=== PATIENT | female | born 1935 | race Caucasian/White ===

== ENCOUNTER 2020-06-03 17:38 | Inpatient (IN) ==
[2020-06-03] MEDS ORDERED: 0.9 % SODIUM CHLORIDE 1,000 ML IV ONE (18:10)
[2020-06-03] MEDS ORDERED: ONDANSETRON 4 MG/2 ML VIAL IV ONE (18:10)
[2020-06-03] MEDS ORDERED: VANCOMYCIN 1,000 MG in 0.9 % SODIUM CHLORIDE 250 ML IV ONE (18:10)
[2020-06-03] MEDS ORDERED: PIPERACILLIN SODIUM/TAZOBACTAM 3.375 GM in DEXTROSE 5% IN WATER 50 ML IV ONE (18:10)
--- NOTE | 2020-06-03 18:20 | Emergency Department Note ---
Weakness HPI General Chief complaint: Weakness Stated complaint: dizzines, weakness, UTI, fever Time Seen by Provider: 06/03/20 17:57 Source: patient and family Mode of arrival: ambulatory History of Present Illness HPI Narrative: Narrative: 84-year-old female comes in for worsening fever shortness of breath and hypoxia. She lives at [facility]. She Is currently being treated with ciprofloxacin for UTI And has a fever despite this. She is having some nausea but no vomiting or diarrhea. Her oxygen saturation here was 85%. She is not on home oxygen. She is a type I diabetic who takes insulin shots. Aminal pain as well. Denies dysuria. She does endorse a spider bite 2 days ago on her right lower leg that has since turned into redness over her entire right lower leg along with swelling. Related Data Home Medications Medication Instructions Recorded Confirmed hydrocodone 5 mg-acetaminophen 325 1 tab PO Q4-6H PRN 05/15/20 06/03/20 mg tablet blood sugar diagnostic, drum #1 05/30/20 06/03/20 blood-glucose meter, drum-type #1 05/30/20 06/03/20 furosemide 40 mg tablet 40 mg PO QAM 05/30/20 06/03/20 insulin glargine 100 unit/mL 11 unit SUBCUT QPM ml 05/30/20 06/03/20 subcutaneous solution methocarbamol 500 mg tablet 500 mg PO BID PRN tab 05/30/20 06/03/20 metoprolol succinate 25 mg 25 mg PO QDAY 05/30/20 06/03/20 tablet,extended release 24 hr potassium chloride 10 mEq 10 meq PO BID 05/30/20 06/03/20 tablet,extended release Previous Rx's Medication Instructions Recorded fluticasone propionate 50 2 spray INTRANASAL QDAY #16 g 05/15/20 mcg/actuation nasal spray,suspension pen needle, diabetic 31 gauge x #50 each 05/30/20 3/16" atorvastatin 10 mg tablet 10 mg PO QHS #90 tab 06/01/20 losartan 25 mg tablet 25 mg PO QDAY #90 tab 06/01/20 pramipexole 1 mg tablet 1 mg PO HS #90 tab 06/01/20 tamsulosin 0.4 mg capsule 0.4 mg PO HS #90 cap 06/01/20 Allergies Allergy/AdvReac Type Severity Reaction Status Date / Time gabapentin Allergy Unknown LEG Verified 06/03/20 17:45 SWELLING Review of Systems ROS ROS Narrative: Narrative: All systems ED: reviewed and negative except as stated. [facility] Narrative Patient History Narrative: Narrative: Medical/Surgical/Family History All Active Problems (Updated 06/03/20 @ 21:46 by Poncho Caceres MD) Pneumonia (Acute) Sepsis (Acute) Acute respiratory failure with hypoxia (Acute) Cellulitis of leg without foot, right (Acute) Disorder of kidney and ureter (Acute) Renal osteodystrophy (Acute) Vitamin D deficiency (Acute) Anemia of renal disease (Acute) Thoracic radiculitis (Acute) Vertigo (Acute) Acquired absence of other left toe(s) (Acute) Acquired absence of other right toe(s) (Acute) Other hammer toe(s) (acquired), left foot (Acute) Other hammer toe(s) (acquired), right foot (Acute) Hypercholesterolemia (Acute) Chronic kidney disease, stage 3 (moderate) (Acute) Intervertebral disc disorders with radiculopathy, thoracolumbar region (Acute) Menopausal and female climacteric states (Acute) Unspecified osteoarthritis, unspecified site (Acute) Gastro-esophageal reflux disease without esophagitis (Acute) Radiculopathy, lumbosacral region (Acute) Low back pain (Acute) Mixed hyperlipidemia (Acute) History of bunionectomy (Acute) History of total right knee replacement (Acute ~2014) History of total left knee replacement (Acute ~2007) History of surgical procedure (Acute ~2003) History of hysterectomy (Acute ~2003) Vitiligo (Acute) Restless leg (Acute) Proteinuria (Acute) Schatzki's ring (Acute) Osteoporosis (Acute) Depression (Acute) Lower abdominal pain, unspecified (Acute) Other visual disturbances (Acute) Cardiac arrhythmia, unspecified (Acute) Dorsopathy, unspecified (Acute) Dizziness and giddiness (Acute) 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) Other idiopathic scoliosis, site unspecified (Acute) Type 1 diabetes mellitus with hypoglycemia without coma, with long-term current use of insulin (Acute) Type 1 diabetes mellitus with hyperglycemia, without long-term current use of insulin (Acute) Pure hypercholesterolemia (Acute) 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 mellitus (Acute) Insomnia, unspecified (Acute) Edema, unspecified (Acute) Unspecified kidney failure (Acute) Type 1 diabetes mellitus without complications (Acute) Eustachian tube dysfunction (Acute) Poor balance (Acute) 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) History of surgery (Chronic) Radiculopathy, thoracic region (Chronic) Fall (Acute) History of CVA (cerebrovascular accident) (Chronic) History of nephrectomy, right (Chronic) Chronic abdominal pain (Chronic) Hypertension, essential (Chronic) Diabetes mellitus, type 2 (Chronic) Xerotic eczema (Acute) Abdominal pain (Acute) Hypoglycemia (Acute) UTI (urinary tract infection) (Acute) Medical History Acquired absence of other left toe(s) (Acute) Acquired absence of other right toe(s) (Acute) Anemia of renal disease (Acute) Cardiac arrhythmia, unspecified (Acute) Chronic abdominal pain (Chronic) Chronic kidney disease, stage 3 (moderate) (Acute) Depression (Acute) Diabetes mellitus, type 2 (Chronic) 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 mellitus (Acute) Disorder of kidney and ureter (Acute) Dizziness and giddiness (Acute) Dorsopathy, unspecified (Acute) Edema, unspecified (Acute) Gastro-esophageal reflux disease without esophagitis (Acute) History of CVA (cerebrovascular accident) (Chronic) Seen on MRI Hypercholesterolemia (Acute) Hypertension, essential (Chronic) Insomnia, unspecified (Acute) Intervertebral disc disorders with radiculopathy, thoracolumbar region (Acute) Low back pain (Acute) Lower abdominal pain, unspecified (Acute) Menopausal and female climacteric states (Acute) Mixed hyperlipidemia (Acute) Osteoporosis (Acute) Other hammer toe(s) (acquired), left foot (Acute) Other hammer toe(s) (acquired), right foot (Acute) Other idiopathic scoliosis, site unspecified (Acute) Other visual disturbances (Acute) Proteinuria (Acute) Pure hypercholesterolemia (Acute) Radiculopathy, lumbosacral region (Acute) Radiculopathy, thoracic region (Chronic) Renal cell cancer (Resolved) Right; status post nephrectomy Renal osteodystrophy (Acute) Restless leg (Acute) Schatzki's ring (Acute) Thoracic radiculitis (Acute) 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) Type 1 diabetes mellitus with hyperglycemia, without long-term current use of insulin (Acute) Type 1 diabetes mellitus with hypoglycemia without coma, with long-term current use of insulin (Acute) Type 1 diabetes mellitus without complications (Acute) Unspecified kidney failure (Acute) Unspecified osteoarthritis, unspecified site (Acute) Vertigo (Acute) Vitamin D deficiency (Acute) Vitiligo (Acute) Surgical History History of bunionectomy (Acute) Left foot, and right foot 2017 History of hysterectomy (Acute ~2003) poor outcome History of nephrectomy, right (Chronic) History of surgery (Chronic) TESI #1 T9-10 w/o sed 07/07/19 History of surgical procedure (Acute ~2003) urethra surgery-ureter reimplantation, damaged in hysterectomy History of total left knee replacement (Acute ~2007) History of total right knee replacement (Acute ~2014) Total knee replacement status (Acute) Family History (Updated 05/18/20 @ 14:47 by Alycia Bowie) Father , 81 yrs Emphysema, unspecified Stroke Brother Heart disease Type 1 diabetes Social History Smoking Status: Never smoker Alcohol Intake Frequency: a few times a month Substance Use: does not use Exam Narrative Narrative: Narrative: Febrile but mentating normally and able to answer questions appropriately. Alert and oriented.Normocephalic atraumatic. Conjunctive are clear sclerae white nonicteric. No nasal discharge or congestion. Wearing nasal cannula oxygen. Oropharynx pink moist. Neck is supple without lymphadenopathy thyromegaly or carotid bruit. Heart is Mildly tachycardic without murmur. Lungs are clear to auscultation bilaterally I do not hear any rales rhonchi or respiratory distress. However she is clearly hypoxic. I do not see any cyanosis. Abdomen is soft nontender nondistended. The right lower leg has redness circumferentially around the calf area as well as down the anterior portion down to the ankle. The foot and ankle otherwise appear normal. I do not see evidence of an insect bite or feel evidence of an abscess. The knee does not appear to be infected either.She is missing her second toe, this is surgically absent. Oxygen levels maintained on 6 L Nonrebreather mask. She was somnolent but was able to arouse her reevaluate her. Breathing is not labored Course Vital Signs Vital signs: Vital Signs Temperature 102.3 F H 06/03/20 17:39 Pulse Rate 105 H 06/03/20 17:39 Respiratory Rate 18 06/03/20 17:39 Blood Pressure 189/94 06/03/20 17:39 Pulse Oximetry (%) 85 L 06/03/20 17:39 Temperature 98.4 F 06/03/20 19:35 Pulse Rate 99 H 06/03/20 21:47 Respiratory Rate 21 06/03/20 21:47 Blood Pressure 107/55 06/03/20 20:30 Pulse Oximetry (%) 94 06/03/20 21:47 MDM MDM Narrative Medical decision making narrative: Narrative:Does look like she has Several Problems that may or may not be related. Fever hypoxia cellulitis of the right lower leg, Along with difficulty breathing and perhaps abdominal pain/nausea. Concern for respiratory infection along with the lower leg skin infection- This despite being on ciprofloxacin for UTI Will work-up with chest x-ray laboratory. Get blood cultures start IV fluids and IV antibiotics- Zosyn vancomycin. Tylenol for fever ABG shows pH 7.42 PCO2 45 PO2 of 50 On 2 L nasal cannula oxygen, we will put her on nonrebreather mask. Chest x-ray Does not show a pneumonia However CT angiogram does show bilateral small lower lobe infiltrates. Noted leukocytosis Of 17 on laboratory but no lactic acidosis. Patient will need to come in the hospital for treatment of acute respiratory issue and continued IV antibiotic. Discussed situation with Dr. Strickland, Hospitalist. He agreed to accept the patient for further care and evaluation in the hospital Lab Data Lab results reviewed: Yes I reviewed the patient's lab results. Result diagrams: 06/03/20 19:30 06/03/20 18:35 Labs: Lab Results 06/03/20 06/03/20 06/03/20 Range/Units 18:35 18:35 18:35 WBC TNP RBC TNP Hgb TNP Hct TNP MCV TNP MCH TNP MCHC TNP RDW TNP Plt Count TNP MPV TNP Total Counted Seg Neutrophils % (38-78) % Band Neutrophils % (0-10) % Lymphocytes % (15-49) % Monocytes % (Manual) (1-12) % Platelet Estimate (NORMAL) RBC Morphology (NORMAL) VBG Lactic Acid 1.2 (0.5-2.0) mmol/L Sodium 134 (133-145) mmol/L Potassium 4.2 (3.3-5.1) mmol/L Chloride 95 L (96-108) mmol/L Carbon Dioxide 26 (22-30) mmol/L Anion Gap 13.0 (8-16) BUN 15 (8-23) mg/dl Creatinine 1.1 (0.6-1.1) mg/dl GFR Calculation 45 Glucose 149 H (70-105) mg/dL Calcium 9.9 (8.6-10.4) mg/dl Magnesium 1.9 (1.6-2.5) mg/dL Total Bilirubin 1.4 H (0.0-1.0) mg/dL AST 28 (0-37) U/l ALT 20 (0-40) U/l Alkaline Phosphatase 92 (39-117) U/L Total Protein 8.1 (5.9-8.4) gm/dL Albumin 4.3 (3.2-5.2) gm/dL Globulin 3.8 H (2.2-3.7) gm/dL Albumin/Globulin Ratio 1.1 (1.0-2.3) /06/15 Range/Units 19:30 WBC 17.1 H RBC 4.52 Hgb 14.3 Hct 43.7 MCV 96.7 MCH 31.6 MCHC 32.7 RDW 14.0 Plt Count 110 L MPV 11.1 H Total Counted 100 Seg Neutrophils % 74 (38-78) % Band Neutrophils % 8 (0-10) % Lymphocytes % 10 L (15-49) % Monocytes % (Manual) 8 (1-12) % Platelet Estimate Decreased (NORMAL) RBC Morphology Normal (NORMAL) VBG Lactic Acid (0.5-2.0) mmol/L Sodium (133-145) mmol/L Potassium (3.3-5.1) mmol/L Chloride (96-108) mmol/L Carbon Dioxide (22-30) mmol/L Anion Gap (8-16) BUN (8-23) mg/dl Creatinine (0.6-1.1) mg/dl GFR Calculation Glucose (70-105) mg/dL Calcium (8.6-10.4) mg/dl Magnesium (1.6-2.5) mg/dL Total Bilirubin (0.0-1.0) mg/dL AST (0-37) U/l ALT (0-40) U/l Alkaline Phosphatase (39-117) U/L Total Protein (5.9-8.4) gm/dL Albumin (3.2-5.2) gm/dL Globulin (2.2-3.7) gm/dL Albumin/Globulin Ratio (1.0-2.3) Radiology Data Radiology results reviewed: Yes I reviewed the patient's radiology results. Radiology results narrative: Chest x-ray shows no acute infiltrate but increased pulmonary vascular markings noted. CT angiogram shows bilateral lower lobe pneumonia but no Embolism was noted. Linear embolism could not be excluded secondary to artifact CC TIME Critical Care Time Critical Care Time: Yes Total Critical Care Time: 35 Attestation: Approximately 35 minutes of critical care time on this patient. Which includes serial exams, Discussing results with her, documentation and coordination Of care. I was immediately available to the patient the entire time she was in the ER Discharge Plan Patient/Caregiver Discharge Instructions Pt seen by [employer] [facility]KER/PA only: No Clinical Impression: Acute respiratory failure with hypoxia, Cellulitis of leg without foot, right Pneumonia Qualifiers: Pneumonia type: due to unspecified organism Laterality: bilateral Lung location: lower lobe of lung Qualified Code(s): J18.9 - Pneumonia, unspecified organism Sepsis Qualifiers: Sepsis type: sepsis due to unspecified organism Sepsis acute organ dysfunction status: unspecified Qualified Code(s): A41.9 - Sepsis, unspecified organism Patient Disposition: Xfer As Inpt ([facility]) Condition: Serious Follow up with: Ale Long PA-C [Primary Care Provider] - Prescriptions: No Action insulin glargine 100 unit/mL solution 11 unit subcut QPM RF: 0 methocarbamol 500 mg tablet 500 mg PO BID PRN (Reason: muscle spasm) RF: 0 metoprolol succinate 25 mg tablet extended release 24 hr 25 mg PO QDAY RF: 0 furosemide 40 mg tablet 40 mg PO QAM RF: 0 potassium chloride 10 mEq tablet extended release 10 meq PO BID RF: 0 (DME) pen needle, diabetic [BD Ultra-Fine Mini Pen Needle] 31 gauge x 3/16" needle See Rx Instructions .ROUTE .MEDSUPPLY Qty: 50 RF: 0 (DME) blood-glucose meter, drum-type Kit See Rx Instructions .ROUTE .MEDSUPPLY Qty: 1 RF: 0 (DME) blood sugar diagnostic, drum Strip See Rx Instructions .ROUTE .MEDSUPPLY Qty: 1 RF: 0 atorvastatin 10 mg tablet 10 mg PO QHS Qty: 90 RF: 0 losartan 25 mg tablet 25 mg PO QDAY Qty: 90 RF: 0 pramipexole 1 mg tablet 1 mg PO HS Qty: 90 RF: 0 tamsulosin 0.4 mg capsule 0.4 mg PO HS Qty: 90 RF: 0 hydrocodone-acetaminophen 5-325 mg tablet 1 tab PO Q4-6H PRN (Reason: Pain) RF: 0 fluticasone propionate [Flonase Allergy Relief] 50 mcg/actuation spray,suspension 2 spray INTRANASAL QDAY Qty: 16 RF: 3
[2020-06-03] MEDS ORDERED: ACETAMINOPHEN 325 MG TABLET PO ONE (19:17)
[2020-06-03 19:56] LABS: Hematocrit 43.7 % (34.1-44.9); Hemoglobin 14.3 g/dL (11.2-15.7); Mean Cell Volume 96.7 fL (80.0-100.0); Mean Corpuscular HGB Conc 32.7 g/dL (31.0-36.0); Mean Platelet Volume 11.1 fL (7.4-10.4); RBC 4.52 M/mcL (3.59-5.38); WBC 17.1 K/mcL (4.50-11.00)
[2020-06-03 19:56] LABS: ALT/SGPT 20 U/l (0-40); AST/SGOT 28 U/l (0-37); Albumin 4.3 gm/dL (3.2-5.2); Albumin/Globulin Ratio 1.1 (1.0-2.3); Alkaline Phosphatase 92 U/L (39-117); Bilirubin,Total 1.4 mg/dL (0.0-1.0); Blood Urea Nitrogen 15 mg/dl (8-23); Calcium 9.9 mg/dl (8.6-10.4); Carbon Dioxide 26 mmol/L (22-30); Globulin 3.8 gm/dL (2.2-3.7); Glomerular Filtration Rate 45; Glucose 149 mg/dL (70-105)
[2020-06-03 19:58] LABS: Platelet Count 110 K/mcL (140-440)
[2020-06-03 19:58] LABS: Chloride 95 mmol/L (96-108)
[2020-06-03] MEDS ORDERED: MELATONIN 3 MG TABLET PO PRN (21:00)
[2020-06-03 21:15] LABS: Band Neutrophils % 8 % (0-10); Lymphocytes % 10 % (15-49); Monocytes % (Manual) 8 % (1-12); Platelet Estimate DECREASED (NORMAL); RBC Morphology NORMAL (NORMAL); Segmented Neutrophils % 74 % (38-78)
--- NOTE | 2020-06-03 22:08 | Internal Med History&Physical ---
HPI History of Present Illness Patient information: Note initiated : 06/03/20 at 10:06 pm Service Date, if different from initiated Date: [] Patient: Shakira Hou a 84 y/o F admitted on for dizzines, weakness, UTI, fever. Chief Complaint: Fever/weakness and dizziness History of present illness: Ms. Hou is a 84 year old F resident of assisted living who presents to the ER with 2 days onset of worsening weakness, dizziness fever and shortness of breath. She was undergoing treatment on ciprofloxacin for UTI. However her symptoms have continued to progress. She also noticed right lower extremity redness and swelling following a spider bite 3 days ago which is now extremely tender to touch and while weightbearing. Initial work-up in the ER was consistent with severe sepsis with a white count of 17,000. She was in respiratory failure requiring 6 L oxygen/bilateral lower lobe pneumonia on CT and pyuria. Patient was promptly started on antibiotics after cultures were drawn. Hospitalist service was consulted. At the time of evaluation patient is alert and oriented. She was able to answer most questions. She is significantly short of breath requiring 6 L oxygen. She endorses to history as above. Denies chest pain, headache, photophobia Review of systems 10 point review of system was performed and is negative except for ones discussed above [facility] Medical History Acquired absence of other left toe(s) (Acute) Acquired absence of other right toe(s) (Acute) Anemia of renal disease (Acute) Cardiac arrhythmia, unspecified (Acute) Chronic abdominal pain (Chronic) Chronic kidney disease, stage 3 (moderate) (Acute) Depression (Acute) Diabetes mellitus, type 2 (Chronic) 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 mellitus (Acute) Disorder of kidney and ureter (Acute) Dizziness and giddiness (Acute) Dorsopathy, unspecified (Acute) Edema, unspecified (Acute) Gastro-esophageal reflux disease without esophagitis (Acute) History of CVA (cerebrovascular accident) (Chronic) Seen on MRI Hypercholesterolemia (Acute) Hypertension, essential (Chronic) Insomnia, unspecified (Acute) Intervertebral disc disorders with radiculopathy, thoracolumbar region (Acute) Low back pain (Acute) Lower abdominal pain, unspecified (Acute) Menopausal and female climacteric states (Acute) Mixed hyperlipidemia (Acute) Osteoporosis (Acute) Other hammer toe(s) (acquired), left foot (Acute) Other hammer toe(s) (acquired), right foot (Acute) Other idiopathic scoliosis, site unspecified (Acute) Other visual disturbances (Acute) Proteinuria (Acute) Pure hypercholesterolemia (Acute) Radiculopathy, lumbosacral region (Acute) Radiculopathy, thoracic region (Chronic) Renal cell cancer (Resolved) Right; status post nephrectomy Renal osteodystrophy (Acute) Restless leg (Acute) Schatzki's ring (Acute) Thoracic radiculitis (Acute) 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) Type 1 diabetes mellitus with hyperglycemia, without long-term current use of insulin (Acute) Type 1 diabetes mellitus with hypoglycemia without coma, with long-term current use of insulin (Acute) Type 1 diabetes mellitus without complications (Acute) Unspecified kidney failure (Acute) Unspecified osteoarthritis, unspecified site (Acute) Vertigo (Acute) Vitamin D deficiency (Acute) Vitiligo (Acute) Surgical History History of bunionectomy (Acute) Left foot, and right foot 2017 History of hysterectomy (Acute ~2003) poor outcome History of nephrectomy, right (Chronic) History of surgery (Chronic) TESI #1 T9-10 w/o sed 07/07/19 History of surgical procedure (Acute ~2003) urethra surgery-ureter reimplantation, damaged in hysterectomy History of total left knee replacement (Acute ~2007) History of total right knee replacement (Acute ~2014) Total knee replacement status (Acute) Family History (Updated 05/18/20 @ 14:47 by Alycia Bowie) Father , 81 yrs Emphysema, unspecified Stroke Brother Heart disease Type 1 diabetes Social History (Updated 05/18/20 @ 14:47 by Alycia Bowie) marital status: smoking status: Never smoker alcohol intake frequency: a few times a month substance use type: does not use MEDS/ALLERGIES Home Medications and Allergies Home Medications Medication Instructions Recorded Confirmed Type fluticasone propionate 50 2 spray INTRANASAL QDAY #16 g 05/15/20 06/03/20 Rx mcg/actuation nasal spray,suspension hydrocodone 5 mg-acetaminophen 325 1 tab PO Q4-6H PRN 05/15/20 06/03/20 History mg tablet blood sugar diagnostic, drum #1 05/30/20 06/03/20 History blood-glucose meter, drum-type #1 05/30/20 06/03/20 History furosemide 40 mg tablet 40 mg PO QAM 05/30/20 06/03/20 History insulin glargine 100 unit/mL 11 unit SUBCUT QPM ml 05/30/20 06/03/20 History subcutaneous solution methocarbamol 500 mg tablet 500 mg PO BID PRN tab 05/30/20 06/03/20 History metoprolol succinate 25 mg 25 mg PO QDAY 05/30/20 06/03/20 History tablet,extended release 24 hr pen needle, diabetic 31 gauge x #50 each 05/30/20 06/03/20 Rx 3/16" potassium chloride 10 mEq 10 meq PO BID 05/30/20 06/03/20 History tablet,extended release atorvastatin 10 mg tablet 10 mg PO QHS #90 tab 06/01/20 06/03/20 Rx losartan 25 mg tablet 25 mg PO QDAY #90 tab 06/01/20 06/03/20 Rx pramipexole 1 mg tablet 1 mg PO HS #90 tab 06/01/20 06/03/20 Rx tamsulosin 0.4 mg capsule 0.4 mg PO HS #90 cap 06/01/20 06/03/20 Rx Allergies Allergy/AdvReac Type Severity Reaction Status Date / Time gabapentin Allergy Unknown LEG Verified 06/03/20 17:45 SWELLING EXAM Constitutional Vitals: Temp Pulse Resp BP Pulse Ox 98.4 F 99 H 21 107/55 94 06/03/20 19:35 06/03/20 21:47 06/03/20 21:47 06/03/20 20:30 06/03/20 21:47 Patient is fatigued, lethargic but oriented Head normocephalic Oral cavity moist No ear nose discharge Asymmetric eyelids however conjugate gaze Neck supple no lymphadenopathy S1-S2 occasionally irregular Nonlabored breathing Nondistended nontender abdomen Lower extremity rt-redness/erythema mid leg, lymphedema bilateral lower extremity Skin no suspicious lesion Psych anxious but alert cooperative Neuro normal higher function DATA Data Completed and Pending Labs on day of discharge: Labs from last 24 hours 06/03/20 06/03/20 06/03/20 19:45 19:30 18:35 WBC 17.1 H RBC 4.52 Hgb 14.3 Hct 43.7 MCV 96.7 MCH 31.6 MCHC 32.7 RDW 14.0 Plt Count 110 L MPV 11.1 H Total Counted 100 Seg Neutrophils % 74 Band Neutrophils % 8 Lymphocytes % 10 L Monocytes % (Manual) 8 Platelet Estimate Decreased RBC Morphology Normal VBG Lactic Acid 1.2 Sodium Potassium Chloride Carbon Dioxide Anion Gap BUN Creatinine GFR Calculation Glucose Calcium Magnesium Total Bilirubin AST ALT Alkaline Phosphatase Total Protein Albumin Globulin Albumin/Globulin Ratio Procalcitonin Pending 06/03/20 06/03/20 18:35 18:35 WBC TNP RBC TNP Hgb TNP Hct TNP MCV TNP MCH TNP MCHC TNP RDW TNP Plt Count TNP MPV TNP Total Counted Seg Neutrophils % Band Neutrophils % Lymphocytes % Monocytes % (Manual) Platelet Estimate RBC Morphology VBG Lactic Acid Sodium 134 Potassium 4.2 Chloride 95 L Carbon Dioxide 26 Anion Gap 13.0 BUN 15 Creatinine 1.1 GFR Calculation 45 Glucose 149 H Calcium 9.9 Magnesium 1.9 Total Bilirubin 1.4 H AST 28 ALT 20 Alkaline Phosphatase 92 Total Protein 8.1 Albumin 4.3 Globulin 3.8 H Albumin/Globulin Ratio 1.1 Procalcitonin A/P Narrative A/P Narrative: * Severe sepsis with end organ dysfunction, elevated bilirubin/creatinine/hypoxia. White count 17 K continue sepsis management guidelines. Vasopressors if indicated. Pancultures and broad antibiotics * Hypoxic resp failure secondary to bilateral lower lobe pneumonia. Continue supplemental oxygen/pulmonary toilet and aspiration precautions * B/L LL PNA-start broad antibiotic coverage. * LE cellulitis-antibiotic coverage/limb elevation * Complicated UTI-antibiotic coverage * History of DM type II continue basal prandial insulin * History of hypertension hold antihypertensives * Restless leg syndrome continue pramipexole * Hyperlipidemia on statin * Lymphedema on torsemide * Chronic pain on hydrocodone * Full code * Prophylaxis Heparin PLAN * PCU inpatient admit * Broad ABx * Supplemental O2 * ABG/CXR * Pre-existing medical condition management as above * PT OT/nutrition support Time Spent With Patient Time: Total time spent is greater than 50% in coordination of care (as documented) at patient's floor/unit and/or counseling patient:
[2020-06-03] MEDS ORDERED: HYDROcodone/APAP 5/325MG TABLET PO PRN (23:05)
[2020-06-03] MEDS ORDERED: POLYETHYLENE GLYCOL 3350 17 GM PACKET PO PRN (23:05)
[2020-06-03] MEDS ORDERED: [UNRECOGNIZED DRUG - OTHER] SCH (23:05)
[2020-06-03] MEDS ORDERED: VANCOMYCIN PER PHARMACY IV SCH (23:05)
[2020-06-03] MEDS ORDERED: ACETAMINOPHEN 325 MG TABLET PO PRN (23:05)
[2020-06-03] MEDS ORDERED: [UNRECOGNIZED DRUG - OTHER] SCH (23:05)
[2020-06-03] MEDS ORDERED: ACETAMINOPHEN 650 MG/65 ML BOTTLE IV PRN (23:05)
[2020-06-03] MEDS ORDERED: ONDANSETRON 4 MG/2 ML VIAL IV PRN (23:05)
[2020-06-03] MEDS ORDERED: BISACODYL 10 MG SUPP.RECT PR PRN (23:05)
[2020-06-03] MEDS ORDERED: ONDANSETRON 4 MG ODT TABLET SL PRN (23:05)
[2020-06-03] MEDS ORDERED: DIABETIC SCH (23:05)
[2020-06-03] MEDS ORDERED: DEXTROSE 50% 50 ML VIAL IV PRN (23:05)
[2020-06-03] MEDS ORDERED: METHOCARBAMOL 500 MG TABLET PO PRN (23:05)
[2020-06-03] MEDS ORDERED: guaiFENesin/CODEINE 10 ML UDC PO PRN (23:05)
[2020-06-03] MEDS ORDERED: DEXTROSE 31 GM ORAL.SUSP PO PRN (23:05)
[2020-06-03] MEDS ORDERED: [UNRECOGNIZED DRUG - OTHER] SCH (23:05)
[2020-06-03] MEDS ORDERED: MAGNESIUM SULFATE 2 GM/50 ML BAG IV PRN (23:05)
[2020-06-03] MEDS ORDERED: POTASSIUM CHLORIDE 20 MEQ PACKET PO PRN (23:05)
[2020-06-03] MEDS: PIPERACILLIN SODIUM/TAZOBACTAM 3.375 GM in DEXTROSE 5% IN WATER 50 ML IV SCH (23:45)
[2020-06-03] MEDS: 0.9 % SODIUM CHLORIDE 10 ML SYRINGE IV SCH (23:59)
[2020-06-03] MEDS: 0.9 % SODIUM CHLORIDE 1,000 ML IV SCH (23:59)
[2020-06-04 01:10] LABS: Appearance,Urine CLEAR; Bacteria,Urine 0 /hpf (0); Bilirubin,Urine NEG (NEG); Color,Urine YELLOW; Culture Indicated,Urine NO; Glucose,Urine (UA) 50 mg/dL (NEG); Ketones,Urine NEG (NEG); Leukocyte Esterase,Urine NEG /uL (NEG); Nitrate,Urine NEG (NEG); Protein,Urine 100 mg/dL (NEG); Specific Gravity,Urine 1.027 (1.000-1.035); Urine Blood NEG mg/dL (<0.03); Urine RBC 2 /hpf (0-1); Urine Squamous Epithelial Cell < 1 /hpf (0-4); Urine WBC 2 /hpf (0-4); Urobilinogen,Urine NEG (NEG)
[2020-06-04] MEDS: PIPERACILLIN SODIUM/TAZOBACTAM 3.375 GM in DEXTROSE 5% IN WATER 50 ML IV SCH ×4 (04:56→23:54)
[2020-06-04] MEDS: 0.9 % SODIUM CHLORIDE 10 ML SYRINGE IV SCH ×3 (04:57→21:21)
--- NOTE | 2020-06-04 05:33 | XRay Report ---
CLINICAL INFORMATION: fever, SOB, hypoxia COMPARISON: 08/04/2007 two-view chest and portable chest 12/23/2006 FINDINGS: Mild cardiomegaly is new from prior exam. Tortuous thoracic aorta appreciated. Pulmonary vessels are mildly distended. Minimal interstitial edema seen throughout both lungs with tiny amount of fluid in the minor fissure and a left pleural effusion. There is minimal airspace disease both medial bases - likely atelectasis. IMPRESSION: Mild CHF Minor airspace disease both medial bases likely atelectasis Interpreted and Authenticated by: Dima Shell 06/04/20
[2020-06-04 06:26] LABS: Hemoglobin 13.4 g/dL (11.2-15.7); Mean Cell Volume 101.9 fL (80.0-100.0); Mean Corpuscular HGB Conc 30.5 g/dL (31.0-36.0); Mean Platelet Volume 10.7 fL (7.4-10.4); Platelet Count 104 K/mcL (140-440); RBC 4.32 M/mcL (3.59-5.38); Red Cell Distribution Width 14.2 % (11.5-14.5); WBC 16.4 K/mcL (4.50-11.00)
--- NOTE | 2020-06-04 06:38 | Cat Scan Report ---
CLINICAL INFORMATION: Hypoxia and fever COMPARISON: None. TECHNIQUE: ml of Isovue-370 were injected intravenously. Using SmartPrep to maximize pulmonary artery opacification, .625mm helical slices were obtained from the lung apices through the lung bases. Following reconstruction, 2.5 mm sagittal, coronal, and axial reformations were processed. The exam was reviewed at mediastinal, lung, and bone windows. The exam was performed using radiation dose optimization techniques including, but not limited to, automated exposure control, adjustment of the mA and/or kV according to patient size and use of iterative reconstruction technique. FINDINGS: Mediastinal windows show poor opacification of pulmonary arteries. There is no evidence of central emboli, however. The central pulmonary arteries are mildly enlarged with a mean pulmonary diameter of 3.5 cm. Thoracic aorta is well-opacified and normal in diameter. Heart is moderately enlarged with heavy calcific plaque in the coronary arteries. There is no adenopathy in the mediastinal hilar or axillary region. Mild edema is seen in the mediastinum. Multinodular adenomatous thyroid goiter appreciated. Esophagus is grossly normal. Pulmonary parenchymal windows show subsegmental atelectasis in both posterior lower lobes. No effusions. Bone windows show moderate degenerative disease throughout the thoracic spine, but no focal osseous lesions. Images through the superior abdomen show small amount of ascites in the upper abdomen. IMPRESSION: 1. Limited exam due to poor opacification of pulmonary arteries. No evidence of central emboli. Consider VQ scan for pulmonary embolus is strongly suspected. 2. Subsegmental atelectasis - both posterior lower lobes 3. Mild mediastinal edema significance and etiology uncertain. It may be related to prior CHF 4. Moderate cardiomegaly with very heavy calcific plaque in the coronary arteries 5. Small amount of ascites. Interpreted and Authenticated by: Dima Shell 06/04/20
[2020-06-04 06:49] LABS: Chloride 97 mmol/L (96-108)
[2020-06-04 06:52] LABS: ALT/SGPT 17 U/l (0-40); AST/SGOT 32 U/l (0-37); Albumin 2.8 gm/dL (3.2-5.2); Albumin/Globulin Ratio 0.8 (1.0-2.3); Alkaline Phosphatase 73 U/L (39-117); Bilirubin,Direct 0.3 mg/dL (0.0-0.3); Bilirubin,Total 1.3 mg/dL (0.0-1.0); Blood Urea Nitrogen 15 mg/dl (8-23); Calcium 8.5 mg/dl (8.6-10.4); Carbon Dioxide 19 mmol/L (22-30); Globulin 3.4 gm/dL (2.2-3.7); Glomerular Filtration Rate 51; Glucose 160 mg/dL (70-105); Lactate Dehydrogenase 360 U/L (94-250); Phosphorous 4.3 mg/dL (2.7-4.5); Triglycerides 69 mg/dl (<150); Uric Acid 2.8 mg/dL (2.5-8.0)
[2020-06-04 07:58] LABS: Band Neutrophils % 2 % (0-10); Lymphocytes % 7 % (15-49); Macrocytosis 1+ (NONE SEEN); Monocytes % (Manual) 3 % (1-12); Platelet Estimate DECREASED (NORMAL); RBC Morphology ABNORM (NORMAL); Segmented Neutrophils % 88 % (38-78)
[2020-06-04] MEDS: MULTIVIT,THER IRON,CA,FA & MIN 1 TABLET PO SCH (08:21)
[2020-06-04] MEDS: METOPROLOL SUCCINATE 25 MG TAB.XL.24H PO SCH (08:21)
[2020-06-04] MEDS: INSULIN LISPRO 1 UNIT/0.01 ML UNIT SQ SCH ×4 (08:21→21:21)
[2020-06-04] MEDS: FUROSEMIDE 40 MG TABLET PO SCH (08:21)
[2020-06-04] MEDS: POTASSIUM CHLORIDE 10 MEQ TABLET PO SCH ×2 (08:21→17:40)
[2020-06-04] MEDS: sitaGLIPtin 50 MG TABLET PO SCH (08:21)
[2020-06-04] MEDS: DOCUSATE SODIUM 100 MG CAPSULE PO SCH ×2 (08:21→21:20)
[2020-06-04] MEDS: HEPARIN 5,000 UNIT/ML VIAL SQ SCH ×2 (08:22→21:20)
[2020-06-04] MEDS: FLUTICASONE PROPIONATE SPRAY.NAS NS SCH (08:22)
[2020-06-04] MEDS: VANCOMYCIN 1,000 MG in 0.9 % SODIUM CHLORIDE 250 ML IV SCH (08:58)
--- NOTE | 2020-06-04 10:20 | Internal Med Progress Note ---
SUBJECTIVE Subjective Patient information: Note initiated : 06/04/20 at 10:14 am Service Date, if different from initiated Date: [] Patient: Shakira Hou a 84 y/o F admitted on 06/03/20 for dizzines, weakness, UTI, fever. Chief Complaint: Ms. Hou is a 84 year old F resident of assisted living who presents to the ER with 2 days onset of worsening weakness, dizziness fever and shortness of breath. She was undergoing treatment on ciprofloxacin for UTI. However her symptoms have continued to progress. She also noticed right lower extremity redness and swelling following a spider bite 3 days ago which is now extremely tender to touch and while weightbearing. Initial work-up in the ER was consistent with severe sepsis with a white count of 17,000. She was in respiratory failure requiring 6 L oxygen/bilateral lower lobe pneumonia on CT and pyuria. Patient was promptly started on antibiotics after cultures were drawn. Hospitalist service was consulted. At the time of evaluation patient is alert and oriented. She was able to answer most questions. She is significantly short of breath requiring 6 L oxygen. She endorses to history as above. Denies chest pain, headache, photophobia 06/04-much improved dizziness and weakness however remains on 6 L oxygen. White count improving. Lower extremity redness and swelling much improved, more lucid alert. No overnight telemetry events. Cultures negative so far. Constitutional Vitals: Vital Signs Temp Pulse Resp BP Pulse Ox 99.6 F H 97 H 23 H 108/55 94 06/04/20 04:01 06/04/20 08:34 06/04/20 09:44 06/04/20 08:34 06/04/20 08:34 Period Temp Pulse Resp BP Sys/Glez Pulse Ox Last 24 Hr 98.1 F-102.3 F 79-106 18-37 96-189/48-149 85-100 Intake and Output 06/03/20 06/04/20 06/04/20 21:59 05:59 13:59 Intake Total 1300 550 240 Output Total 700 200 Balance 1300 -150 40 Weight 68.039 kg 67.84 kg Alert oriented On 6 L oxygen Improving lymphedema/lower extremity redness No anxiety Intake & Output: Intake & Output 06/03/20 06/04/20 06/04/20 21:59 05:59 13:59 Intake Total 1300 550 240 Output Total 700 200 Balance 1300 -150 40 Weight 68.039 kg 67.84 kg Intake: IV 1300 100 Sodium Chloride 0.9% 1,000 ml @ 1000 Wide Open IV .Q0M ONE Rx#: [id number] Zosyn 3.375 gm In Dextrose 5% 50 100 in Water 50 ml @ 100 mls/hr IV Q6H [facility] Rx#:[id number] Vancomycin 1,000 mg In Sodium 250 Chloride 0.9% 250 ml @ 250 mls/ hr IV ONCE ONE Rx#:[id number] Oral 450 240 Output: Void Amount 700 200 Other: Meal Breakfast Percent of Meal Consumed 100% Urine Appearance Clear Clear Urine Color Dark [place] Bright Yellow Urine Odor Strong OBJ DATA Labs CBC & Chem 7: 06/04/20 05:35 06/04/20 05:35 Labs: Abnormal Lab Results 06/04/20 06/04/20 06/03/20 05:35 05:35 23:35 WBC 16.4 H MCV 101.9 H MCHC 30.5 L Plt Count 104 L MPV 10.7 H Seg Neutrophils % 88 H Lymphocytes % 7 L RBC Morphology Abnorm A Macrocytosis 1+ A Sodium 130 L Chloride Carbon Dioxide 19 L Glucose 160 H Calcium 8.5 L Total Bilirubin 1.3 H Lactate Dehydrogenase 360 H Albumin 2.8 L Globulin Albumin/Globulin Ratio 0.8 L Urine Protein 100 A Urine Glucose (UA) 50 A Urine RBC 2 H 06/03/20 06/03/20 19:30 18:35 WBC 17.1 H MCV MCHC Plt Count 110 L MPV 11.1 H Seg Neutrophils % Lymphocytes % 10 L RBC Morphology Macrocytosis Sodium Chloride 95 L Carbon Dioxide Glucose 149 H Calcium Total Bilirubin 1.4 H Lactate Dehydrogenase Albumin Globulin 3.8 H Albumin/Globulin Ratio Urine Protein Urine Glucose (UA) Urine RBC Meds: Medications Acetaminophen (Tylenol) 650 mg PO Q4-6HP PRN; Protocol PRN Reason: Per Pain Protocol/Fever > 101 Hydrocodone Bitart/Acetaminophen ([place] 5/325mg) 1 tab PO Q4-6HP PRN; Protocol PRN Reason: Pain Atorvastatin Calcium (Lipitor) 10 mg PO HS [facility] Bisacodyl (Dulcolax) 10 mg [place] Q2-3DAYS PRN PRN Reason: Constipation Dextrose (Dextrose 50%) 0 ml IV UD PRN PRN Reason: Hypoglycemia Diagnostic Test (Pha) (Accu-Chek) 1 each FS ACHS [facility] Last Admin: 06/04/20 08:20 Dose: 1 each Documented by: Docusate Sodium (Colace) 100 mg PO BID [facility] Last Admin: 06/04/20 08:21 Dose: 100 mg Documented by: Fluticasone Propionate (Flonase) 1 spray NS DAILY [facility] Last Admin: 06/04/20 08:22 Dose: Not Given Documented by: Furosemide (Lasix) 40 mg PO QAM [facility] Last Admin: 06/04/20 08:21 Dose: 40 mg Documented by: Glucose (Insta-Glucose) 15 gm PO PRN PRN PRN Reason: Hypoglycemia Guaifenesin/Codeine Phosphate (Robitussin Ac) 10 ml PO Q4HP PRN PRN Reason: Cough Heparin Sodium (Porcine) (Heparin) 5,000 unit SQ Q12 [facility] Last Admin: 06/04/20 08:22 Dose: 5,000 unit Documented by: Sodium Chloride (Sodium Chloride 0.9%) 1,000 mls @ 50 mls/hr IV .Q20H [facility] Stop: 06/06/20 11:04 Last Admin: 06/03/20 23:59 Dose: 50 mls/hr Documented by: Acetaminophen (Ofirmev) 650 mg in 65 mls @ 130 mls/hr IV Q6HP PRN; Protocol PRN Reason: Per Pain Protocol/Fever > 101 Magnesium Sulfate (Magnesium Sulfate) 2 gm in 50 mls @ 50 mls/hr IV UD PRN PRN Reason: MG = or < 1.7 Piperacillin Sod/Tazobactam (Sod 3.375 gm/ Dextrose) 50 mls @ 100 mls/hr IV Q6H [facility]; Protocol Last Infusion: 06/04/20 05:26 Dose: Infused Documented by: Vancomycin HCl 1,000 mg/ (Sodium Chloride) 250 mls @ 250 mls/hr IV DAILY [facility] Last Admin: 06/04/20 08:58 Dose: 250 mls/hr Documented by: Insulin Glargine (Lantus) 11 unit SQ QPM [facility] Insulin Human Lispro (Humalog) 0 unit SQ ACHS [facility]; Protocol Last Admin: 06/04/20 08:21 Dose: 1 unit Documented by: Iron Carb/Multivit/Copan/Folic Acid (Multivitamin W/Minerals) 1 tab PO DAILY [facility] Last Admin: 06/04/20 08:21 Dose: 1 tab Documented by: Melatonin (Melatonin 3mg Tablet) 3 mg PO HSP PRN PRN Reason: Insomnia Methocarbamol (Robaxin) 500 mg PO BIDP PRN PRN Reason: muscle spasm Metoprolol Succinate (Toprol Xl) 25 mg PO QDAY [facility] Last Admin: 06/04/20 08:21 Dose: 25 mg Documented by: Ondansetron HCl (Zofran Odt) 4 mg SL Q4-6HP PRN; Protocol PRN Reason: Nausea And Vomiting Ondansetron HCl (Zofran) 4 mg IV Q4-6HP PRN; Protocol PRN Reason: Nausea And Vomiting Polyethylene Glycol (Miralax) 17 gm PO DAILYP PRN PRN Reason: Constipation Potassium Chloride (Kdur) 10 meq PO BIDCC [facility] Last Admin: 06/04/20 08:21 Dose: 10 meq Documented by: Potassium Chloride (Klor-Con) 40 meq PO DAILYP PRN PRN Reason: K+ < 3.5 Pramipexole Dihydrochloride (Mirapex) 0.75 mg PO HS [facility] Senna/Docusate Sodium (Senna Plus Tablet) 1 tab PO HS [facility] Sitagliptin Phosphate (Januvia) 50 mg PO DAILY [facility] Last Admin: 06/04/20 08:21 Dose: 50 mg Documented by: Sodium Chloride (Saline Flush) 10 ml IV Q8 [facility] Last Admin: 06/04/20 04:57 Dose: Not Given Documented by: Tamsulosin HCl (Flomax) 0.4 mg PO HS [facility] Vancomycin HCl (Vancomycin Per Pharmacy) 1 order IV UD [facility]; Protocol A/P Narrative A/P Narrative: * Severe sepsis with end organ dysfunction, elevated bilirubin/creatinine/hypoxia. White count improving. Await pancultures, continue broad antibiotics * Hyponatremia at 130. Continue monitoring. * Hypoxic resp failure secondary to bilateral lower lobe pneumonia. Continue supplemental oxygen/pulmonary toilet and aspiration precautions * B/L LL PNA- continue broad antibiotic coverage/pulmonary toilet * LE cellulitis-continue antibiotic coverage/limb elevation * Complicated UTI-improving on antibiotics * History of DM type II continue basal prandial insulin * History of hypertension hold antihypertensives until systolics over 140 * Restless leg syndrome continue pramipexole * Hyperlipidemia on statin * Lymphedema on torsemide * Chronic pain on hydrocodone * Full code * Prophylaxis Heparin PLAN * Continue antibiotic coverage and de-escalate based on sensitivities * Wean oxygen as tolerated * Serial ABG/CXR * Pre-existing medical condition management as above * PT OT/nutrition support Time Spent With Patient Time: Total time spent is greater than 50% in coordination of care (as documented) at patient's floor/unit and/or counseling patient: QUALITY Stroke Symptom Onset Unknown: No VTE Deep Vein Thrombosis/Pulmonary Embolism Present on Admission: No
[2020-06-04] MEDS ORDERED: PRAMIPEXOLE 0.25 MG TABLET PO SCH (21:00)
[2020-06-04] MEDS ORDERED: ATORVASTATIN 10 MG TABLET PO SCH (21:00)
[2020-06-04] MEDS ORDERED: INSULIN GLARGINE, HUMAN 1 UNIT/0.01 ML SQ SCH (21:00)
[2020-06-04] MEDS ORDERED: SENNOSIDES/DOCUSATE SODIUM 1 TAB TABLET PO SCH (21:00)
[2020-06-04] MEDS ORDERED: TAMSULOSIN 0.4 MG CAPSULE PO SCH (21:00)
[2020-06-04] MEDS: 0.9 % SODIUM CHLORIDE 1,000 ML IV SCH (21:05)
[2020-06-05] MEDS: 0.9 % SODIUM CHLORIDE 10 ML SYRINGE IV SCH ×3 (05:44→21:04)
[2020-06-05] MEDS: PIPERACILLIN SODIUM/TAZOBACTAM 3.375 GM in DEXTROSE 5% IN WATER 50 ML IV SCH ×4 (05:44→23:27)
[2020-06-05 06:15] LABS: Hematocrit 40.7 % (34.1-44.9); Hemoglobin 12.7 g/dL (11.2-15.7); Mean Corpuscular HGB Conc 31.2 g/dL (31.0-36.0); Mean Platelet Volume 11.2 fL (7.4-10.4); Platelet Count 104 K/mcL (140-440); RBC 4.07 M/mcL (3.59-5.38); Red Cell Distribution Width 14.1 % (11.5-14.5); WBC 10.5 K/mcL (4.50-11.00)
[2020-06-05 06:39] LABS: ALT/SGPT 14 U/l (0-40); AST/SGOT 20 U/l (0-37); Albumin 2.6 gm/dL (3.2-5.2); Albumin/Globulin Ratio 0.9 (1.0-2.3); Alkaline Phosphatase 62 U/L (39-117); Bilirubin,Direct 0.2 mg/dL (0.0-0.3); Bilirubin,Total 0.6 mg/dL (0.0-1.0); Blood Urea Nitrogen 22 mg/dl (8-23); Calcium 8.2 mg/dl (8.6-10.4); Chloride 98 mmol/L (96-108); Glucose 167 mg/dL (70-105); Lactate Dehydrogenase 215 U/L (94-250); Phosphorous 3.2 mg/dL (2.7-4.5); Triglycerides 109 mg/dl (<150); Uric Acid 2.6 mg/dL (2.5-8.0)
[2020-06-05 06:41] LABS: Carbon Dioxide 26 mmol/L (22-30); Glomerular Filtration Rate 37
[2020-06-05] MEDS ORDERED: FUROSEMIDE 40 MG/4 ML VIAL IV ONE (07:39)
[2020-06-05 07:47] LABS: Band Neutrophils % 3 % (0-10); Lymphocytes % 5 % (15-49); Macrocytosis 1+ (NONE SEEN); Monocytes % (Manual) 3 % (1-12); Platelet Estimate DECREASED (NORMAL); RBC Morphology ABNORM (NORMAL); Segmented Neutrophils % 89 % (38-78)
[2020-06-05] MEDS: INSULIN LISPRO 1 UNIT/0.01 ML UNIT SQ SCH ×4 (08:04→21:30)
[2020-06-05] MEDS: POTASSIUM CHLORIDE 10 MEQ TABLET PO SCH ×3 (08:05→21:01)
[2020-06-05] MEDS: sitaGLIPtin 50 MG TABLET PO SCH (08:06)
[2020-06-05] MEDS: FUROSEMIDE 40 MG TABLET PO SCH (08:06)
[2020-06-05] MEDS: DOCUSATE SODIUM 100 MG CAPSULE PO SCH ×2 (08:06→20:52)
[2020-06-05] MEDS: MULTIVIT,THER IRON,CA,FA & MIN 1 TABLET PO SCH (08:06)
[2020-06-05] MEDS: HEPARIN 5,000 UNIT/ML VIAL SQ SCH ×2 (08:06→20:53)
[2020-06-05] MEDS: METOPROLOL SUCCINATE 25 MG TAB.XL.24H PO SCH (08:07)
[2020-06-05] MEDS: FLUTICASONE PROPIONATE SPRAY.NAS NS SCH (08:07)
--- NOTE | 2020-06-05 09:12 | XRay Report ---
HISTORY: Fever, weakness, UTI FINDINGS: There is a moderate size consolidating infiltrate posteriorly and medially in the left lower lobe and milder consolidation medially in the right lung base. These have enlarged since the prior chest x-ray done on 06/03/20. There may be a tiny left-sided pleural effusion. The heart is mildly enlarged. The aorta is tortuous. IMPRESSION: Worsening bibasilar infiltrates, left worse right. This could be a combination of atelectasis and pneumonia Stable cardiomegaly, without congestive heart failure Interpreted and Authenticated by: José Miguel Jama 06/05/20
[2020-06-05] MEDS ORDERED: guaiFENesin/CODEINE 10 ML UDC PO PRN (09:19)
[2020-06-05] MEDS ORDERED: ACETAMINOPHEN 325 MG TABLET PO PRN (09:19)
[2020-06-05] MEDS ORDERED: ONDANSETRON 4 MG/2 ML VIAL IV PRN (09:19)
[2020-06-05] MEDS ORDERED: VANCOMYCIN PER PHARMACY IV SCH (09:19)
[2020-06-05] MEDS ORDERED: METHOCARBAMOL 500 MG TABLET PO PRN (09:19)
[2020-06-05] MEDS ORDERED: POTASSIUM CHLORIDE 20 MEQ PACKET PO PRN (09:19)
[2020-06-05] MEDS ORDERED: ACETAMINOPHEN 650 MG/65 ML BOTTLE IV PRN (09:19)
[2020-06-05] MEDS ORDERED: BISACODYL 10 MG SUPP.RECT PR PRN (09:19)
[2020-06-05] MEDS ORDERED: ONDANSETRON 4 MG ODT TABLET SL PRN (09:19)
[2020-06-05] MEDS ORDERED: DEXTROSE 31 GM ORAL.SUSP PO PRN (09:19)
[2020-06-05] MEDS ORDERED: POLYETHYLENE GLYCOL 3350 17 GM PACKET PO PRN (09:19)
[2020-06-05] MEDS ORDERED: DEXTROSE 50% 50 ML VIAL IV PRN (09:19)
[2020-06-05] MEDS ORDERED: MAGNESIUM SULFATE 2 GM/50 ML BAG IV PRN (09:19)
--- NOTE | 2020-06-05 09:30 | Internal Med Progress Note ---
SUBJECTIVE Subjective Patient information: Note initiated : 06/05/20 at 9:26 am Service Date, if different from initiated Date: [] Patient: Shakira Hou a 84 y/o F admitted on 06/03/20 for dizzines, weakness, UTI, fever. Chief Complaint: Ms. Hou is a 84 year old F resident of assisted living who presents to the ER with 2 days onset of worsening weakness, dizziness fever and shortness of breath. She was undergoing treatment on ciprofloxacin for UTI. However her symptoms have continued to progress. She also noticed right lower extremity redness and swelling following a spider bite 3 days ago which is now extremely tender to touch and while weightbearing. Initial work-up in the ER was consistent with severe sepsis with a white count of 17,000. She was in respiratory failure requiring 6 L oxygen/bilateral lower lobe pneumonia on CT and pyuria. Patient was promptly started on antibiotics after cultures were drawn. Hospitalist service was consulted. At the time of evaluation patient is alert and oriented. She was able to answer most questions. She is significantly short of breath requiring 6 L oxygen. She endorses to history as above. Denies chest pain, headache, photophobia 06/04-much improved dizziness and weakness however remains on 6 L oxygen. White count improving. Lower extremity redness and swelling much improved, more lucid alert. No overnight telemetry events. Cultures negative so far. 06/0512-[id number] bacteremia. Echocardiogram to rule out insect endocarditis. Source likely bilateral pneumonia. Hypotensive systolics in 70s today. Transfer to ICU start vasopressors. Critically ill. [place] 2 score 14. On 6 L oxygen. Persistent hypoxia. Patient lethargic and lightheaded indicating endorgan dysfunction. Constitutional Vitals: Vital Signs Temp Pulse Resp BP Pulse Ox 97.8 F 83 16 78/53 94 06/05/20 08:00 06/05/20 06:11 06/05/20 08:33 06/05/20 08:31 06/05/20 08:00 Period Temp Pulse Resp BP Sys/Glez Pulse Ox Last 24 Hr 97.8 F-100.7 F 25-91 14-25 66-146/47-101 79-99 Intake and Output 06/04/20 06/05/20 06/05/20 21:59 05:59 13:59 Intake Total 1530 265 50 Output Total 1150 200 Balance 380 265 -150 Weight 69.536 kg Lethargic, anxious Labored breathing on 6 L oxygen Systolic 70s No lymphedema Improved lower extremity redness Intake & Output: Intake & Output 06/04/20 06/05/20 06/05/20 21:59 05:59 13:59 Intake Total 1530 265 50 Output Total 1150 200 Balance 380 265 -150 Weight 69.536 kg Intake: IV 1050 115 50 Sodium Chloride 0.9% 1,000 ml @ 1000 50 mls/hr IV .Q20H [facility] Rx#: [id number] Zosyn 3.375 gm In Dextrose 5% 50 50 50 in Water 50 ml @ 100 mls/hr IV Q6H [facility] Rx#:[id number] Oral 480 150 Output: Void Amount 1150 200 Other: Meal Dinner Percent of Meal Consumed 75% Urine Appearance Clear Clear Clear Urine Color Bright Yellow Bright Yellow Dark Yellow Urine Odor Normal Normal Foul Stool Size Moderate Stool Color Brown Stool Consistency Formed # Bowel Movements 1 OBJ DATA Labs CBC & Chem 7: 06/05/20 05:05 06/05/20 05:05 Labs: Abnormal Lab Results 06/05/20 06/05/20 06/04/20 05:05 05:05 05:35 WBC MCV MCHC Plt Count 104 L MPV 11.2 H Seg Neutrophils % 89 H Lymphocytes % 5 L RBC Morphology Abnorm A Macrocytosis 1+ A Sodium 130 L Chloride Carbon Dioxide 19 L Creatinine 1.3 H Glucose 167 H 160 H Calcium 8.2 L 8.5 L Total Bilirubin 1.3 H Lactate Dehydrogenase 360 H Total Protein 5.6 L Albumin 2.6 L 2.8 L Globulin Albumin/Globulin Ratio 0.9 L 0.8 L Urine Protein Urine Glucose (UA) Urine RBC 06/04/20 06/03/20 06/03/20 05:35 23:35 19:30 WBC 16.4 H 17.1 H MCV 101.9 H MCHC 30.5 L Plt Count 104 L 110 L MPV 10.7 H 11.1 H Seg Neutrophils % 88 H Lymphocytes % 7 L 10 L RBC Morphology Abnorm A Macrocytosis 1+ A Sodium Chloride Carbon Dioxide Creatinine Glucose Calcium Total Bilirubin Lactate Dehydrogenase Total Protein Albumin Globulin Albumin/Globulin Ratio Urine Protein 100 A Urine Glucose (UA) 50 A Urine RBC 2 H 08/08/20 18:35 WBC MCV MCHC Plt Count MPV Seg Neutrophils % Lymphocytes % RBC Morphology Macrocytosis Sodium Chloride 95 L Carbon Dioxide Creatinine Glucose 149 H Calcium Total Bilirubin 1.4 H Lactate Dehydrogenase Total Protein Albumin Globulin 3.8 H Albumin/Globulin Ratio Urine Protein Urine Glucose (UA) Urine RBC Meds: Medications Acetaminophen (Tylenol) 650 mg PO Q4-6HP PRN; Protocol PRN Reason: Per Pain Protocol/Fever > 101 Hydrocodone Bitart/Acetaminophen ([place] 5/325mg) 1 tab PO Q4-6HP PRN; Protocol PRN Reason: Pain Atorvastatin Calcium (Lipitor) 10 mg PO HS [facility] Bisacodyl (Dulcolax) 10 mg [place] Q2-3DAYS PRN PRN Reason: Constipation Dextrose (Dextrose 50%) 0 ml IV UD PRN PRN Reason: Hypoglycemia Diagnostic Test (Pha) (Accu-Chek) 1 each FS ACHS [facility] Docusate Sodium (Colace) 100 mg PO BID [facility] Fluticasone Propionate (Flonase) 1 spray NS DAILY [facility] Furosemide (Lasix) 40 mg PO QAM [facility] Glucose (Insta-Glucose) 15 gm PO PRN PRN PRN Reason: Hypoglycemia Guaifenesin/Codeine Phosphate (Robitussin Ac) 10 ml PO Q4HP PRN PRN Reason: Cough Heparin Sodium (Porcine) (Heparin) 5,000 unit SQ Q12 [facility] Sodium Chloride (Sodium Chloride 0.9%) 1,000 mls @ 50 mls/hr IV .Q20H [facility] Stop: 06/06/20 11:04 Acetaminophen (Ofirmev) 650 mg in 65 mls @ 130 mls/hr IV Q6HP PRN; Protocol PRN Reason: Per Pain Protocol/Fever > 101 Magnesium Sulfate (Magnesium Sulfate) 2 gm in 50 mls @ 50 mls/hr IV UD PRN PRN Reason: MG = or < 1.7 Piperacillin Sod/Tazobactam (Sod 3.375 gm/ Dextrose) 50 mls @ 100 mls/hr IV Q6H [facility]; Protocol Vancomycin HCl 1,000 mg/ (Sodium Chloride) 250 mls @ 250 mls/hr IV DAILY [facility] Norepinephrine Bitartrate 8 mg (/ Sodium Chloride) 250 mls @ 18.75 mls/hr IV Q14H PRN; Protocol PRN Reason: MAP<65 Sodium Chloride (Sodium Chloride 0.9%) 250 mls @ 20 mls/hr IV .[id number] [facility] Insulin Glargine (Lantus) 11 unit SQ QPM [facility] Insulin Human Lispro (Humalog) 0 unit SQ ACHS [facility]; Protocol Iron Carb/Multivit/Casket Coverer/Folic Acid (Multivitamin W/Minerals) 1 tab PO DAILY [facility] Melatonin (Melatonin 3mg Tablet) 3 mg PO HSP PRN PRN Reason: Insomnia Methocarbamol (Robaxin) 500 mg PO BIDP PRN PRN Reason: muscle spasm Ondansetron HCl (Zofran Odt) 4 mg SL Q4-6HP PRN; Protocol PRN Reason: Nausea And Vomiting Ondansetron HCl (Zofran) 4 mg IV Q4-6HP PRN; Protocol PRN Reason: Nausea And Vomiting Polyethylene Glycol (Miralax) 17 gm PO DAILYP PRN PRN Reason: Constipation Potassium Chloride (Kdur) 10 meq PO BIDCC [facility] Potassium Chloride (Klor-Con) 40 meq PO DAILYP PRN PRN Reason: K+ < 3.5 Pramipexole Dihydrochloride (Mirapex) 0.75 mg PO HS [facility] Senna/Docusate Sodium (Senna Plus Tablet) 1 tab PO HS [facility] Sitagliptin Phosphate (Januvia) 50 mg PO DAILY [facility] Sodium Chloride (Saline Flush) 10 ml IV Q8 [facility] Tamsulosin HCl (Flomax) 0.4 mg PO HS [facility] Vancomycin HCl (Vancomycin Per Pharmacy) 1 order IV UD [facility]; Protocol A/P Narrative A/P Narrative: * Septic shock secondary to pneumonia/lower extremity cellulitis. GPC bacteremia. Start vasopressors/antibiotics. Surveillance cultures. Venous lactate * GPC bacteremia-continue surveillance cultures. ID consult. Echocardiogram rule out endocarditis. Likely source lower extremity cellulitis versus pneumonia * Hypoxic resp failure secondary to bilateral lower lobe pneumonia. On 6 L oxygen. * B/L LL PNA- continue broad antibiotic coverage/pulmonary toilet * Right LE cellulitis-clinically improving on antibiotic coverage/limb elevation * Complicated UTI-improving on antibiotics * History of DM type II continue basal prandial insulin * History of hypertension -continue holding antihypertensives until systolics/sepsis improves * Restless leg syndrome continue pramipexole * Hyperlipidemia on statin * Lymphedema -hold torsemide * Chronic pain on hydrocodone * Full code * Prophylaxis Heparin PLAN * Transfer to ICU * Vasopressors/broad antibiotics/crystalloids/l actate/echocardiogram/surveillance cultures * Supplemental oxygen * Interval chest imaging * Pre-existing medical condition management as above * PT OT/nutrition support Critical care time spent in excess of 45 minutes Time Spent With Patient Time: Total time spent is greater than 50% in coordination of care (as documented) at patient's floor/unit and/or counseling patient: QUALITY Stroke Symptom Onset Unknown: No VTE Deep Vein Thrombosis/Pulmonary Embolism Present on Admission: No
[2020-06-05] MEDS: NOREPINEPHRINE BITARTRATE 8 MG in 0.9 % SODIUM CHLORIDE 242 ML IV SCH (10:18)
[2020-06-05] MEDS: VANCOMYCIN 1,500 MG in 0.9 % SODIUM CHLORIDE 500 ML IV SCH (10:19)
[2020-06-05] MEDS: 0.9 % SODIUM CHLORIDE 250 ML IV SCH ×2 (10:19→20:56)
[2020-06-05] MEDS: VANCOMYCIN 1,000 MG in 0.9 % SODIUM CHLORIDE 250 ML IV SCH (10:38)
--- NOTE | 2020-06-05 14:15 | Internal Med Progress Note ---
SUBJECTIVE Subjective Patient information: Note initiated : 06/05/20 at 2:06 pm Service Date, if different from initiated Date: [] Patient: Shakira Hou a 84 y/o F admitted on 06/03/20 for dizzines, weakness, UTI, fever. Chief Complaint: [] Interval history: Ms. Hou is a 84 year old F resident of assisted living who presents to the ER with 2 days onset of worsening weakness, dizziness fever and shortness of breath. She was undergoing treatment on ciprofloxacin for UTI. However her symptoms have continued to progress. She also noticed right lower extremity redness and swelling following a spider bite 3 days ago which is now extremely tender to touch and while weightbearing. Initial work-up in the ER was consistent with severe sepsis with a white count of 17,000. She was in respiratory failure requiring 6 L oxygen/bilateral lower lobe pneumonia on CT and pyuria. Patient was promptly started on antibiotics after cultures were drawn. Hospitalist service was consulted. At the time of evaluation patient is alert and oriented. She was able to answer most questions. She is significantly short of breath requiring 6 L oxygen. She endorses to history as above. Denies chest pain, headache, photophobia 06/04-much improved dizziness and weakness however remains on 6 L oxygen. White count improving. Lower extremity redness and swelling much improved, more lucid alert. No overnight telemetry events. Cultures negative so far. [id number] bacteremia. Echocardiogram to rule out insect endocarditis. Source likely bilateral pneumonia. Hypotensive systolics in 70s today. Transfer to ICU start vasopressors. Critically ill. [place] 2 score 14. On 6 L oxygen. Persistent hypoxia. Patient lethargic and lightheaded indicating endorgan dysfunction. 06/06 Constitutional Vitals: Vital Signs Temp Pulse Resp BP Pulse Ox 97.8 F 73 11 L 97/57 100 06/05/20 08:00 06/05/20 11:01 06/05/20 12:01 06/05/20 12:01 06/05/20 11:01 Period Temp Pulse Resp BP Sys/Glez Pulse Ox Last 24 Hr 97.8 F-100.7 F 25-91 11-25 66-146/47-101 79-100 Intake and Output 06/05/20 06/05/20 06/05/20 05:59 13:59 21:59 Intake Total 265 78 Output Total 350 Balance 265 -272 Weight 69.536 kg Patient Weight 06/06/20 05:59 Weight 69.536 kg Intake & Output: Intake & Output 06/05/20 06/05/20 06/05/20 05:59 13:59 21:59 Intake Total 265 78 Output Total 350 Balance 265 -272 Weight 69.536 kg Intake: IV 115 78 Levophed 8 mg In Sodium 28 Chloride 0.9% 242 ml @ 10 MCG/ MIN 18.75 mls/hr IV Q14H [facility] Rx #:[id number] Zosyn 3.375 gm In Dextrose 5% 50 50 in Water 50 ml @ 100 mls/hr IV Q6H [facility] Rx#:[id number] Oral 150 Output: Void Amount 350 Other: Urine Appearance Clear Clear Urine Color Bright Yellow Bright Yellow Urine Odor Normal Normal Exam: General: , No acute Distress Eyes/N/T: EOMI, Head/Neck: neck supple, CV: RRR, No murmurs, Pulm: labored Abd: soft, nontender, +BS x4 Ext: no clubbing/cyanosis/edema, LE erythema improved Neuro: Alert, no focal deficits, moves all extremities, Skin: warm/dry OBJ DATA Labs CBC & Chem 7: 06/05/20 05:05 06/05/20 05:05 Labs: Abnormal Lab Results 06/05/20 06/05/20 06/04/20 05:05 05:05 05:35 WBC MCV MCHC Plt Count 104 L MPV 11.2 H Seg Neutrophils % 89 H Lymphocytes % 5 L RBC Morphology Abnorm A Macrocytosis 1+ A Sodium 130 L Chloride Carbon Dioxide 19 L Creatinine 1.3 H Glucose 167 H 160 H Calcium 8.2 L 8.5 L Total Bilirubin 1.3 H Lactate Dehydrogenase 360 H Total Protein 5.6 L Albumin 2.6 L 2.8 L Globulin Albumin/Globulin Ratio 0.9 L 0.8 L Urine Protein Urine Glucose (UA) Urine RBC 06/04/20 06/03/20 06/03/20 05:35 23:35 19:30 WBC 16.4 H 17.1 H MCV 101.9 H MCHC 30.5 L Plt Count 104 L 110 L MPV 10.7 H 11.1 H Seg Neutrophils % 88 H Lymphocytes % 7 L 10 L RBC Morphology Abnorm A Macrocytosis 1+ A Sodium Chloride Carbon Dioxide Creatinine Glucose Calcium Total Bilirubin Lactate Dehydrogenase Total Protein Albumin Globulin Albumin/Globulin Ratio Urine Protein 100 A Urine Glucose (UA) 50 A Urine RBC 2 H 06/03/20 18:35 WBC MCV MCHC Plt Count MPV Seg Neutrophils % Lymphocytes % RBC Morphology Macrocytosis Sodium Chloride 95 L Carbon Dioxide Creatinine Glucose 149 H Calcium Total Bilirubin 1.4 H Lactate Dehydrogenase Total Protein Albumin Globulin 3.8 H Albumin/Globulin Ratio Urine Protein Urine Glucose (UA) Urine RBC Meds: Medications Acetaminophen (Tylenol) 650 mg PO Q4-6HP PRN; Protocol PRN Reason: Per Pain Protocol/Fever > 101 Hydrocodone Bitart/Acetaminophen ([place] 5/325mg) 1 tab PO Q4-6HP PRN; Protocol PRN Reason: Pain Atorvastatin Calcium (Lipitor) 10 mg PO HS [facility] Bisacodyl (Dulcolax) 10 mg [place] Q2-3DAYS PRN PRN Reason: Constipation Dextrose (Dextrose 50%) 0 ml IV UD PRN PRN Reason: Hypoglycemia Diagnostic Test (Pha) (Accu-Chek) 1 each FS ACHS [facility] Docusate Sodium (Colace) 100 mg PO BID [facility] Fluticasone Propionate (Flonase) 1 spray NS DAILY [facility] Furosemide (Lasix) 40 mg PO QAM [facility] Glucose (Insta-Glucose) 15 gm PO PRN PRN PRN Reason: Hypoglycemia Guaifenesin/Codeine Phosphate (Robitussin Ac) 10 ml PO Q4HP PRN PRN Reason: Cough Heparin Sodium (Porcine) (Heparin) 5,000 unit SQ Q12 [facility] Sodium Chloride (Sodium Chloride 0.9%) 1,000 mls @ 50 mls/hr IV .Q20H [facility] Stop: 06/06/20 11:04 Acetaminophen (Ofirmev) 650 mg in 65 mls @ 130 mls/hr IV Q6HP PRN; Protocol PRN Reason: Per Pain Protocol/Fever > 101 Magnesium Sulfate (Magnesium Sulfate) 2 gm in 50 mls @ 50 mls/hr IV UD PRN PRN Reason: MG = or < 1.7 Piperacillin Sod/Tazobactam (Sod 3.375 gm/ Dextrose) 50 mls @ 100 mls/hr IV Q6H [facility]; Protocol Norepinephrine Bitartrate 8 mg (/ Sodium Chloride) 250 mls @ 18.75 mls/hr IV Q 14H [facility]; Protocol Last Titration: 06/05/20 11:49 Dose: 5 mcg/min, 9.375 mls/hr Documented by: Sodium Chloride (Sodium Chloride 0.9%) 250 mls @ 20 mls/hr IV .[id number] [facility] Last Admin: 06/05/20 10:19 Dose: 20 mls/hr Documented by: Vancomycin HCl 1,500 mg/ (Sodium Chloride) 500 mls @ 333.3 mls/hr IV DAILY [facility] Last Admin: 06/05/20 10:19 Dose: 200 mls/hr Documented by: Insulin Glargine (Lantus) 11 unit SQ QPM [facility] Insulin Human Lispro (Humalog) 0 unit SQ ACHS [facility]; Protocol Iron Carb/Multivit/Complaint Evaluation Officer/Folic Acid (Multivitamin W/Minerals) 1 tab PO DAILY [facility] Melatonin (Melatonin 3mg Tablet) 3 mg PO HSP PRN PRN Reason: Insomnia Methocarbamol (Robaxin) 500 mg PO BIDP PRN PRN Reason: muscle spasm Ondansetron HCl (Zofran Odt) 4 mg SL Q4-6HP PRN; Protocol PRN Reason: Nausea And Vomiting Ondansetron HCl (Zofran) 4 mg IV Q4-6HP PRN; Protocol PRN Reason: Nausea And Vomiting Polyethylene Glycol (Miralax) 17 gm PO DAILYP PRN PRN Reason: Constipation Potassium Chloride (Kdur) 10 meq PO BIDCC [facility] Potassium Chloride (Klor-Con) 40 meq PO DAILYP PRN PRN Reason: K+ < 3.5 Pramipexole Dihydrochloride (Mirapex) 0.75 mg PO HS [facility] Senna/Docusate Sodium (Senna Plus Tablet) 1 tab PO HS [facility] Sitagliptin Phosphate (Januvia) 50 mg PO DAILY [facility] Sodium Chloride (Saline Flush) 10 ml IV Q8 [facility] Tamsulosin HCl (Flomax) 0.4 mg PO HS [facility] Vancomycin HCl (Vancomycin Per Pharmacy) 1 order IV UD [facility]; Protocol A/P Narrative A/P Narrative: A: *Septic shock: 2/2 PNA/RLE cellulitis/Bacteremia -on vasopressors *GPC bacteremia: Likely source lower extremity cellulitis versus pneumonia *Acute Hypoxic resp failure: 2/2 b/l PNA -On 6 L oxygen. *B/L PNA: *Right LE cellulitis-clinically improving on antibiotic coverage/limb elevation *Complicated UTI: *CKD III: *DM type II: *HTN: *Lymphedema: hold torsemide *Chronic pain: on hydrocodone PLAN: -wean vasopresors, IVF's -pending surveillance cxs -pending echo -ID following -Broad Abx -pending COVID/RVP -Supplemental oxygen, IS/Acapella -f/u CXR -continue holding antihypertensives until systolics/sepsis improves - -basal and SSI -PT OT/nutrition support -ppx: Heparin full Code Time Spent With Patient Time: Total time spent is greater than 50% in coordination of care (as documented) at patient's floor/unit and/or counseling patient: QUALITY Stroke Symptom Onset Unknown: No VTE Deep Vein Thrombosis/Pulmonary Embolism Present on Admission: No
[2020-06-05] MEDS ORDERED: ALBUMIN HUMAN 12.5 GM/50 ML BAG IV ONE (14:18)
[2020-06-05] MEDS: ATORVASTATIN 10 MG TABLET PO SCH (20:52)
[2020-06-05] MEDS: INSULIN GLARGINE, HUMAN 1 UNIT/0.01 ML SQ SCH (20:53)
[2020-06-05] MEDS: SENNOSIDES/DOCUSATE SODIUM 1 TAB TABLET PO SCH (20:53)
[2020-06-05] MEDS: TAMSULOSIN 0.4 MG CAPSULE PO SCH (20:53)
[2020-06-05] MEDS: MELATONIN 3 MG TABLET PO PRN (20:53)
[2020-06-05] MEDS: 0.9 % SODIUM CHLORIDE 1,000 ML IV SCH (20:54)
[2020-06-05] MEDS: PRAMIPEXOLE 0.25 MG TABLET PO SCH (21:01)
[2020-06-06] MEDS: NOREPINEPHRINE BITARTRATE 8 MG in 0.9 % SODIUM CHLORIDE 242 ML IV SCH ×2 (03:49→18:08)
[2020-06-06] MEDS: HYDROcodone/APAP 5/325MG TABLET PO PRN ×2 (04:56→20:12)
[2020-06-06] MEDS: 0.9 % SODIUM CHLORIDE 1,000 ML IV SCH (05:16)
[2020-06-06] MEDS: PIPERACILLIN SODIUM/TAZOBACTAM 3.375 GM in DEXTROSE 5% IN WATER 50 ML IV SCH ×3 (05:46→17:43)
[2020-06-06] MEDS: 0.9 % SODIUM CHLORIDE 10 ML SYRINGE IV SCH ×3 (05:46→20:14)
[2020-06-06 06:49] LABS: Hematocrit 38.7 % (34.1-44.9); Hemoglobin 12.1 g/dL (11.2-15.7); Mean Cell Volume 98.5 fL (80.0-100.0); Mean Corpuscular HGB Conc 31.3 g/dL (31.0-36.0); Mean Platelet Volume 10.9 fL (7.4-10.4); Platelet Count 110 K/mcL (140-440); RBC 3.93 M/mcL (3.59-5.38); Red Cell Distribution Width 13.6 % (11.5-14.5); WBC 6.5 K/mcL (4.50-11.00)
[2020-06-06 07:13] LABS: ALT/SGPT 12 U/l (0-40); AST/SGOT 14 U/l (0-37); Albumin 2.8 gm/dL (3.2-5.2); Alkaline Phosphatase 60 U/L (39-117); Bilirubin,Total 0.5 mg/dL (0.0-1.0); Blood Urea Nitrogen 19 mg/dl (8-23); Calcium 8.8 mg/dl (8.6-10.4); Carbon Dioxide 27 mmol/L (22-30); Chloride 97 mmol/L (96-108); Globulin 2.8 gm/dL (2.2-3.7); Glomerular Filtration Rate 41; Glucose 135 mg/dL (70-105); Lactate Dehydrogenase 209 U/L (94-250); Triglycerides 144 mg/dl (<150); Uric Acid 2.8 mg/dL (2.5-8.0)
[2020-06-06 07:17] LABS: Bilirubin,Direct < 0.2 mg/dL (0.0-0.3); Phosphorous 2.3 mg/dL (2.7-4.5)
--- NOTE | 2020-06-06 07:25 | Internal Med Progress Note ---
SUBJECTIVE Subjective Patient information: Note initiated : 06/06/20 at 7:23 am Service Date, if different from initiated Date: [] Patient: Shakira Hou a 84 y/o F admitted on 06/03/20 for dizzines, weakness, UTI, fever. Chief Complaint: [] Interval history: Ms. Hou is a 84 year old F resident of assisted living who presents to the ER with 2 days onset of worsening weakness, dizziness fever and shortness of breath. She was undergoing treatment on ciprofloxacin for UTI. However her symptoms have continued to progress. She also noticed right lower extremity redness and swelling following a spider bite 3 days ago which is now extremely tender to touch and while weightbearing. Initial work-up in the ER was consistent with severe sepsis with a white count of 17,000. She was in respiratory failure requiring 6 L oxygen/bilateral lower lobe pneumonia on CT and pyuria. Patient was promptly started on antibiotics after cultures were drawn. Hospitalist service was consulted. At the time of evaluation patient is alert and oriented. She was able to answer most questions. She is significantly short of breath requiring 6 L oxygen. She endorses to history as above. Denies chest pain, headache, photophobia 06/04-much improved dizziness and weakness however remains on 6 L oxygen. White count improving. Lower extremity redness and swelling much improved, more lucid alert. No overnight telemetry events. Cultures negative so far. [id number] bacteremia. Echocardiogram to rule out infective endocarditis. Source likely bilateral pneumonia. Hypotensive systolics in 70s today. Transfer to ICU start vasopressors. Critically ill. [place] 2 score 14. On 6 L oxygen. Persistent hypoxia. Patient lethargic and lightheaded indicating endorgan dysfunction. 06/06 Feeling a little better today. Denies shortness of breath at rest. Occasional cough. Off vasopressors. Waiting blood culture results. Decreased oxygen need now on 2 L. Patient reports swallowing difficulties, will get speech therapy involved Review of Systems: denies headache/fever/chills/nausea/vomiting/chest or abdominal pain/diarrhea. Otherwise see above. Constitutional Vitals: Vital Signs Temp Pulse Resp BP Pulse Ox 98.2 F 82 15 107/63 95 06/06/20 04:01 06/06/20 06:01 06/06/20 06:01 06/06/20 06:01 06/06/20 06:01 Period Temp Pulse Resp BP Sys/Glez Pulse Ox Last 24 Hr 97.7 F-99 F 64-91 11-28 66-159/40-85 87-100 Intake and Output 06/05/20 06/06/20 06/06/20 21:59 05:59 13:59 Intake Total 1618 50 50 Output Total 1650 625 Balance -32 -575 50 Weight 69.031 kg Intake & Output: Intake & Output 06/05/20 06/06/20 06/06/20 21:59 05:59 13:59 Intake Total 1618 50 50 Output Total 1650 625 Balance -32 -575 50 Weight 69.031 kg Intake: IV 1378 50 50 Sodium Chloride 0.9% 1,000 ml @ 1000 50 mls/hr IV .Q20H [facility] Rx#: [id number] Sodium Chloride 0.9% 250 ml @ 169 20 mls/hr IV .[id number] [facility] Rx#: [id number] Levophed 8 mg In Sodium 59 Chloride 0.9% 242 ml @ 10 MCG/ MIN 18.75 mls/hr IV Q14H [facility] Rx #:[id number] Zosyn 3.375 gm In Dextrose 5% 100 50 50 in Water 50 ml @ 100 mls/hr IV Q6H [facility] Rx#:[id number] Oral 240 Output: Urine Catheter Amount 1250 625 Void Amount 400 Other: Meal Dinner Nourishment/Supplement Percent of Meal Consumed 75% 25% Feeding Ability Assist with Tray Set Up Assist with Tray Set Up Nourishment/Supplement name beck Urine Appearance Clear Cloudy Uretheral (Grajeda) Clear Clear Urine Color Pale Bright Yellow Uretheral (Grajeda) Bright Yellow Bright Yellow Urine Odor Normal Exam: General: alert and awake, No acute Distress Eyes/N/T: EOMI, Head/Neck: neck supple, CV: RRR, No murmurs, Pulm: diminished R>L, mild rhonchi, no wheezing Abd: soft, nontender, +BS x4 Ext: no clubbing/cyanosis/edema, LE erythema improved Neuro: Alert, no focal deficits, moves all extremities, Skin: warm/dry OBJ DATA Labs CBC & Chem 7: 06/06/20 04:57 06/06/20 04:57 Labs: Abnormal Lab Results 06/06/20 06/06/20 06/05/20 04:57 04:57 05:05 WBC MCV MCHC Plt Count 110 L MPV 10.9 H Seg Neutrophils % Lymphocytes % RBC Morphology Macrocytosis Sodium Chloride Carbon Dioxide Creatinine 1.2 H 1.3 H Glucose 135 H 167 H Calcium 8.2 L Phosphorus 2.3 L Total Bilirubin Lactate Dehydrogenase Total Protein 5.6 L 5.6 L Albumin 2.8 L 2.6 L Globulin Albumin/Globulin Ratio 0.9 L Urine Protein Urine Glucose (UA) Urine RBC 06/05/20 06/04/20 06/04/20 05:05 05:35 05:35 WBC 16.4 H MCV 101.9 H MCHC 30.5 L Plt Count 104 L 104 L MPV 11.2 H 10.7 H Seg Neutrophils % 89 H 88 H Lymphocytes % 5 L 7 L RBC Morphology Abnorm A Abnorm A Macrocytosis 1+ A 1+ A Sodium 130 L Chloride Carbon Dioxide 19 L Creatinine Glucose 160 H Calcium 8.5 L Phosphorus Total Bilirubin 1.3 H Lactate Dehydrogenase 360 H Total Protein Albumin 2.8 L Globulin Albumin/Globulin Ratio 0.8 L Urine Protein Urine Glucose (UA) Urine RBC 06/03/20 06/03/20 06/03/20 23:35 19:30 18:35 WBC 17.1 H MCV MCHC Plt Count 110 L MPV 11.1 H Seg Neutrophils % Lymphocytes % 10 L RBC Morphology Macrocytosis Sodium Chloride 95 L Carbon Dioxide Creatinine Glucose 149 H Calcium Phosphorus Total Bilirubin 1.4 H Lactate Dehydrogenase Total Protein Albumin Globulin 3.8 H Albumin/Globulin Ratio Urine Protein 100 A Urine Glucose (UA) 50 A Urine RBC 2 H Meds: Medications Acetaminophen (Tylenol) 650 mg PO Q4-6HP PRN; Protocol PRN Reason: Per Pain Protocol/Fever > 101 Hydrocodone Bitart/Acetaminophen ([place] 5/325mg) 1 tab PO Q4-6HP PRN; Protocol PRN Reason: Pain Last Admin: 06/06/20 04:56 Dose: 1 tab Documented by: Atorvastatin Calcium (Lipitor) 10 mg PO HS [facility] Last Admin: 06/05/20 20:52 Dose: 10 mg Documented by: Bisacodyl (Dulcolax) 10 mg [place] Q2-3DAYS PRN PRN Reason: Constipation Dextrose (Dextrose 50%) 0 ml IV UD PRN PRN Reason: Hypoglycemia Diagnostic Test (Pha) (Accu-Chek) 1 each FS ACHS [facility] Last Admin: 06/05/20 21:21 Dose: 1 each Documented by: Docusate Sodium (Colace) 100 mg PO BID [facility] Last Admin: 06/05/20 20:52 Dose: 100 mg Documented by: Fluticasone Propionate (Flonase) 1 spray NS DAILY [facility] Furosemide (Lasix) 40 mg PO QAM [facility] Glucose (Insta-Glucose) 15 gm PO PRN PRN PRN Reason: Hypoglycemia Guaifenesin/Codeine Phosphate (Robitussin Ac) 10 ml PO Q4HP PRN PRN Reason: Cough Heparin Sodium (Porcine) (Heparin) 5,000 unit SQ Q12 [facility] Last Admin: 06/05/20 20:53 Dose: 5,000 unit Documented by: Sodium Chloride (Sodium Chloride 0.9%) 1,000 mls @ 50 mls/hr IV .Q20H [facility] Stop: 06/06/20 11:04 Last Admin: 06/06/20 05:16 Dose: Not Given Documented by: Acetaminophen (Ofirmev) 650 mg in 65 mls @ 130 mls/hr IV Q6HP PRN; Protocol PRN Reason: Per Pain Protocol/Fever > 101 Magnesium Sulfate (Magnesium Sulfate) 2 gm in 50 mls @ 50 mls/hr IV UD PRN PRN Reason: MG = or < 1.7 Piperacillin Sod/Tazobactam (Sod 3.375 gm/ Dextrose) 50 mls @ 100 mls/hr IV Q6H [facility]; Protocol Last Infusion: 06/06/20 06:26 Dose: Infused Documented by: Norepinephrine Bitartrate 8 mg (/ Sodium Chloride) 250 mls @ 18.75 mls/hr IV Q14H [facility]; Protocol Last Admin: 06/06/20 03:49 Dose: Not Given Documented by: Sodium Chloride (Sodium Chloride 0.9%) 250 mls @ 20 mls/hr IV .[id number] [facility] Last Admin: 06/05/20 20:56 Dose: Not Given Documented by: Vancomycin HCl 1,500 mg/ (Sodium Chloride) 500 mls @ 333.3 mls/hr IV DAILY [facility] Last Infusion: 06/05/20 12:50 Dose: Infused Documented by: Insulin Glargine (Lantus) 11 unit SQ QPM [facility] Last Admin: 06/05/20 20:53 Dose: 11 unit Documented by: Insulin Human Lispro (Humalog) 0 unit SQ [facility]; Protocol Last Admin: 06/05/20 21:30 Dose: 2 units Documented by: Iron Carb/Multivit/Woody/Folic Acid (Multivitamin W/Minerals) 1 tab PO DAILY [facility] Melatonin (Melatonin 3mg Tablet) 3 mg PO HSP PRN PRN Reason: Insomnia Last Admin: 06/05/20 20:53 Dose: 3 mg Documented by: Methocarbamol (Robaxin) 500 mg PO BIDP PRN PRN Reason: muscle spasm Ondansetron HCl (Zofran Odt) 4 mg SL Q4-6HP PRN; Protocol PRN Reason: Nausea And Vomiting Ondansetron HCl (Zofran) 4 mg IV Q4-6HP PRN; Protocol PRN Reason: Nausea And Vomiting Polyethylene Glycol (Miralax) 17 gm PO DAILYP PRN PRN Reason: Constipation [facility] Admin: 06/05/20 21:01 Dose: 10 meq Documented by: Potassium Chloride (Klor-Con) 40 meq PO DAILYP PRN PRN Reason: K+ < 3.5 Pramipexole Dihydrochloride (Mirapex) 0.75 mg PO [facility] Last Admin: 06/05/20 21:01 Dose: 0.75 mg Documented by: Senna/Docusate Sodium (Senna Plus Tablet) 1 tab PO [facility] Last Admin: 06/05/20 20:53 Dose: 1 tab Documented by: Sitagliptin Phosphate (Januvia) 50 mg PO DAILY [facility] Sodium Chloride (Saline Flush) 10 ml IV Q8 [facility] Last Admin: 06/06/20 05:46 Dose: 10 ml Documented by: Tamsulosin HCl (Flomax) 0.4 mg PO [facility] Last Admin: 06/05/20 20:53 Dose: 0.4 mg Documented by: Vancomycin HCl (Vancomycin Per Pharmacy) 1 order IV [facility]; Protocol A/P Narrative A/P Narrative: A: *Septic shock: 2/2 PNA/RLE cellulitis/?Bacteremia -off vasopressors *GPC bacteremia: Likely source lower extremity cellulitis versus pneumonia *Acute Hypoxic resp failure: 2/2 b/l PNA -now on 2L with sats mid 90's *B/L PNA, ?aspiration: pt reports swallowing difficulty -RVP negative *Right LE cellulitis: clinically improving on antibiotic coverage/limb elevation *Complicated UTI: *CKD III: *DM type II: *HTN: *Lymphedema: hold torsemide *Chronic pain: on hydrocodone PLAN: -pending surveillance cxs -pending echo -ID following -Broad Abx -pending COVID -Supplemental oxygen, IS/Acapella -f/u CXR -ST eval -restart ARB as BP allows -basal and SSI -PT OT/nutrition support -ppx: Heparin full Code Time Spent With Patient Time: Total time spent is greater than 50% in coordination of care (as documented) at patient's floor/unit and/or counseling patient: QUALITY Stroke Symptom Onset Unknown: No VTE Deep Vein Thrombosis/Pulmonary Embolism Present on Admission: No
[2020-06-06] MEDS: POTASSIUM CHLORIDE 10 MEQ TABLET PO SCH ×2 (07:41→17:44)
[2020-06-06 07:44] LABS: Band Neutrophils % 6 % (0-10); Basophils % (Manual) 1 % (0-2); Eosinophils % (Manual) 2 % (0-7); Lymphocytes % 16 % (15-49); Monocytes % (Manual) 2 % (1-12); Platelet Estimate DECREASED (NORMAL); RBC Morphology NORMAL (NORMAL); Segmented Neutrophils % 73 % (38-78)
[2020-06-06] MEDS: INSULIN LISPRO 1 UNIT/0.01 ML UNIT SQ SCH ×4 (08:12→20:38)
[2020-06-06] MEDS: MULTIVIT,THER IRON,CA,FA & MIN 1 TABLET PO SCH (08:19)
[2020-06-06] MEDS: FUROSEMIDE 40 MG TABLET PO SCH (08:19)
[2020-06-06] MEDS: HEPARIN 5,000 UNIT/ML VIAL SQ SCH ×2 (08:19→20:13)
[2020-06-06] MEDS: sitaGLIPtin 50 MG TABLET PO SCH (08:19)
[2020-06-06] MEDS: FLUTICASONE PROPIONATE SPRAY.NAS NS SCH (08:20)
[2020-06-06] MEDS: VANCOMYCIN 1,500 MG in 0.9 % SODIUM CHLORIDE 500 ML IV SCH (08:20)
[2020-06-06] MEDS: DOCUSATE SODIUM 100 MG CAPSULE PO SCH ×2 (08:20→20:13)
--- NOTE | 2020-06-06 08:49 | XRay Report ---
HISTORY: Follow-up pulmonary infiltrates FINDINGS: There are bilateral consolidating infiltrates, left worse right. Several air bronchograms are present in the left lower lobe. Small left-sided pleural effusion is present. The upper lung padilla are clear. The heart is mildly enlarged. There is no congestive heart failure. There has been no significant change since 06/05/20. IMPRESSION: Bibasilar pneumonia/atelectasis with no change Stable cardiomegaly without congestive heart failure Interpreted and Authenticated by: José Miguel Jama 06/06/20
[2020-06-06] MEDS ORDERED: VANCOMYCIN 1,000 MG in 0.9 % SODIUM CHLORIDE 250 ML IV SCH (09:00)
[2020-06-06] MEDS: 0.9 % SODIUM CHLORIDE 250 ML IV SCH ×2 (13:04→23:58)
[2020-06-06] MEDS ORDERED: NOREPINEPHRINE BITARTRATE 8 MG in 0.9 % SODIUM CHLORIDE 242 ML IV PRN (14:15)
[2020-06-06] MEDS: PRAMIPEXOLE 0.25 MG TABLET PO SCH (20:13)
[2020-06-06] MEDS: ATORVASTATIN 10 MG TABLET PO SCH (20:13)
[2020-06-06] MEDS: MELATONIN 3 MG TABLET PO PRN (20:13)
[2020-06-06] MEDS: SENNOSIDES/DOCUSATE SODIUM 1 TAB TABLET PO SCH (20:13)
[2020-06-06] MEDS: INSULIN GLARGINE, HUMAN 1 UNIT/0.01 ML SQ SCH (20:13)
[2020-06-06] MEDS: TAMSULOSIN 0.4 MG CAPSULE PO SCH (20:13)
[2020-06-07] MEDS: 0.9 % SODIUM CHLORIDE 10 ML SYRINGE IV SCH ×3 (05:43→20:48)
[2020-06-07] MEDS: PIPERACILLIN SODIUM/TAZOBACTAM 3.375 GM in DEXTROSE 5% IN WATER 50 ML IV SCH ×5 (05:43→23:55)
--- NOTE | 2020-06-07 07:27 | Internal Med Progress Note ---
SUBJECTIVE Subjective Patient information: Note initiated : 06/07/20 at 7:22 am Service Date, if different from initiated Date: [] Patient: Shakira Hou a 84 y/o F admitted on 06/03/20 for dizzines, weakness, UTI, fever. Chief Complaint: [] Interval history: Ms. Hou is a 84 year old F resident of assisted living who presents to the ER with 2 days onset of worsening weakness, dizziness fever and shortness of breath. She was undergoing treatment on ciprofloxacin for UTI. However her symptoms have continued to progress. She also noticed right lower extremity redness and swelling following a spider bite 3 days ago which is now extremely tender to touch and while weightbearing. Initial work-up in the ER was consistent with severe sepsis with a white count of 17,000. She was in respiratory failure requiring 6 L oxygen/bilateral lower lobe pneumonia on CT and pyuria. Patient was promptly started on antibiotics after cultures were drawn. Hospitalist service was consulted. At the time of evaluation patient is alert and oriented. She was able to answer most questions. She is significantly short of breath requiring 6 L oxygen. She endorses to history as above. Denies chest pain, headache, photophobia 06/04-much improved dizziness and weakness however remains on 6 L oxygen. White count improving. Lower extremity redness and swelling much improved, more lucid alert. No overnight telemetry events. Cultures negative so far. 06/0516-[id number] bacteremia. Echocardiogram to rule out infective endocarditis. Source likely bilateral pneumonia. Hypotensive systolics in 70s today. Transfer to ICU start vasopressors. Critically ill. [place] 2 score 14. On 6 L oxygen. Persistent hypoxia. Patient lethargic and lightheaded indicating endorgan dysfunction. 06/06 Feeling a little better today. Denies shortness of breath at rest. Occasional cough. Off vasopressors. Waiting blood culture results. Decreased oxygen need now on 2 L. Patient reports swallowing difficulties, will get speech therapy involved 06/07 COVID neg. occasional cough and mild dyspnea. Otherwise no complaints. Seen by speech and started on dysphagia diet. Oxygen requirement need fluctuates. Review of Systems: occasional COBB and nausea. denies fever/chills/vomiting/chest or abdominal pain/diarrhea. Otherwise see above. Constitutional Vitals: Vital Signs Temp Pulse Resp BP Pulse Ox 97.8 F 90 23 H 149/71 92 06/07/20 04:02 06/07/20 01:48 06/07/20 04:02 06/07/20 04:02 06/07/20 04:02 Period Temp Pulse Resp BP Sys/Glez Pulse Ox Last 24 Hr 97.2 F-98.7 F 64-94 15-30 92-186/50-100 90-100 Intake and Output 06/06/20 06/07/20 06/07/20 21:59 05:59 13:59 Intake Total 262 1710 Output Total 875 600 Balance -613 1110 Weight 70.562 kg Intake & Output: Intake & Output 06/06/20 06/07/20 06/07/20 21:59 05:59 13:59 Intake Total 262 1710 Output Total 875 600 Balance -613 1110 Weight 70.562 kg Intake: IV 42 1050 Sodium Chloride 0.9% 1,000 ml @ 1000 50 mls/hr IV .Q20H [facility] Rx#: [id number] Levophed 8 mg In Sodium 0 Chloride 0.9% 242 ml @ 10 MCG/ MIN 18.75 mls/hr IV Q14H [facility] Rx #:[id number] Zosyn 3.375 gm In Dextrose 5% 42 50 in Water 50 ml @ 100 mls/hr IV Q6H [facility] Rx#:[id number] Oral 220 660 Output: Urine Catheter Amount 875 600 Other: Urine Appearance Clear Cloudy Uretheral (Grajeda) Clear Clear Urine Color Bright Yellow Dark Yellow Uretheral (Grajeda) Bright Yellow Bright Yellow Urine Odor Normal Stool Size Moderate Large Stool Color Brown Brown Stool Consistency Formed Loose # Bowel Movements 1 1 Exam: General: alert and awake, No acute Distress Eyes/N/T: EOMI, Head/Neck: neck supple, CV: RRR, No murmurs, Pulm: diminished R>L, mild rhonchi, no wheezing, bronchial breath sounds Abd: soft, nontender, +BS x4 Ext: no clubbing/cyanosis, LE erythema improved, 1+ b/l LE edema Neuro: Alert, no focal deficits, moves all extremities, Skin: warm/dry OBJ DATA Labs CBC & Chem 7: 06/06/20 04:57 06/07/20 05:17 Labs: Abnormal Lab Results 06/06/20 06/06/20 06/05/20 04:57 04:57 05:05 Plt Count 110 L MPV 10.9 H Seg Neutrophils % Lymphocytes % RBC Morphology Macrocytosis Creatinine 1.2 H 1.3 H Glucose 135 H 167 H Calcium 8.2 L Phosphorus 2.3 L Total Protein 5.6 L 5.6 L Albumin 2.8 L 2.6 L Albumin/Globulin Ratio 0.9 L 06/05/20 06/04/20 05:05 05:35 Plt Count 104 L MPV 11.2 H Seg Neutrophils % 89 H 88 H Lymphocytes % 5 L 7 L RBC Morphology Abnorm A Abnorm A Macrocytosis 1+ A 1+ A Creatinine Glucose Calcium Phosphorus Total Protein Albumin Albumin/Globulin Ratio Meds: Medications Acetaminophen (Tylenol) 650 mg PO Q4-6HP PRN; Protocol PRN Reason: Per Pain Protocol/Fever > 101 Last Admin: 06/06/20 11:44 Dose: 650 mg Documented by: Hydrocodone Bitart/Acetaminophen ([place] 5/325mg) 1 tab PO Q4-6HP PRN; Protocol PRN Reason: Pain Last Admin: 06/06/20 20:12 Dose: 1 tab Documented by: Atorvastatin Calcium (Lipitor) 10 mg PO HS [facility] Last Admin: 06/06/20 20:13 Dose: 10 mg Documented by: Bisacodyl (Dulcolax) 10 mg [place] Q2-3DAYS PRN PRN Reason: Constipation Dextrose (Dextrose 50%) 0 ml IV UD PRN PRN Reason: Hypoglycemia Diagnostic Test (Pha) (Accu-Chek) 1 each FS ACHS [facility] Last Admin: 06/06/20 20:38 Dose: 1 each Documented by: Docusate Sodium (Colace) 100 mg PO BID [facility] Last Admin: 06/06/20 20:13 Dose: 100 mg Documented by: Fluticasone Propionate (Flonase) 1 spray NS DAILY [facility] Last Admin: 06/06/20 08:20 Dose: Not Given Documented by: Furosemide (Lasix) 40 mg PO QAM [facility] Last Admin: 06/06/20 08:19 Dose: 40 mg Documented by: Glucose (Insta-Glucose) 15 gm PO PRN PRN PRN Reason: Hypoglycemia Guaifenesin/Codeine Phosphate (Robitussin Ac) 10 ml PO Q4HP PRN PRN Reason: Cough Heparin Sodium (Porcine) (Heparin) 5,000 unit SQ Q12 [facility] Last Admin: 06/06/20 20:13 Dose: 5,000 unit Documented by: Acetaminophen (Ofirmev) 650 mg in 65 mls @ 130 mls/hr IV Q6HP PRN; Protocol PRN Reason: Per Pain Protocol/Fever > 101 Magnesium Sulfate (Magnesium Sulfate) 2 gm in 50 mls @ 50 mls/hr IV UD PRN PRN Reason: MG = or < 1.7 Piperacillin Sod/Tazobactam (Sod 3.375 gm/ Dextrose) 50 mls @ 100 mls/hr IV Q6H [facility]; Protocol Last Admin: 06/07/20 05:43 Dose: 100 mls/hr Documented by: Sodium Chloride (Sodium Chloride 0.9%) 250 mls @ 20 mls/hr IV .[id number] [facility] Last Admin: 06/06/20 23:58 Dose: Not Given Documented by: Vancomycin HCl 1,500 mg/ (Sodium Chloride) 500 mls @ 333.3 mls/hr IV DAILY [facility] Last Infusion: 06/06/20 10:00 Dose: Infused Documented by: Norepinephrine Bitartrate 8 mg (/ Sodium Chloride) 250 mls @ 18.75 mls/hr IV Q12HP PRN; Protocol PRN Reason: Hypotension Insulin Glargine (Lantus) 11 unit SQ QPM [facility] Last Admin: 06/06/20 20:13 Dose: 11 unit Documented by: Insulin Human Lispro (Humalog) 0 unit SQ ACHS [facility]; Protocol Last Admin: 06/06/20 20:38 Dose: 3 units Documented by: Iron Carb/Multivit/Sebastian/Folic Acid (Multivitamin W/Minerals) 1 tab PO DAILY [facility] Last Admin: 06/06/20 08:19 Dose: 1 tab Documented by: Melatonin (Melatonin 3mg Tablet) 3 mg PO HSP PRN PRN Reason: Insomnia Last Admin: 06/06/20 20:13 Dose: 3 mg Documented by: Methocarbamol (Robaxin) 500 mg PO BIDP PRN PRN Reason: muscle spasm Last Admin: 06/06/20 20:13 Dose: 500 mg Documented by: Ondansetron HCl (Zofran Odt) 4 mg SL Q4-6HP PRN; Protocol PRN Reason: Nausea And Vomiting Ondansetron HCl (Zofran) 4 mg IV Q4-6HP PRN; Protocol PRN Reason: Nausea And Vomiting Polyethylene Glycol (Miralax) 17 gm PO DAILYP PRN PRN Reason: Constipation Potassium Chloride (Kdur) 10 meq PO BIDCC [facility] Last Admin: 06/06/20 17:44 Dose: 10 meq Documented by: Potassium Chloride (Klor-Con) 40 meq PO DAILYP PRN PRN Reason: K+ < 3.5 Pramipexole Dihydrochloride (Mirapex) 0.75 mg PO [facility] Last Admin: 06/06/20 20:13 Dose: 0.75 mg Documented by: Senna/Docusate Sodium (Senna Plus Tablet) 1 tab PO [facility] Last Admin: 06/06/20 20:13 Dose: 1 tab Documented by: Sitagliptin Phosphate (Januvia) 50 mg PO DAILY [facility] Last Admin: 06/06/20 08:19 Dose: 50 mg Documented by: Sodium Chloride (Saline Flush) 10 ml IV Q8 [facility] Last Admin: 06/07/20 05:43 Dose: 10 ml Documented by: Tamsulosin HCl (Flomax) 0.4 mg PO [facility] Last Admin: 06/06/20 20:13 Dose: 0.4 mg Documented by: Vancomycin HCl (Vancomycin Per Pharmacy) 1 order IV UD [facility]; Protocol A/P Narrative A/P Narrative: A: *Septic shock: 2/2 PNA/RLE cellulitis/?Bacteremia -off vasopressors *GPC bacteremia vs contaminant: Likely source lower extremity cellulitis versus pneumonia -echo no vegetations *Acute Hypoxic resp failure: 2/2 b/l PNA -now on 2L from 6L *B/L PNA, ?aspiration: -RVP/COVID negative *Oropharyngeal Dysphagia, mild: *Right LE cellulitis: clinically improving on antibiotic coverage/limb elevation *CKD III: *DM type II: *HTN: *Chronic pain: on hydrocodone PLAN: -pending surveillance cxs and SC -ID consult if Bacteremia real -Broad Abx until cx return -Supplemental oxygen, IS/Acapella -f/u CXR -dysphagia diet per ST -restarted home ARB/BB -basal and SSI -PT OT/nutrition support -ppx: Heparin full Code Time Spent With Patient Time: Total time spent is greater than 50% in coordination of care (as documented) at patient's floor/unit and/or counseling patient: QUALITY Stroke Symptom Onset Unknown: No VTE Deep Vein Thrombosis/Pulmonary Embolism Present on Admission: No
[2020-06-07 07:47] LABS: ALT/SGPT 14 U/l (0-40); AST/SGOT 18 U/l (0-37); Alkaline Phosphatase 66 U/L (39-117); Bilirubin,Direct < 0.2 mg/dL (0.0-0.3); Bilirubin,Total 0.5 mg/dL (0.0-1.0); Blood Urea Nitrogen 15 mg/dl (8-23); Calcium 8.5 mg/dl (8.6-10.4); Carbon Dioxide 31 mmol/L (22-30); Chloride 95 mmol/L (96-108); Globulin 3.1 gm/dL (2.2-3.7); Glomerular Filtration Rate 58; Glucose 133 mg/dL (70-105); Lactate Dehydrogenase 224 U/L (94-250); Phosphorous 2.4 mg/dL (2.7-4.5); Triglycerides 128 mg/dl (<150); Uric Acid 2.2 mg/dL (2.5-8.0)
--- NOTE | 2020-06-07 08:27 | XRay Report ---
HISTORY: Follow-up pulmonary infiltrates, hypoxia, fever FINDINGS: There are bilateral pulmonary infiltrates with the greatest consolidation in the basilar segments of the left lower lobe. These have become larger compared with prior studies done on 06/05/2020 and 06/06/2020. There may be small bilateral subpulmonic pleural effusions. The heart remains enlarged. The pulmonary vessels, best seen in the upper lobes now appear engorged. IMPRESSION: Worsening consolidation in both lower lobes which may be a combination of pneumonia and atelectasis Cardiomegaly with pulmonary vascular congestion Interpreted and Authenticated by: José Miguel Jama 06/07/20
[2020-06-07] MEDS ORDERED: LOSARTAN 25 MG TABLET PO SCH (09:00)
[2020-06-07] MEDS ORDERED: METOPROLOL SUCCINATE 25 MG TAB.XL.24H PO SCH (09:00)
[2020-06-07] MEDS ORDERED: ALBUMIN HUMAN 12.5 GM/50 ML BAG IV ONE (09:03)
[2020-06-07] MEDS ORDERED: FUROSEMIDE 40 MG/4 ML VIAL IV ONE (09:03)
[2020-06-07] MEDS: INSULIN LISPRO 1 UNIT/0.01 ML UNIT SQ SCH ×4 (09:57→20:47)
[2020-06-07] MEDS: POTASSIUM CHLORIDE 10 MEQ TABLET PO SCH ×2 (09:58→17:42)
[2020-06-07] MEDS: MULTIVIT,THER IRON,CA,FA & MIN 1 TABLET PO SCH (09:58)
[2020-06-07] MEDS: VANCOMYCIN 1,500 MG in 0.9 % SODIUM CHLORIDE 500 ML IV SCH (09:58)
[2020-06-07] MEDS: FUROSEMIDE 40 MG TABLET PO SCH (09:58)
[2020-06-07] MEDS: HEPARIN 5,000 UNIT/ML VIAL SQ SCH ×2 (09:58→20:46)
[2020-06-07] MEDS: sitaGLIPtin 50 MG TABLET PO SCH (09:58)
[2020-06-07] MEDS: DOCUSATE SODIUM 100 MG CAPSULE PO SCH ×2 (09:59→20:45)
[2020-06-07] MEDS: 0.9 % SODIUM CHLORIDE 250 ML IV SCH (09:59)
[2020-06-07] MEDS: FLUTICASONE PROPIONATE SPRAY.NAS NS SCH (09:59)
[2020-06-07] MEDS ORDERED: FUROSEMIDE 20 MG/2 ML VIAL IV ONE (15:30)
[2020-06-07 16:37] LABS: proBNP 732.2 pg/ml (0-450)
[2020-06-07] MEDS ORDERED: ONDANSETRON 4 MG ODT TABLET SL PRN (16:42)
[2020-06-07] MEDS ORDERED: MAGNESIUM SULFATE 2 GM/50 ML BAG IV PRN (16:42)
[2020-06-07] MEDS ORDERED: ONDANSETRON 4 MG/2 ML VIAL IV PRN (16:42)
[2020-06-07] MEDS ORDERED: POLYETHYLENE GLYCOL 3350 17 GM PACKET PO PRN (16:42)
[2020-06-07] MEDS ORDERED: POTASSIUM CHLORIDE 20 MEQ PACKET PO PRN (16:42)
[2020-06-07] MEDS ORDERED: BISACODYL 10 MG SUPP.RECT PR PRN (16:42)
[2020-06-07] MEDS ORDERED: guaiFENesin/CODEINE 10 ML UDC PO PRN (16:42)
[2020-06-07] MEDS ORDERED: VANCOMYCIN PER PHARMACY IV SCH (16:42)
[2020-06-07] MEDS ORDERED: ACETAMINOPHEN 650 MG/65 ML BOTTLE IV PRN (16:42)
[2020-06-07] MEDS ORDERED: DEXTROSE 50% 50 ML VIAL IV PRN (16:42)
[2020-06-07] MEDS ORDERED: 0.9 % SODIUM CHLORIDE 250 ML IV SCH (16:42)
[2020-06-07] MEDS ORDERED: METHOCARBAMOL 500 MG TABLET PO PRN (16:42)
[2020-06-07] MEDS ORDERED: DEXTROSE 31 GM ORAL.SUSP PO PRN (16:42)
[2020-06-07] MEDS ORDERED: NOREPINEPHRINE BITARTRATE 8 MG in 0.9 % SODIUM CHLORIDE 242 ML IV PRN (16:42)
[2020-06-07] MEDS ORDERED: ACETAMINOPHEN 325 MG TABLET PO PRN (16:42)
[2020-06-07] MEDS: PRAMIPEXOLE 0.25 MG TABLET PO SCH (20:45)
[2020-06-07] MEDS: SENNOSIDES/DOCUSATE SODIUM 1 TAB TABLET PO SCH (20:45)
[2020-06-07] MEDS: HYDROcodone/APAP 5/325MG TABLET PO PRN (20:45)
[2020-06-07] MEDS: MELATONIN 3 MG TABLET PO PRN (20:46)
[2020-06-07] MEDS: TAMSULOSIN 0.4 MG CAPSULE PO SCH (20:46)
[2020-06-07] MEDS: ATORVASTATIN 10 MG TABLET PO SCH (20:46)
[2020-06-07] MEDS: INSULIN GLARGINE, HUMAN 1 UNIT/0.01 ML SQ SCH (20:47)
[2020-06-08] MEDS: PIPERACILLIN SODIUM/TAZOBACTAM 3.375 GM in DEXTROSE 5% IN WATER 50 ML IV SCH ×4 (05:25→19:07)
[2020-06-08] MEDS: 0.9 % SODIUM CHLORIDE 10 ML SYRINGE IV SCH ×3 (05:35→21:41)
--- NOTE | 2020-06-08 07:30 | Internal Med Progress Note ---
SUBJECTIVE Subjective Patient information: Note initiated : 06/08/20 at 7:26 am Service Date, if different from initiated Date: [] Patient: Shakira Hou a 84 y/o F admitted on 06/03/20 for dizzines, weakness, UTI, fever. Chief Complaint: [] Interval history: Ms. Hou is a 84 year old F resident of assisted living who presents to the ER with 2 days onset of worsening weakness, dizziness fever and shortness of breath. She was undergoing treatment on ciprofloxacin for UTI. However her symptoms have continued to progress. She also noticed right lower extremity redness and swelling following a spider bite 3 days ago which is now extremely tender to touch and while weightbearing. Initial work-up in the ER was consistent with severe sepsis with a white count of 17,000. She was in respiratory failure requiring 6 L oxygen/bilateral lower lobe pneumonia on CT and pyuria. Patient was promptly started on antibiotics after cultures were drawn. Hospitalist service was consulted. At the time of evaluation patient is alert and oriented. She was able to answer most questions. She is significantly short of breath requiring 6 L oxygen. She endorses to history as above. Denies chest pain, headache, photophobia 06/04-much improved dizziness and weakness however remains on 6 L oxygen. White count improving. Lower extremity redness and swelling much improved, more lucid alert. No overnight telemetry events. Cultures negative so far. 06/0520-[id number] bacteremia. Echocardiogram to rule out infective endocarditis. Source likely bilateral pneumonia. Hypotensive systolics in 70s today. Transfer to ICU start vasopressors. Critically ill. [place] 2 score 14. On 6 L oxygen. Persistent hypoxia. Patient lethargic and lightheaded indicating endorgan dysfunction. 06/06 Feeling a little better today. Denies shortness of breath at rest. Occasional cough. Off vasopressors. Waiting blood culture results. Decreased oxygen need now on 2 L. Patient reports swallowing difficulties, will get speech therapy involved 06/07 COVID neg. occasional cough and mild dyspnea. Otherwise no complaints. Seen by speech and started on dysphagia diet. Oxygen requirement need fluctuates. 06/08 Patient doing well. Sitting up in chair. She can be on room air at times while sitting up in chair bed but sometimes especially when she is sleeping will require more oxygen. Have a history of esophageal stricture and speech therapy is concerned that maybe she is having some silent aspiration from that. Review of Systems: denies fever/chills/vomiting/chest or abdominal pain/diarrhea. Otherwise see above. Constitutional Vitals: Vital Signs Temp Pulse Resp BP Pulse Ox 98.2 F 63 16 140/75 93 06/08/20 05:16 06/08/20 05:16 06/08/20 05:16 06/08/20 05:16 06/08/20 05:16 Period Temp Pulse Resp BP Sys/Glez Pulse Ox Last 24 Hr 97.1 F-98.9 F 63-104 16-26 109-147/51-77 90-98 Intake and Output 06/07/20 06/08/20 06/08/20 21:59 05:59 13:59 Intake Total 410 50 Output Total 325 875 Balance 85 -825 Weight 67.313 kg Intake & Output: Intake & Output 06/07/20 06/08/20 06/08/20 21:59 05:59 13:59 Intake Total 410 50 Output Total 325 875 Balance 85 -825 Weight 67.313 kg Intake: Nourishment/Supplement quantity 240 (ml) IV 50 50 Zosyn 3.375 gm In Dextrose 5% 50 50 in Water 50 ml @ 100 mls/hr IV Q6H [facility] Rx#:[id number] Oral 120 Output: Urine Catheter Amount 325 875 Other: Meal Dinner Percent of Meal Consumed 25% Feeding Ability Assist with Tray Set Up Nourishment/Supplement name shake Urine Appearance Clear Clear Uretheral (Grajeda) Clear Urine Color Bright Yellow Bright Yellow Uretheral (Grajeda) Pale Urine Odor Normal Exam: General: alert and awake, No acute Distress Eyes/N/T: EOMI, Head/Neck: neck supple, CV: RRR, No murmurs, Pulm: diminished but better aeration, fine rales left base, no wheezing, bronchial breath sounds Abd: soft, nontender, +BS x4 Ext: no clubbing/cyanosis, LE erythema improved, 1+ b/l LE edema Neuro: Alert, no focal deficits, moves all extremities, Skin: warm/dry OBJ DATA Labs CBC & Chem 7: 06/06/20 04:57 06/08/20 05:00 Labs: Abnormal Lab Results 06/07/20 06/07/20 06/06/20 15:08 05:17 04:57 Plt Count MPV Seg Neutrophils % Lymphocytes % RBC Morphology Macrocytosis Chloride 95 L Carbon Dioxide 31 H Creatinine 1.2 H Glucose 133 H 135 H Uric Acid 2.2 L Calcium 8.5 L Phosphorus 2.4 L 2.3 L NT-Pro-B Natriuret Pep 732.2 H Total Protein 5.6 L Albumin 3.0 L 2.8 L 06/06/20 06/05/20 04:57 05:05 Plt Count 110 L MPV 10.9 H Seg Neutrophils % 89 H Lymphocytes % 5 L RBC Morphology Abnorm A Macrocytosis 1+ A Chloride Carbon Dioxide Creatinine Glucose Uric Acid Calcium Phosphorus NT-Pro-B Natriuret Pep Total Protein Albumin Meds: Medications Acetaminophen (Tylenol) 650 mg PO Q4-6HP PRN; Protocol PRN Reason: Per Pain Protocol/Fever > 101 Hydrocodone Bitart/Acetaminophen ([place] 5/325mg) 1 tab PO Q4-6HP PRN; Protocol PRN Reason: Pain Last Admin: 06/07/20 20:45 Dose: 1 tab Documented by: Atorvastatin Calcium (Lipitor) 10 mg PO HS [facility] Last Admin: 06/07/20 20:46 Dose: 10 mg Documented by: Bisacodyl (Dulcolax) 10 mg SD Q2-3DAYS PRN PRN Reason: Constipation Dextrose (Dextrose 50%) 0 ml IV UD PRN PRN Reason: Hypoglycemia Diagnostic Test (Pha) (Accu-Chek) 1 each FS ACHS [facility] Last Admin: 06/07/20 20:46 Dose: 1 each Documented by: Docusate Sodium (Colace) 100 mg PO BID [facility] Last Admin: 06/07/20 20:45 Dose: 100 mg Documented by: Fluticasone Propionate (Flonase) 1 spray NS DAILY [facility] Furosemide (Lasix) 40 mg PO QAM [facility] Glucose (Insta-Glucose) 15 gm PO PRN PRN PRN Reason: Hypoglycemia Guaifenesin/Codeine Phosphate (Robitussin Ac) 10 ml PO Q4HP PRN PRN Reason: Cough Heparin Sodium (Porcine) (Heparin) 5,000 unit SQ Q12 [facility] Last Admin: 06/07/20 20:46 Dose: 5,000 unit Documented by: Acetaminophen (Ofirmev) 650 mg in 65 mls @ 130 mls/hr IV Q6HP PRN; Protocol PRN Reason: Per Pain Protocol/Fever > 101 Magnesium Sulfate (Magnesium Sulfate) 2 gm in 50 mls @ 50 mls/hr IV UD PRN PRN Reason: MG = or < 1.7 Piperacillin Sod/Tazobactam (Sod 3.375 gm/ Dextrose) 50 mls @ 100 mls/hr IV Q6H [facility]; Protocol Last Admin: 06/08/20 05:25 Dose: 100 mls/hr Documented by: Vancomycin HCl 1,500 mg/ (Sodium Chloride) 500 mls @ 333.3 mls/hr IV DAILY [facility] Norepinephrine Bitartrate 8 mg (/ Sodium Chloride) 250 mls @ 18.75 mls/hr IV Q12HP PRN; Protocol PRN Reason: Hypotension Insulin Glargine (Lantus) 11 unit SQ QPM [facility] Last Admin: 06/07/20 20:47 Dose: 11 unit Documented by: Insulin Human Lispro (Humalog) 0 unit SQ ACHS [facility]; Protocol Last Admin: 06/07/20 20:47 Dose: 2 units Documented by: Iron Carb/Multivit/Property Staff Accountant/Folic Acid (Multivitamin W/Minerals) 1 tab PO DAILY [facility] Losartan Potassium (Cozaar) 25 mg PO QDAY [facility] Melatonin (Melatonin 3mg Tablet) 3 mg PO HSP PRN PRN Reason: Insomnia Last Admin: 06/07/20 20:46 Dose: 3 mg Documented by: Methocarbamol (Robaxin) 500 mg PO BIDP PRN PRN Reason: muscle spasm Metoprolol Succinate (Toprol Xl) 25 mg PO DAILY [facility] Ondansetron HCl (Zofran Odt) 4 mg SL Q4-6HP PRN; Protocol PRN Reason: Nausea And Vomiting Ondansetron HCl (Zofran) 4 mg IV Q4-6HP PRN; Protocol PRN Reason: Nausea And Vomiting Polyethylene Glycol (Miralax) 17 gm PO DAILYP PRN PRN Reason: Constipation Potassium Chloride (Kdur) 10 meq PO BIDCC [facility] Last Admin: 06/07/20 17:42 Dose: 10 meq Documented by: Potassium Chloride (Klor-Con) 40 meq PO DAILYP PRN PRN Reason: K+ < 3.5 Pramipexole Dihydrochloride (Mirapex) 0.75 mg PO HS [facility] Last Admin: 06/07/20 20:45 Dose: 0.75 mg Documented by: Senna/Docusate Sodium (Senna Plus Tablet) 1 tab PO HS [facility] Last Admin: 06/07/20 20:45 Dose: 1 tab Documented by: Sitagliptin Phosphate (Januvia) 50 mg PO DAILY [facility] Sodium Chloride (Saline Flush) 10 ml IV Q8 [facility] Last Admin: 06/08/20 05:35 Dose: 10 ml Documented by: Tamsulosin HCl (Flomax) 0.4 mg PO HS [facility] Last Admin: 06/07/20 20:46 Dose: 0.4 mg Documented by: Vancomycin HCl (Vancomycin Per Pharmacy) 1 order IV UD [facility]; Protocol A/P Narrative A/P Narrative: A: *Septic shock: 2/2 PNA/RLE cellulitis/?Bacteremia -off vasopressors *GPC bacteremia vs contaminant: Likely source lower extremity cellulitis versus pneumonia -echo no vegetations *Acute Hypoxic resp failure: 2/2 b/l PNA -fluctuates between 1-3L O2 from 6L initially *B/L PNA, ?aspiration: -RVP/COVID negative *Oropharyngeal Dysphagia, possibly esophageal component: *Right LE cellulitis: clinically improving on antibiotic coverage/limb elevation *CKD III: *DM type II: *HTN: *Chronic pain: on hydrocodone PLAN: -awaiting identity of BC (?contaminant) and SC -ID consult if Bacteremia real -d/c vanco ,cont zosyn until cx return -Supplemental oxygen, IS/Acapella -chest u/s -dysphagia diet per ST -f/u with GI regarding esophageal stricture -restarted home ARB/BB -basal and SSI -PT OT/nutrition support -ppx: Heparin no intubation, but CPR ok Time Spent With Patient Time: Total time spent is greater than 50% in coordination of care (as documented) at patient's floor/unit and/or counseling patient: QUALITY Stroke Symptom Onset Unknown: No VTE Deep Vein Thrombosis/Pulmonary Embolism Present on Admission: No
[2020-06-08 07:48] LABS: ALT/SGPT 18 U/l (0-40); AST/SGOT 26 U/l (0-37); Albumin/Globulin Ratio 1.1 (1.0-2.3); Alkaline Phosphatase 52 U/L (39-117); Bilirubin,Direct < 0.2 mg/dL (0.0-0.3); Bilirubin,Total 0.4 mg/dL (0.0-1.0); Blood Urea Nitrogen 16 mg/dl (8-23); Calcium 8.6 mg/dl (8.6-10.4); Globulin 2.7 gm/dL (2.2-3.7); Glomerular Filtration Rate 45; Glucose 100 mg/dL (70-105); Lactate Dehydrogenase 179 U/L (94-250); Triglycerides 66 mg/dl (<150); Uric Acid 2.4 mg/dL (2.5-8.0)
[2020-06-08 07:49] LABS: Carbon Dioxide 39 mmol/L (22-30); Chloride 92 mmol/L (96-108); Phosphorous 3.6 mg/dL (2.7-4.5)
[2020-06-08] MEDS ORDERED: VANCOMYCIN 1,500 MG in 0.9 % SODIUM CHLORIDE 500 ML IV SCH (09:00)
--- NOTE | 2020-06-08 09:05 | XRay Report ---
HISTORY: Follow-up pulmonary infiltrates, fever FINDINGS: There are bibasilar infiltrates with air bronchograms in the left lower lobe. There has been improvement on the left side and little change on the right since 06/07/20. There may be a small left-sided pleural effusion. The heart is mildly enlarged. There is stable borderline pulmonary vascular congestion. IMPRESSION: bibasilar infiltrates with mild improvement in the left side Interpreted and Authenticated by: José Miguel Jama 06/08/20
[2020-06-08] MEDS: INSULIN LISPRO 1 UNIT/0.01 ML UNIT SQ SCH ×4 (09:11→21:40)
[2020-06-08] MEDS: LOSARTAN 25 MG TABLET PO SCH (09:12)
[2020-06-08] MEDS: DOCUSATE SODIUM 100 MG CAPSULE PO SCH ×2 (09:13→21:41)
[2020-06-08] MEDS: POTASSIUM CHLORIDE 10 MEQ TABLET PO SCH ×2 (09:13→17:35)
[2020-06-08] MEDS: sitaGLIPtin 50 MG TABLET PO SCH (09:13)
[2020-06-08] MEDS: MULTIVIT,THER IRON,CA,FA & MIN 1 TABLET PO SCH (09:13)
[2020-06-08] MEDS: HEPARIN 5,000 UNIT/ML VIAL SQ SCH ×2 (09:13→21:40)
[2020-06-08] MEDS: FUROSEMIDE 40 MG TABLET PO SCH (09:13)
[2020-06-08] MEDS: METOPROLOL SUCCINATE 25 MG TAB.XL.24H PO SCH (09:13)
[2020-06-08] MEDS: FLUTICASONE PROPIONATE SPRAY.NAS NS SCH (09:14)
--- NOTE | 2020-06-08 10:36 | Ultrasound Report ---
History: Pleural effusion FINDINGS: There is a small to moderate size pleural effusion in the left lower thorax. The underlying lung is atelectatic and consolidated. A Trace amount of pleural fluid is seen in the right thorax. There is also consolidation in the right lower lobe.. IMPRESSION: Small to moderate left side pleural effusion and very small right-sided pleural effusion Interpreted and Authenticated by: José Miguel Jama 06/08/20
[2020-06-08] MEDS: TAMSULOSIN 0.4 MG CAPSULE PO SCH (21:39)
[2020-06-08] MEDS: ATORVASTATIN 10 MG TABLET PO SCH (21:39)
[2020-06-08] MEDS: SENNOSIDES/DOCUSATE SODIUM 1 TAB TABLET PO SCH (21:39)
[2020-06-08] MEDS: PRAMIPEXOLE 0.25 MG TABLET PO SCH (21:39)
[2020-06-08] MEDS: INSULIN GLARGINE, HUMAN 1 UNIT/0.01 ML SQ SCH (21:40)
[2020-06-08] MEDS: MELATONIN 3 MG TABLET PO PRN (21:45)
[2020-06-08] MEDS: HYDROcodone/APAP 5/325MG TABLET PO PRN (21:54)
[2020-06-09] MEDS: PIPERACILLIN SODIUM/TAZOBACTAM 3.375 GM in DEXTROSE 5% IN WATER 50 ML IV SCH ×5 (00:35→23:18)
[2020-06-09] MEDS: 0.9 % SODIUM CHLORIDE 10 ML SYRINGE IV SCH ×3 (05:25→20:23)
[2020-06-09] MEDS: INSULIN LISPRO 1 UNIT/0.01 ML UNIT SQ SCH ×4 (07:01→20:21)
--- NOTE | 2020-06-09 07:17 | Internal Med Progress Note ---
SUBJECTIVE Subjective Patient information: Note initiated : 06/09/20 at 7:13 am Service Date, if different from initiated Date: [] Patient: Shakira Hou a 84 y/o F admitted on 06/03/20 for dizzines, weakness, UTI, fever. Chief Complaint: [] Interval history: Ms. Hou is a 84 year old F resident of assisted living who presents to the ER with 2 days onset of worsening weakness, dizziness fever and shortness of breath. She was undergoing treatment on ciprofloxacin for UTI. However her symptoms have continued to progress. She also noticed right lower extremity redness and swelling following a spider bite 3 days ago which is now extremely tender to touch and while weightbearing. Initial work-up in the ER was consistent with severe sepsis with a white count of 17,000. She was in respiratory failure requiring 6 L oxygen/bilateral lower lobe pneumonia on CT and pyuria. Patient was promptly started on antibiotics after cultures were drawn. Hospitalist service was consulted. At the time of evaluation patient is alert and oriented. She was able to answer most questions. She is significantly short of breath requiring 6 L oxygen. She endorses to history as above. Denies chest pain, headache, photophobia 06/04-much improved dizziness and weakness however remains on 6 L oxygen. White count improving. Lower extremity redness and swelling much improved, more lucid alert. No overnight telemetry events. Cultures negative so far. 06/[id number] bacteremia. Echocardiogram to rule out infective endocarditis. Source likely bilateral pneumonia. Hypotensive systolics in 70s today. Transfer to ICU start vasopressors. Critically ill. [place] 2 score 14. On 6 L oxygen. Persistent hypoxia. Patient lethargic and lightheaded indicating endorgan dysfunction. 06/06 Feeling a little better today. Denies shortness of breath at rest. Occasional cough. Off vasopressors. Waiting blood culture results. Decreased oxygen need now on 2 L. Patient reports swallowing difficulties, will get speech therapy involved 06/07 COVID neg. occasional cough and mild dyspnea. Otherwise no complaints. Seen by speech and started on dysphagia diet. Oxygen requirement need fluctuates. 06/08 Patient doing well. Sitting up in chair. She can be on room air at times while sitting up in chair bed but sometimes especially when she is sleeping will require more oxygen. Have a history of esophageal stricture and speech therapy is concerned that maybe she is having some silent aspiration from that. 06/09 Patient states he feels little better. Denies cough or shortness of breath although is on oxygen mask. Scheduled to get EGD today. Still waiting for identities of the first blood culture that was positive . Review of Systems: denies fever/chills/vomiting/chest or abdominal pain/diarrhea. Otherwise see above. Constitutional Vitals: Vital Signs Temp Pulse Resp BP Pulse Ox 98.2 F 76 18 112/59 91 06/09/20 03:55 06/09/20 03:55 06/09/20 03:55 06/09/20 03:55 06/09/20 03:55 Period Temp Pulse Resp BP Sys/Glez Pulse Ox Last 24 Hr 98.0 F-98.9 F 63-77 82-127/45-73 90-99 Intake and Output 06/08/20 06/09/20 06/09/20 21:59 05:59 13:59 Intake Total 100 400 Output Total 875 Balance 100 -475 Weight 64.949 kg Intake & Output: Intake & Output 06/08/20 06/09/20 06/09/20 21:59 05:59 13:59 Intake Total 100 400 Output Total 875 Balance 100 -475 Weight 64.949 kg Intake: IV 100 50 Zosyn 3.375 gm In Dextrose 5% 100 50 in Water 50 ml @ 100 mls/hr IV Q6H [facility] Rx#:[id number] Oral 350 Output: Urine Catheter Amount 875 Other: Urine Appearance Clear Uretheral (Grajeda) Clear Urine Color Bright Yellow Uretheral (Grajeda) Bright Yellow Exam: General: alert and awake, No acute Distress Eyes/N/T: EOMI, Head/Neck: neck supple, CV: RRR, No murmurs, Pulm: better aeration, fine rales left base, no wheezing, bronchial breath sounds Abd: soft, nontender, +BS x4 Ext: no clubbing/cyanosis, LE erythema improved, 1+ b/l LE edema Neuro: Alert, no focal deficits, moves all extremities, Skin: warm/dry OBJ DATA Labs CBC & Chem 7: 06/06/20 04:57 06/08/20 05:00 Labs: Abnormal Lab Results 06/08/20 06/07/20 06/07/20 05:00 15:08 05:17 Chloride 92 L 95 L Carbon Dioxide 39 H 31 H Creatinine Glucose 133 H Uric Acid 2.4 L 2.2 L Calcium 8.5 L Phosphorus 2.4 L NT-Pro-B Natriuret Pep 732.2 H Total Protein 5.7 L Albumin 3.0 L 3.0 L 06/06/20 04:57 Chloride Carbon Dioxide Creatinine 1.2 H Glucose 135 H Uric Acid Calcium Phosphorus 2.3 L NT-Pro-B Natriuret Pep Total Protein 5.6 L Albumin 2.8 L Meds: Medications Acetaminophen (Tylenol) 650 mg PO Q4-6HP PRN; Protocol PRN Reason: Per Pain Protocol/Fever > 101 Hydrocodone Bitart/Acetaminophen ([place] 5/325mg) 1 tab PO Q4-6HP PRN; Protocol PRN Reason: Pain Last Admin: 06/08/20 21:54 Dose: 1 tab Documented by: Atorvastatin Calcium (Lipitor) 10 mg PO HS [facility] Last Admin: 06/08/20 21:39 Dose: 10 mg Documented by: Bisacodyl (Dulcolax) 10 mg [place] Q2-3DAYS PRN PRN Reason: Constipation Dextrose (Dextrose 50%) 0 ml IV UD PRN PRN Reason: Hypoglycemia Diagnostic Test (Pha) (Accu-Chek) 1 each FS ACHS [facility] Last Admin: 06/09/20 06:48 Dose: 1 each Documented by: Docusate Sodium (Colace) 100 mg PO BID [facility] Last Admin: 06/08/20 21:41 Dose: Not Given Documented by: Fluticasone Propionate (Flonase) 1 spray NS DAILY [facility] Last Admin: 06/08/20 09:14 Dose: Not Given Documented by: Furosemide (Lasix) 40 mg PO QAM [facility] Last Admin: 06/08/20 09:13 Dose: 40 mg Documented by: Glucose (Insta-Glucose) 15 gm PO PRN PRN PRN Reason: Hypoglycemia Guaifenesin/Codeine Phosphate (Robitussin Ac) 10 ml PO Q4HP PRN PRN Reason: Cough Heparin Sodium (Porcine) (Heparin) 5,000 unit SQ Q12 [facility] Last Admin: 06/08/20 21:40 Dose: 5,000 unit Documented by: Acetaminophen (Ofirmev) 650 mg in 65 mls @ 130 mls/hr IV Q6HP PRN; Protocol PRN Reason: Per Pain Protocol/Fever > 101 Magnesium Sulfate (Magnesium Sulfate) 2 gm in 50 mls @ 50 mls/hr IV UD PRN PRN Reason: MG = or < 1.7 Piperacillin Sod/Tazobactam (Sod 3.375 gm/ Dextrose) 50 mls @ 100 mls/hr IV Q6H [facility]; Protocol Last Admin: 06/09/20 05:25 Dose: 100 mls/hr Documented by: Norepinephrine Bitartrate 8 mg (/ Sodium Chloride) 250 mls @ 18.75 mls/hr IV Q12HP PRN; Protocol PRN Reason: Hypotension Insulin Glargine (Lantus) 11 unit SQ QPM [facility] Last Admin: 06/08/20 21:40 Dose: 11 unit Documented by: Insulin Human Lispro (Humalog) 0 unit SQ ACHS [facility]; Protocol Last Admin: 06/09/20 07:01 Dose: Not Given Documented by: Iron Carb/Multivit/[place]/Folic Acid (Multivitamin W/Minerals) 1 tab PO DAILY [facility] Last Admin: 06/08/20 09:13 Dose: 1 tab Documented by: Losartan Potassium (Cozaar) 25 mg PO QDAY [facility] Last Admin: 06/08/20 09:12 Dose: 25 mg Documented by: Melatonin (Melatonin 3mg Tablet) 3 mg PO HSP PRN PRN Reason: Insomnia Last Admin: 06/08/20 21:45 Dose: 3 mg Documented by: Methocarbamol (Robaxin) 500 mg PO BIDP PRN PRN Reason: muscle spasm Metoprolol Succinate (Toprol Xl) 25 mg PO DAILY [facility] Last Admin: 06/08/20 09:13 Dose: 25 mg Documented by: Ondansetron HCl (Zofran Odt) 4 mg SL Q4-6HP PRN; Protocol PRN Reason: Nausea And Vomiting Ondansetron HCl (Zofran) 4 mg IV Q4-6HP PRN; Protocol PRN Reason: Nausea And Vomiting Polyethylene Glycol (Miralax) 17 gm PO DAILYP PRN PRN Reason: Constipation Potassium Chloride (Kdur) 10 meq PO BIDCC [facility] Last Admin: 06/08/20 17:35 Dose: 10 meq Documented by: Potassium Chloride (Klor-Con) 40 meq PO DAILYP PRN PRN Reason: K+ < 3.5 Pramipexole Dihydrochloride (Mirapex) 0.75 mg PO [facility] Last Admin: 06/08/20 21:39 Dose: 0.75 mg Documented by: Senna/Docusate Sodium (Senna Plus Tablet) 1 tab PO [facility] Last Admin: 06/08/20 21:39 Dose: 1 tab Documented by: Sitagliptin Phosphate (Januvia) 50 mg PO DAILY [facility] Last Admin: 06/08/20 09:13 Dose: 50 mg Documented by: Sodium Chloride (Saline Flush) 10 ml IV Q8 [facility] Last Admin: 06/09/20 05:25 Dose: 10 ml Documented by: Tamsulosin HCl (Flomax) 0.4 mg PO [facility] Last Admin: 06/08/20 21:39 Dose: 0.4 mg Documented by: A/P Narrative A/P Narrative: A: *Septic shock: 2/2 PNA/RLE cellulitis/?Bacteremia -Resolved *GPC bacteremia vs contaminant: Likely source lower extremity cellulitis versus pneumonia -echo no vegetations *Acute Hypoxic resp failure: 2/2 b/l PNA -fluctuates between 1-3L O2 from 6L initially *B/L PNA, ?Aspiration: -RVP/COVID negative *Oropharyngeal Dysphagia and Esophageal Dysphagia: *Right LE cellulitis: clinically improving on antibiotic coverage/limb elevation *CKD III: *DM type II: *HTN: *Chronic pain: on hydrocodone PLAN: -still awaiting identity of BC (?contaminant) and SC -ID consult if Bacteremia real -on zosyn until cx return -Supplemental oxygen, IS/Acapella -GI for endoscopy for eval of esophageal stricture -dysphagia diet per ST -restarted home ARB/BB -basal and SSI -PT OT/nutrition support -ppx: Heparin no intubation, but CPR ok Time Spent With Patient Time: Total time spent is greater than 50% in coordination of care (as documented) at patient's floor/unit and/or counseling patient: QUALITY Stroke Symptom Onset Unknown: No VTE Deep Vein Thrombosis/Pulmonary Embolism Present on Admission: No
[2020-06-09] MEDS: METOPROLOL SUCCINATE 25 MG TAB.XL.24H PO SCH (08:10)
[2020-06-09] MEDS: LOSARTAN 25 MG TABLET PO SCH (08:10)
[2020-06-09] MEDS: HEPARIN 5,000 UNIT/ML VIAL SQ SCH ×2 (08:10→20:21)
[2020-06-09] MEDS: FUROSEMIDE 40 MG TABLET PO SCH (08:10)
[2020-06-09] MEDS: FLUTICASONE PROPIONATE SPRAY.NAS NS SCH (08:11)
[2020-06-09] MEDS: DOCUSATE SODIUM 100 MG CAPSULE PO SCH ×2 (08:11→20:20)
[2020-06-09] MEDS: sitaGLIPtin 50 MG TABLET PO SCH (08:11)
[2020-06-09] MEDS: POTASSIUM CHLORIDE 10 MEQ TABLET PO SCH ×2 (08:11→17:33)
[2020-06-09] MEDS: MULTIVIT,THER IRON,CA,FA & MIN 1 TABLET PO SCH (08:11)
[2020-06-09] MEDS ORDERED: PROPOFOL 200 MG/20 ML VIAL IV SCH (13:00)
[2020-06-09] MEDS ORDERED: MIDAZOLAM 2 MG/2 ML VIAL IV SCH (13:00)
[2020-06-09] MEDS ORDERED: PROPOFOL 200 MG/20 ML VIAL IV ONE (14:05)
--- NOTE | 2020-06-09 15:06 | Operative Note ---
DATE OF OPERATION: 06/09/2020 PREPROCEDURE DIAGNOSES: Reflux esophagitis with stricture. POSTPROCEDURE DIAGNOSES: 1. Large duodenal ulcer, not actively bleeding. 2. Gastritis. 3. EGitis. 4. Stricture EG junction. PROCEDURE: Esophagogastroduodenoscopy with biopsy and balloon dilation of stricture. SURGEON: Parvez Trujillo M.D. INSTRUMENT USED: Olympus JOHN PAUL [id number] endoscope. SPECIMENS OBTAINED: Biopsies from antrum to check for Helicobacter. INDICATIONS FOR PROCEDURE: The patient is an 84-year-old lady referred to me by one of the hospitalist, Dr. Barajas. I believe the patient's primary care physician is Ale Long PA-C. The patient did complain of some dizziness, weakness, urinary tract infection, and fever. I believe she did have some respiratory problems in the past. She has had some improvement. She does complain of some dysphagia. She also complains of reflux. Endoscopy is indicated to evaluate for pathology that may explain her symptoms. INFORMED CONSENT: Time of informed consent is 1359. The procedure was reviewed with the patient. The patient had no further questions and accepts the risks and benefits thereof. One of the risks that were discussed included . Additional risks that were also discussed included bleeding, reaction to medication, possible perforation and possible need for surgery. IV MEDICATIONS USED: Versed 0, propofol 100 mg. FINDINGS: ESOPHAGUS: Proximal, mid, and distal esophagus normal. EG JUNCTION: This was at 41 cm. There was erythema and edema and a nearly complete stricture noted. This was dilated with a 15 mm size and 18 mm size on the balloon. No significant fracture was noted. STOMACH: Cardia, fundus, and body normal. Antrum: There were a few areas of erythema and edema noted. Biopsies were taken to check for Helicobacter. PYLORUS: Normal. DUODENUM: There was some erythema and edema in the duodenal bulb. At the junction of the bulb and descending limb of the duodenum, there was a 2 cm ulcer. No active bleeding was noted. No visible vessel was noted. The distal descending limb of the duodenum appeared normal. RECOMMENDATIONS: Omeprazole 20 mg once a day or other PPI medication at a standard dose. Prescription can be allowed for #30 with 11 refills. I would recommend a repeat EGD in about 3 months. This probably should be done at the hospital given the patient's age and other health conditions. She should follow antireflux measures. I have no objection if she resumes diet and medications. Sedation time was 1408 to 1435. Please refer to the preprocedure nurse's notes, procedure flowsheet, procedure record, and post-procedure assessment for details of the sedation including the pre-, intra-, and post-service work. CRD:ingrid Job ID: [id number] Doc ID: [id number] Parvez Trujillo MD
[2020-06-09] MEDS: PANTOPRAZOLE 40 MG PACKET PO SCH (16:20)
[2020-06-09] MEDS: SENNOSIDES/DOCUSATE SODIUM 1 TAB TABLET PO SCH (20:20)
[2020-06-09] MEDS: TAMSULOSIN 0.4 MG CAPSULE PO SCH (20:21)
[2020-06-09] MEDS: INSULIN GLARGINE, HUMAN 1 UNIT/0.01 ML SQ SCH (20:21)
[2020-06-09] MEDS: PRAMIPEXOLE 0.25 MG TABLET PO SCH (20:22)
[2020-06-09] MEDS: ATORVASTATIN 10 MG TABLET PO SCH (20:22)
[2020-06-09] MEDS: MELATONIN 3 MG TABLET PO PRN (20:22)
[2020-06-10] MEDS: HYDROcodone/APAP 5/325MG TABLET PO PRN (01:19)
[2020-06-10] MEDS: PIPERACILLIN SODIUM/TAZOBACTAM 3.375 GM in DEXTROSE 5% IN WATER 50 ML IV SCH ×3 (05:13→18:05)
[2020-06-10] MEDS: 0.9 % SODIUM CHLORIDE 10 ML SYRINGE IV SCH ×3 (05:13→20:14)
[2020-06-10 06:11] LABS: Basophils # (Auto) 0.02 K/mcL (0.00-0.30); Basophils % (Auto) 0.3 % (0.0-2.0); Eosinophils # (Auto) 0.22 K/mcL (0.00-0.70); Eosinophils % (Auto) 2.8 % (0.0-7.0); Granulocytes % (Auto) 70.5 % (38.0-78.0); Hematocrit 36.4 % (34.1-44.9); Hemoglobin 11.7 g/dL (11.2-15.7); Lymphocytes # (Auto) 1.34 K/mcL (1.50-4.80); Lymphocytes % (Auto) 17.2 % (15.5-49.0); Mean Cell Volume 95.3 fL (80.0-100.0); Mean Corpuscular HGB Conc 32.1 g/dL (31.0-36.0); Mean Platelet Volume 10.3 fL (7.4-10.4); Monocytes # (Auto) 0.72 K/mcL (0.10-0.90); Monocytes % (Auto) 9.2 % (1.0-12.0); Platelet Count 177 K/mcL (140-440); RBC 3.82 M/mcL (3.59-5.38); Red Cell Distribution Width 14.4 % (11.5-14.5); WBC 7.8 K/mcL (4.50-11.00)
[2020-06-10 06:39] LABS: ALT/SGPT 50 U/l (0-40); AST/SGOT 60 U/l (0-37); Albumin 3.1 gm/dL (3.2-5.2); Albumin/Globulin Ratio 1.1 (1.0-2.3); Alkaline Phosphatase 58 U/L (39-117); Bilirubin,Direct < 0.2 mg/dL (0.0-0.3); Bilirubin,Total 0.5 mg/dL (0.0-1.0); Blood Urea Nitrogen 22 mg/dl (8-23); Calcium 9.1 mg/dl (8.6-10.4); Carbon Dioxide 39 mmol/L (22-30); Chloride 89 mmol/L (96-108); Globulin 2.7 gm/dL (2.2-3.7); Glomerular Filtration Rate 34; Glucose 118 mg/dL (70-105); Lactate Dehydrogenase 174 U/L (94-250); Phosphorous 3.4 mg/dL (2.7-4.5); Triglycerides 95 mg/dl (<150); Uric Acid 3.4 mg/dL (2.5-8.0)
[2020-06-10] MEDS: INSULIN LISPRO 1 UNIT/0.01 ML UNIT SQ SCH ×4 (07:31→20:12)
--- NOTE | 2020-06-10 07:46 | Internal Med Progress Note ---
SUBJECTIVE Subjective Patient information: Note initiated : 06/10/20 at 7:41 am Service Date, if different from initiated Date: [] Patient: Shakira Hou a 84 y/o F admitted on 06/03/20 for dizzines, weakness, UTI, fever. Chief Complaint: [] Interval history: Ms. Hou is a 84 year old F resident of assisted living who presents to the ER with 2 days onset of worsening weakness, dizziness fever and shortness of breath. She was undergoing treatment on ciprofloxacin for UTI. However her symptoms have continued to progress. She also noticed right lower extremity redness and swelling following a spider bite 3 days ago which is now extremely tender to touch and while weightbearing. Initial work-up in the ER was consistent with severe sepsis with a white count of 17,000. She was in respiratory failure requiring 6 L oxygen/bilateral lower lobe pneumonia on CT and pyuria. Patient was promptly started on antibiotics after cultures were drawn. Hospitalist service was consulted. At the time of evaluation patient is alert and oriented. She was able to answer most questions. She is significantly short of breath requiring 6 L oxygen. She endorses to history as above. Denies chest pain, headache, photophobia 06/04-much improved dizziness and weakness however remains on 6 L oxygen. White count improving. Lower extremity redness and swelling much improved, more lucid alert. No overnight telemetry events. Cultures negative so far. 06/[id number] bacteremia. Echocardiogram to rule out infective endocarditis. Source likely bilateral pneumonia. Hypotensive systolics in 70s today. Transfer to ICU start vasopressors. Critically ill. [place] 2 score 14. On 6 L oxygen. Persistent hypoxia. Patient lethargic and lightheaded indicating endorgan dysfunction. 06/06 Feeling a little better today. Denies shortness of breath at rest. Occasional cough. Off vasopressors. Waiting blood culture results. Decreased oxygen need now on 2 L. Patient reports swallowing difficulties, will get speech therapy involved 06/07 COVID neg. occasional cough and mild dyspnea. Otherwise no complaints. Seen by speech and started on dysphagia diet. Oxygen requirement need fluctuates. 06/08 Patient doing well. Sitting up in chair. She can be on room air at times while sitting up in chair bed but sometimes especially when she is sleeping will require more oxygen. Have a history of esophageal stricture and speech therapy is concerned that maybe she is having some silent aspiration from that. 06/09 Patient states he feels little better. Denies cough or shortness of breath although is on oxygen mask. Scheduled to get EGD today. Still waiting for identities of the first blood culture that was positive 06/10 Patient has poor sleep last night because she has some anxiety and was worried about staff not being aware of her since she had moved out into the [place] and could not see then nurses like she had been able to in the unit. Otherwise no new complaints. She has occasional cough and denies shortness of breath at res t. Review of Systems: denies fever/chills/vomiting/chest or abdominal pain/diarrhea. Otherwise see above. Constitutional Vitals: Vital Signs Temp Pulse Resp BP Pulse Ox 98.9 F 71 18 102/51 96 06/10/20 03:18 06/10/20 03:18 06/10/20 03:18 06/10/20 03:18 06/10/20 03:18 Period Temp Pulse Resp BP Sys/Glez Pulse Ox Last 24 Hr 97.7 F-98.9 F 64-91 14-18 80-132/46-68 91-98 Intake and Output 06/09/20 06/10/20 06/10/20 21:59 05:59 13:59 Intake Total 530 290 Output Total 350 300 Balance 180 -10 Weight 63.56 kg Intake & Output: Intake & Output 06/09/20 06/10/20 06/10/20 21:59 05:59 13:59 Intake Total 530 290 Output Total 350 300 Balance 180 -10 Weight 63.56 kg Intake: Nourishment/Supplement quantity 240 (ml) IV 50 50 Zosyn 3.375 gm In Dextrose 5% 50 50 in Water 50 ml @ 100 mls/hr IV Q6H [facility] Rx#:[id number] Oral 240 240 Output: Urine Catheter Amount 350 300 Other: Meal snack Percent of Meal Consumed 100% Feeding Ability Assist with Tray Set Up Nourishment/Supplement name glucerna Urine Appearance Clear Uretheral (Grajeda) Clear Urine Color Pale Uretheral (Grajeda) Bright Yellow Urine Odor Normal Stool Size Moderate Moderate Stool Color Brown Brown Stool Consistency Normal for Patient Soft Soft # Bowel Movements 1 Exam: General: alert and awake, No acute Distress Eyes/N/T: EOMI, Head/Neck: neck supple, CV: RRR, No murmurs, Pulm: better aeration, no wheezing, Abd: soft, nontender, +BS x4 Ext: no clubbing/cyanosis, LE erythema improved, mild b/l LE edema Neuro: Alert, no focal deficits, moves all extremities, Skin: warm/dry OBJ DATA Labs CBC & Chem 7: 06/10/20 04:42 06/10/20 04:42 Labs: Abnormal Lab Results 06/10/20 06/10/20 06/08/20 04:42 04:42 05:00 Lymph # (Auto) 1.34 L Chloride 89 L 92 L Carbon Dioxide 39 H 39 H Creatinine 1.4 H Glucose 118 H Uric Acid 2.4 L Calcium Phosphorus AST 60 H ALT 50 H NT-Pro-B Natriuret Pep Total Protein 5.8 L 5.7 L Albumin 3.1 L 3.0 L 06/07/20 06/07/20 15:08 05:17 Lymph # (Auto) Chloride 95 L Carbon Dioxide 31 H Creatinine Glucose 133 H Uric Acid 2.2 L Calcium 8.5 L Phosphorus 2.4 L AST ALT NT-Pro-B Natriuret Pep 732.2 H Total Protein Albumin 3.0 L Meds: Medications Acetaminophen (Tylenol) 650 mg PO Q4-6HP PRN; Protocol PRN Reason: Per Pain Protocol/Fever > 101 Hydrocodone Bitart/Acetaminophen ([place] 5/325mg) 1 tab PO Q4-6HP PRN; Protocol PRN Reason: Pain Last Admin: 06/10/20 01:19 Dose: 1 tab Documented by: Atorvastatin Calcium (Lipitor) 10 mg PO HS [facility] Last Admin: 06/09/20 20:22 Dose: 10 mg Documented by: Bisacodyl (Dulcolax) 10 mg [place] Q2-3DAYS PRN PRN Reason: Constipation Dextrose (Dextrose 50%) 0 ml IV UD PRN PRN Reason: Hypoglycemia Diagnostic Test (Pha) (Accu-Chek) 1 each FS ACHS [facility] Last Admin: 06/10/20 07:29 Dose: 1 each Documented by: Docusate Sodium (Colace) 100 mg PO BID [facility] Last Admin: 06/09/20 20:20 Dose: Not Given Documented by: Fluticasone Propionate (Flonase) 1 spray NS DAILY [facility] Last Admin: 06/09/20 08:11 Dose: Not Given Documented by: Furosemide (Lasix) 40 mg PO QAM [facility] Last Admin: 06/09/20 08:10 Dose: 40 mg Documented by: Glucose (Insta-Glucose) 15 gm PO PRN PRN PRN Reason: Hypoglycemia Guaifenesin/Codeine Phosphate (Robitussin Ac) 10 ml PO Q4HP PRN PRN Reason: Cough Heparin Sodium (Porcine) (Heparin) 5,000 unit SQ Q12 [facility] Last Admin: 06/09/20 20:21 Dose: 5,000 unit Documented by: Acetaminophen ([facility]) 650 mg in 65 mls @ 130 mls/hr IV Q6HP PRN; Protocol PRN Reason: Per Pain Protocol/Fever > 101 Magnesium Sulfate (Magnesium Sulfate) 2 gm in 50 mls @ 50 mls/hr IV UD PRN PRN Reason: MG = or < 1.7 Piperacillin Sod/Tazobactam (Sod 3.375 gm/ Dextrose) 50 mls @ 100 mls/hr IV Q6H [facility]; Protocol Last Admin: 06/10/20 05:13 Dose: 50 mls/hr Documented by: Norepinephrine Bitartrate 8 mg (/ Sodium Chloride) 250 mls @ 18.75 mls/hr IV Q12HP PRN; Protocol PRN Reason: Hypotension Insulin Glargine (Lantus) 11 unit SQ QPM [facility] Last Admin: 06/09/20 20:21 Dose: 11 unit Documented by: Insulin Human Lispro (Humalog) 0 unit SQ ACHS [facility]; Protocol Last Admin: 06/10/20 07:31 Dose: Not Given Documented by: Iron Carb/Multivit/[employer]/Folic Acid (Multivitamin W/Minerals) 1 tab PO DAILY [facility] Last Admin: 06/09/20 08:11 Dose: Not Given Documented by: Losartan Potassium (Cozaar) 25 mg PO QDAY [facility] Last Admin: 06/09/20 08:10 Dose: 25 mg Documented by: Melatonin (Melatonin 3mg Tablet) 3 mg PO HSP PRN PRN Reason: Insomnia Last Admin: 06/09/20 20:22 Dose: 3 mg Documented by: Methocarbamol (Robaxin) 500 mg PO BIDP PRN PRN Reason: muscle spasm Metoprolol Succinate (Toprol Xl) 25 mg PO DAILY [facility] Last Admin: 06/09/20 08:10 Dose: 25 mg Documented by: Ondansetron HCl (Zofran Odt) 4 mg SL Q4-6HP PRN; Protocol PRN Reason: Nausea And Vomiting Ondansetron HCl (Zofran) 4 mg IV Q4-6HP PRN; Protocol PRN Reason: Nausea And Vomiting Pantoprazole Sodium (Protonix) 40 mg PO QAMAC [facility] Last Admin: 06/09/20 16:20 Dose: 40 mg Documented by: Polyethylene Glycol (Miralax) 17 gm PO DAILYP PRN PRN Reason: Constipation Potassium Chloride (Kdur) 10 meq PO BIDCC [facility] Last Admin: 06/09/20 17:33 Dose: 10 meq Documented by: Potassium Chloride (Klor-Con) 40 meq PO DAILYP PRN PRN Reason: K+ < 3.5 Pramipexole Dihydrochloride (Mirapex) 0.75 mg PO [facility] Last Admin: 06/09/20 20:22 Dose: 0.75 mg Documented by: Senna/Docusate Sodium (Senna Plus Tablet) 1 tab PO [facility] Last Admin: 06/09/20 20:20 Dose: Not Given Documented by: Sitagliptin Phosphate (Januvia) 50 mg PO DAILY [facility] Last Admin: 06/09/20 08:11 Dose: 50 mg Documented by: Sodium Chloride (Saline Flush) 10 ml IV Q8 [facility] Last Admin: 06/10/20 05:13 Dose: 10 ml Documented by: Tamsulosin HCl (Flomax) 0.4 mg PO [facility] Last Admin: 06/09/20 20:21 Dose: 0.4 mg Documented by: A/P Narrative A/P Narrative: A: *Septic shock: 2/2 PNA/RLE cellulitis/?Bacteremia -Resolved *GPC in one bottle of 06/03 blood cx, not Staph or Strep: likely contaminant: -echo no vegetations *Acute Hypoxic resp failure: 2/2 b/l PNA -fluctuates between 1-2L O2 from 6L initially *B/L PNA w/Aspiration: -RVP/COVID negative *PUD/Eso stricture: EGD with eso stricture that was dilated (06/09) and large duodenal ulcer *Oropharyngeal Dysphagia and Esophageal Dysphagia: *Right LE cellulitis: clinically improved on antibiotic coverage/limb elevation *CKD III: *DM type II: *HTN: *Chronic pain: on hydrocodone PLAN: -on Abx d/c after today -Supplemental oxygen, IS/Acapella -dysphagia diet per ST -restarted home ARB/BB -basal and SSI -Dr. Trujillo recs PPI for several months then f/u with him for repeat EGD in 3-months -PT OT/nutrition support -ppx: Heparin no intubation, but CPR ok Time Spent With Patient Time: Total time spent is greater than 50% in coordination of care (as documented) at patient's floor/unit and/or counseling patient: QUALITY Stroke Symptom Onset Unknown: No VTE Deep Vein Thrombosis/Pulmonary Embolism Present on Admission: No
[2020-06-10] MEDS: DOCUSATE SODIUM 100 MG CAPSULE PO SCH ×2 (07:48→20:13)
[2020-06-10] MEDS: PANTOPRAZOLE 40 MG PACKET PO SCH (07:48)
[2020-06-10] MEDS: POTASSIUM CHLORIDE 10 MEQ TABLET PO SCH ×2 (07:48→18:07)
[2020-06-10] MEDS: FLUTICASONE PROPIONATE SPRAY.NAS NS SCH (09:59)
[2020-06-10] MEDS: sitaGLIPtin 50 MG TABLET PO SCH (09:59)
[2020-06-10] MEDS: LACTOBACILLUS 1 CAPSULE PO SCH ×2 (09:59→20:13)
[2020-06-10] MEDS: HEPARIN 5,000 UNIT/ML VIAL SQ SCH ×2 (09:59→20:11)
[2020-06-10] MEDS: LOSARTAN 25 MG TABLET PO SCH (09:59)
[2020-06-10] MEDS: FUROSEMIDE 40 MG TABLET PO SCH (09:59)
[2020-06-10] MEDS: MULTIVIT,THER IRON,CA,FA & MIN 1 TABLET PO SCH (09:59)
[2020-06-10] MEDS: METOPROLOL SUCCINATE 25 MG TAB.XL.24H PO SCH (10:00)
[2020-06-10] MEDS: PRAMIPEXOLE 0.25 MG TABLET PO SCH (20:12)
[2020-06-10] MEDS: INSULIN GLARGINE, HUMAN 1 UNIT/0.01 ML SQ SCH (20:12)
[2020-06-10] MEDS: MELATONIN 3 MG TABLET PO PRN (20:13)
[2020-06-10] MEDS: TAMSULOSIN 0.4 MG CAPSULE PO SCH (20:13)
[2020-06-10] MEDS: hydrOXYzine 25 MG TABLET PO SCH (20:13)
[2020-06-10] MEDS: ATORVASTATIN 10 MG TABLET PO SCH (20:13)
[2020-06-10] MEDS: SENNOSIDES/DOCUSATE SODIUM 1 TAB TABLET PO SCH (20:14)
[2020-06-11] MEDS: 0.9 % SODIUM CHLORIDE 10 ML SYRINGE IV SCH ×3 (04:11→20:50)
[2020-06-11 07:06] LABS: Calcium 9.2 mg/dl (8.6-10.4); Carbon Dioxide 39 mmol/L (22-30); Glomerular Filtration Rate 31; Glucose 77 mg/dL (70-105)
[2020-06-11 07:10] LABS: Blood Urea Nitrogen 29 mg/dl (8-23); Chloride 90 mmol/L (96-108)
[2020-06-11] MEDS: INSULIN LISPRO 1 UNIT/0.01 ML UNIT SQ SCH ×4 (07:54→20:45)
[2020-06-11] MEDS: sitaGLIPtin 50 MG TABLET PO SCH (08:22)
[2020-06-11] MEDS: FUROSEMIDE 40 MG TABLET PO SCH (08:22)
[2020-06-11] MEDS: POTASSIUM CHLORIDE 10 MEQ TABLET PO SCH ×2 (08:22→17:59)
[2020-06-11] MEDS: METOPROLOL SUCCINATE 25 MG TAB.XL.24H PO SCH (08:22)
[2020-06-11] MEDS: PANTOPRAZOLE 40 MG PACKET PO SCH (08:22)
[2020-06-11] MEDS: MULTIVIT,THER IRON,CA,FA & MIN 1 TABLET PO SCH (08:22)
[2020-06-11] MEDS: LACTOBACILLUS 1 CAPSULE PO SCH ×2 (08:22→20:45)
[2020-06-11] MEDS: LOSARTAN 25 MG TABLET PO SCH (08:22)
[2020-06-11] MEDS: FLUTICASONE PROPIONATE SPRAY.NAS NS SCH (08:23)
[2020-06-11] MEDS: DOCUSATE SODIUM 100 MG CAPSULE PO SCH ×2 (08:23→20:15)
[2020-06-11] MEDS: HEPARIN 5,000 UNIT/ML VIAL SQ SCH ×2 (08:38→20:46)
--- NOTE | 2020-06-11 12:23 | Internal Med Progress Note ---
SUBJECTIVE Subjective Patient information: Note initiated : 06/11/20 at 12:16 pm Service Date, if different from initiated Date: [] Patient: Shakira Hou a 84 y/o F admitted on 06/03/20 for dizzines, weakness, UTI, fever. Chief Complaint: [] Interval history: Ms. Hou is a 84 year old F resident of assisted living who presents to the ER with 2 days onset of worsening weakness, dizziness fever and shortness of breath. She was undergoing treatment on ciprofloxacin for UTI. However her symptoms have continued to progress. She also noticed right lower extremity redness and swelling following a spider bite 3 days ago which is now extremely tender to touch and while weightbearing. Initial work-up in the ER was consistent with severe sepsis with a white count of 17,000. She was in respiratory failure requiring 6 L oxygen/bilateral lower lobe pneumonia on CT and pyuria. Patient was promptly started on antibiotics after cultures were drawn. Hospitalist service was consulted. At the time of evaluation patient is alert and oriented. She was able to answer most questions. She is significantly short of breath requiring 6 L oxygen. She endorses to history as above. Denies chest pain, headache, photophobia 06/04-much improved dizziness and weakness however remains on 6 L oxygen. White count improving. Lower extremity redness and swelling much improved, more lucid alert. No overnight telemetry events. Cultures negative so far. 06/[id number] bacteremia. Echocardiogram to rule out infective endocarditis. Source likely bilateral pneumonia. Hypotensive systolics in 70s today. Transfer to ICU start vasopressors. Critically ill. Harbert 2 score 14. On 6 L oxygen. Persistent hypoxia. Patient lethargic and lightheaded indicating endorgan dysfunction. 06/06 Feeling a little better today. Denies shortness of breath at rest. Occasional cough. Off vasopressors. Waiting blood culture results. Decreased oxygen need now on 2 L. Patient reports swallowing difficulties, will get speech therapy involved 06/07 COVID neg. occasional cough and mild dyspnea. Otherwise no complaints. Seen by speech and started on dysphagia diet. Oxygen requirement need fluctuates. 06/08 Patient doing well. Sitting up in chair. She can be on room air at times while sitting up in chair bed but sometimes especially when she is sleeping will requ osmin more oxygen. Have a history of esophageal stricture and speech therapy is concerned that maybe she is having some silent aspiration from that. 06/09 Patient states he feels little better. Denies cough or shortness of breath although is on oxygen mask. Scheduled to get EGD today. Still waiting for identities of the first blood culture that was positive 06/10 Patient has poor sleep last night because she has some anxiety and was worried about staff not being aware of her since she had moved out into the [place] and could not see then nurses like she had been able to in the unit. Otherwise no new complaints. She has occasional cough and denies shortness of breath at rest. 06/11 When I saw this patient in the court room this morning, she was sitting on a chair. She feels fine and does not have any new complaints Her creatinine was elevated yesterday to 1.4 Review of Systems: denies fever/chills/vomiting/chest or abdominal pain/diarrhea. Otherwise see above. Constitutional Vitals: Vital Signs Temp Pulse Resp BP Pulse Ox 97.7 F 74 16 112/66 93 06/11/20 08:00 06/11/20 08:00 06/11/20 08:00 06/11/20 08:00 06/11/20 09:44 Period Temp Pulse Resp BP Sys/Glez Pulse Ox Last 24 Hr 97.7 F-99.3 F 60-78 - 97-150/58-80 92-98 Intake and Output 06/10/20 06/11/20 06/11/20 21:59 05:59 13:59 Intake Total 530 200 240 Output Total 500 350 250 Balance 30 -150 -10 Weight 64.728 kg Intake & Output: Intake & Output 06/10/20 06/11/20 06/11/20 21:59 05:59 13:59 Intake Total 530 200 240 Output Total 500 350 250 Balance 30 -150 -10 Weight 64.728 kg Intake: Nourishment/Supplement quantity 480 (ml) IV 50 Zosyn 3.375 gm In Dextrose 5% 50 in Water 50 ml @ 100 mls/hr IV Q6H [facility] Rx#:[id number] Oral 200 240 Output: Void Amount 500 350 Urine/Stool Mix 250 Other: Meal Dinner Breakfast Percent of Meal Consumed 50% 100% Feeding Ability Independent Nourishment/Supplement name glucerna Urine Appearance Clear Clear Urine Color Bright Yellow Bright Yellow Dark Yellow Stool Size Small Moderate Stool Color Brown Brown Stool Consistency Soft Soft # Bowel Movements 1 Additional findings Additional findings: General: alert and awake, No acute Distress Eyes/N/T: EOMI, Head/Neck: neck supple, CV: RRR, No murmurs, Pulm: better aeration, no wheezing, Abd: soft, nontender, +BS x4 Ext: no clubbing/cyanosis, LE erythema improved, mild b/l LE edema (almost resolved) Neuro: Alert, no focal deficits, moves all extremities, Skin: warm/dry OBJ DATA Labs CBC & Chem 7: 06/10/20 04:42 06/11/20 04:29 Labs: Abnormal Lab Results 06/11/20 06/10/20 06/10/20 04:29 04:42 04:42 Lymph # (Auto) 1.34 L Chloride 90 L 89 L Carbon Dioxide 39 H 39 H BUN 29 H Creatinine 1.5 H 1.4 H Glucose 118 H AST 60 H ALT 50 H Total Protein 5.8 L Albumin 3.1 L Meds: Medications Acetaminophen (Tylenol) 650 mg PO Q4-6HP PRN; Protocol PRN Reason: Per Pain Protocol/Fever > 101 Hydrocodone Bitart/Acetaminophen (Solon 5/325mg) 1 tab PO Q4-6HP PRN; Protocol PRN Reason: Pain Last Admin: 06/10/20 01:19 Dose: 1 tab Documented by: Atorvastatin Calcium (Lipitor) 10 mg PO HS [facility] Last Admin: 06/10/20 20:13 Dose: 10 mg Documented by: Bisacodyl (Dulcolax) 10 mg [place] Q2-3DAYS PRN PRN Reason: Constipation Dextrose (Dextrose 50%) 0 ml IV UD PRN PRN Reason: Hypoglycemia Diagnostic Test (Pha) (Accu-Chek) 1 each FS ACHS [facility] Last Admin: 06/11/20 07:54 Dose: 1 each Documented by: Docusate Sodium (Colace) 100 mg PO BID [facility] Last Admin: 06/11/20 08:23 Dose: Not Given Documented by: Fluticasone Propionate (Flonase) 1 spray NS DAILY [facility] Last Admin: 06/11/20 08:23 Dose: Not Given Documented by: Furosemide (Lasix) 40 mg PO QAM [facility] Last Admin: 06/11/20 08:22 Dose: 40 mg Documented by: Glucose (Insta-Glucose) 15 gm PO PRN PRN PRN Reason: Hypoglycemia Guaifenesin/Codeine Phosphate (Robitussin Ac) 10 ml PO Q4HP PRN PRN Reason: Cough Heparin Sodium (Porcine) (Heparin) 5,000 unit SQ Q12 [facility] Last Admin: 06/11/20 08:38 Dose: 5,000 unit Documented by: Hydroxyzine HCl (Atarax) 25 mg PO HS [facility] Stop: 06/11/20 21:01 Last Admin: 06/10/20 20:13 Dose: 25 mg Documented by: Acetaminophen (Ofirmev) 650 mg in 65 mls @ 130 mls/hr IV Q6HP PRN; Protocol PRN Reason: Per Pain Protocol/Fever > 101 Magnesium Sulfate (Magnesium Sulfate) 2 gm in 50 mls @ 50 mls/hr IV UD PRN PRN Reason: MG = or < 1.7 Norepinephrine Bitartrate 8 mg (/ Sodium Chloride) 250 mls @ 18.75 mls/hr IV Q12HP PRN; Protocol PRN Reason: Hypotension Insulin Glargine (Lantus) 11 unit SQ QPM [facility] Last Admin: 06/10/20 20:12 Dose: 11 unit Documented by: Insulin Human Lispro (Humalog) 0 unit SQ ACHS [facility]; Protocol Last Admin: 06/11/20 07:54 Dose: Not Given Documented by: Iron Carb/Multivit/Receivable Executive/Folic Acid (Multivitamin W/Minerals) 1 tab PO DAILY [facility] Last Admin: 06/11/20 08:22 Dose: 1 tab Documented by: Lactobacillus Rhamnosus (Culturelle) 1 cap PO BID [facility] Last Admin: 06/11/20 08:22 Dose: 1 cap Documented by: Losartan Potassium (Cozaar) 25 mg PO QDAY [facility] Last Admin: 06/11/20 08:22 Dose: 25 mg Documented by: Melatonin (Melatonin 3mg Tablet) 3 mg PO HSP PRN PRN Reason: Insomnia Last Admin: 06/10/20 20:13 Dose: 3 mg Documented by: Methocarbamol (Robaxin) 500 mg PO BIDP PRN PRN Reason: muscle spasm Metoprolol Succinate (Toprol Xl) 25 mg PO DAILY [facility] Last Admin: 06/11/20 08:22 Dose: 25 mg Documented by: Ondansetron HCl (Zofran Odt) 4 mg SL Q4-6HP PRN; Protocol PRN Reason: Nausea And Vomiting Ondansetron HCl (Zofran) 4 mg IV Q4-6HP PRN; Protocol PRN Reason: Nausea And Vomiting Pantoprazole Sodium (Protonix) 40 mg PO QAMAC [facility] Last Admin: 06/11/20 08:22 Dose: 40 mg Documented by: Polyethylene Glycol (Miralax) 17 gm PO DAILYP PRN PRN Reason: Constipation Potassium Chloride (Kdur) 10 meq PO BIDCC [facility] Last Admin: 06/11/20 08:22 Dose: 10 meq Documented by: Potassium Chloride (Klor-Con) 40 meq PO DAILYP PRN PRN Reason: K+ < 3.5 Last Admin: 06/11/20 08:39 Dose: 40 meq Documented by: Pramipexole Dihydrochloride (Mirapex) 0.75 mg PO [facility] Last Admin: 06/10/20 20:12 Dose: 0.75 mg Documented by: Senna/Docusate Sodium (Senna Plus Tablet) 1 tab PO [facility] Last Admin: 06/10/20 20:14 Dose: Not Given Documented by: Sitagliptin Phosphate (Januvia) 50 mg PO DAILY [facility] Last Admin: 06/11/20 08:22 Dose: 50 mg Documented by: Sodium Chloride (Saline Flush) 10 ml IV Q8 [facility] Last Admin: 06/11/20 04:11 Dose: 10 ml Documented by: Tamsulosin HCl (Flomax) 0.4 mg PO [facility] Last Admin: 06/10/20 20:13 Dose: 0.4 mg Documented by: A/P Narrative A/P Narrative: *Septic shock: 2/2 PNA/RLE cellulitis/?Bacteremia -Resolved *GPC in one bottle of 06/03 blood cx, not Staph or Strep: likely contaminant: -echo no vegetations *Acute Hypoxic resp failure: 2/2 b/l PNA -Now on LL O2 from 6L initially *B/L PNA w/Aspiration: -RVP/COVID negative *PUD/Eso stricture: EGD with eso stricture that was dilated (06/09) and large duodenal ulcer *Oropharyngeal Dysphagia and Esophageal Dysphagia: *Right LE cellulitis: clinically improved on antibiotic coverage/limb elevation *JORGE on CKD III: *DM type II: *HTN: *Chronic pain: on hydrocodone PLAN: -on Abx d/c yesterday -Supplemental oxygen, IS/Acapella -dysphagia diet per ST -restarted home ARB/BB -basal and SSI -Dr. Trujillo recs PPI for several months then f/u with him for repeat EGD in 3-months -PT OT/nutrition support -ppx: Heparin no intubation, but CPR ok Deposition: SNF, possibly tomorrow f/u with pcp, Dr. Trujillo, Time Spent With Patient Time: Total time spent is greater than 50% in coordination of care (as documented) at patient's floor/unit and/or counseling patient: QUALITY Stroke Symptom Onset Unknown: No VTE Deep Vein Thrombosis/Pulmonary Embolism Present on Admission: No
[2020-06-11 13:11] LABS: Basophils # (Auto) 0.01 K/mcL (0.00-0.30); Basophils % (Auto) 0.1 % (0.0-2.0); Eosinophils # (Auto) 0.24 K/mcL (0.00-0.70); Eosinophils % (Auto) 2.7 % (0.0-7.0); Granulocytes % (Auto) 76.1 % (38.0-78.0); Hematocrit 37.6 % (34.1-44.9); Hemoglobin 12.4 g/dL (11.2-15.7); Lymphocytes # (Auto) 1.21 K/mcL (1.50-4.80); Lymphocytes % (Auto) 13.8 % (15.5-49.0); Mean Cell Volume 94.5 fL (80.0-100.0); Monocytes # (Auto) 0.64 K/mcL (0.10-0.90); Monocytes % (Auto) 7.3 % (1.0-12.0); Platelet Count 221 K/mcL (140-440); RBC 3.98 M/mcL (3.59-5.38); Red Cell Distribution Width 14.6 % (11.5-14.5); WBC 8.8 K/mcL (4.50-11.00)
[2020-06-11 13:35] LABS: ALT/SGPT 35 U/l (0-40); AST/SGOT 31 U/l (0-37); Albumin 3.4 gm/dL (3.2-5.2); Albumin/Globulin Ratio 1.3 (1.0-2.3); Alkaline Phosphatase 61 U/L (39-117); Bilirubin,Total 0.4 mg/dL (0.0-1.0); Blood Urea Nitrogen 32 mg/dl (8-23); Calcium 8.9 mg/dl (8.6-10.4); Carbon Dioxide 36 mmol/L (22-30); Chloride 88 mmol/L (96-108); Globulin 2.7 gm/dL (2.2-3.7); Glomerular Filtration Rate 34; Glucose 255 mg/dL (70-105)
[2020-06-11] MEDS: ATORVASTATIN 10 MG TABLET PO SCH (20:45)
[2020-06-11] MEDS: INSULIN GLARGINE, HUMAN 1 UNIT/0.01 ML SQ SCH (20:45)
[2020-06-11] MEDS: hydrOXYzine 25 MG TABLET PO SCH (20:45)
[2020-06-11] MEDS: PRAMIPEXOLE 0.25 MG TABLET PO SCH (20:46)
[2020-06-11] MEDS: TAMSULOSIN 0.4 MG CAPSULE PO SCH (20:46)
[2020-06-11] MEDS: SENNOSIDES/DOCUSATE SODIUM 1 TAB TABLET PO SCH (20:47)
[2020-06-11] MEDS ORDERED: 0.9 % SODIUM CHLORIDE 1,000 ML IV SCH (21:45)
[2020-06-12] MEDS: 0.9 % SODIUM CHLORIDE 10 ML SYRINGE IV SCH ×2 (05:39→14:53)
[2020-06-12 06:13] LABS: Basophils # (Auto) 0.03 K/mcL (0.00-0.30); Basophils % (Auto) 0.4 % (0.0-2.0); Eosinophils # (Auto) 0.24 K/mcL (0.00-0.70); Eosinophils % (Auto) 3.1 % (0.0-7.0); Granulocytes % (Auto) 69.7 % (38.0-78.0); Hematocrit 38.9 % (34.1-44.9); Hemoglobin 12.2 g/dL (11.2-15.7); Lymphocytes # (Auto) 1.58 K/mcL (1.50-4.80); Lymphocytes % (Auto) 20.2 % (15.5-49.0); Mean Cell Volume 95.8 fL (80.0-100.0); Mean Corpuscular HGB Conc 31.4 g/dL (31.0-36.0); Mean Platelet Volume 10.3 fL (7.4-10.4); Monocytes # (Auto) 0.52 K/mcL (0.10-0.90); Monocytes % (Auto) 6.6 % (1.0-12.0); Platelet Count 227 K/mcL (140-440); RBC 4.06 M/mcL (3.59-5.38); Red Cell Distribution Width 14.8 % (11.5-14.5); WBC 7.8 K/mcL (4.50-11.00)
[2020-06-12 06:20] LABS: ALT/SGPT 29 U/l (0-40); AST/SGOT 24 U/l (0-37); Albumin 3.1 gm/dL (3.2-5.2); Alkaline Phosphatase 59 U/L (39-117); Bilirubin,Total 0.6 mg/dL (0.0-1.0); Blood Urea Nitrogen 33 mg/dl (8-23); Calcium 8.9 mg/dl (8.6-10.4); Carbon Dioxide 32 mmol/L (22-30); Globulin 3.1 gm/dL (2.2-3.7); Glomerular Filtration Rate 41; Glucose 152 mg/dL (70-105)
[2020-06-12 06:21] LABS: Chloride 92 mmol/L (96-108)
[2020-06-12] MEDS: MULTIVIT,THER IRON,CA,FA & MIN 1 TABLET PO SCH (08:07)
[2020-06-12] MEDS: INSULIN LISPRO 1 UNIT/0.01 ML UNIT SQ SCH ×2 (08:07→11:56)
[2020-06-12] MEDS: PANTOPRAZOLE 40 MG PACKET PO SCH (08:07)
[2020-06-12] MEDS: METOPROLOL SUCCINATE 25 MG TAB.XL.24H PO SCH (08:07)
[2020-06-12] MEDS: LACTOBACILLUS 1 CAPSULE PO SCH (08:07)
[2020-06-12] MEDS: POTASSIUM CHLORIDE 10 MEQ TABLET PO SCH (08:07)
[2020-06-12] MEDS: sitaGLIPtin 50 MG TABLET PO SCH (08:07)
[2020-06-12] MEDS: DOCUSATE SODIUM 100 MG CAPSULE PO SCH (08:08)
[2020-06-12] MEDS: HEPARIN 5,000 UNIT/ML VIAL SQ SCH (08:08)
[2020-06-12] MEDS: FLUTICASONE PROPIONATE SPRAY.NAS NS SCH (08:08)
[2020-06-12] MEDS: LOSARTAN 25 MG TABLET PO SCH (08:08)
--- NOTE | 2020-06-12 12:15 | Surgical Pathology Report ---
HISTOLOGY SPECIMEN MICROSCOPIC DIAGNOSIS STOMACH, ANTRUM, BIOPSY: -- CHRONIC GASTRITIS, MILD, WITHOUT ACTIVITY. -- NO HELICOBACTER ORGANISMS IDENTIFIED ON ALCIAN YELLOW STAIN (ADEQUATE TECHNICAL CONTROL). (DMT:sln) CLINICAL HISTORY Reflux; dysphagia. PROCEDURAL IMPRESSION Gastritis; duodenal ulcer; esophagitis; stricture EG junction. GROSS DESCRIPTION Received in formalin labeled designated gastric antrum biopsy, are four landa tissue fragments from 0.2 to 0.4 cm. Entirely submitted in one cassette. (SCB:adj) Electronically Signed by: Teodoro Andrade M.D.
--- NOTE | 2020-06-12 14:48 | Discharge Summary ---
Discharge Provider Provider Patient information: Note initiated : 06/12/20 at 2:36 pm Service Date, if different from initiated Date: [] Patient: Shakira Hou 84 y/o F admitted on 06/03/20 for dizzines, weakness, UTI, fever. Chief Complaint: [] Date of admission: 06/03/20 22:42 Discharge date: 06/12/20 Primary care physician: Ale Long PA-C Consults: 06/03/20 Consult to Physician [CONS] Stat Comment: Consulting Provider: Jose Vicente Reason For Exam: Physician to Consult 06/08/20 09:47 Consult to Physician [CONS] Routine Comment: Consulting Provider: Parvez Trujillo Reason For Exam: Physician to Consult Discharge Meds Discharge Medications Home Medications fluticasone propionate 50 mcg/actuation nasal spray,suspension 2 spray INTRANASAL QDAY #16 g 05/15/20 [Rx Confirmed 06/03/20 Last Taken Unknown] hydrocodone 5 mg-acetaminophen 325 mg tablet 1 tab PO Q4-6H PRN 05/15/20 [History Confirmed 06/03/20 Last Taken Unknown] blood sugar diagnostic, drum #1 05/30/20 [History Confirmed 06/03/20 Last Taken Unknown] blood-glucose meter, drum-type #1 05/30/20 [History Confirmed 06/03/20 Last Taken Unknown] insulin glargine 100 unit/mL subcutaneous solution 11 unit SUBCUT QPM ml 05/30/20 [History Confirmed 06/03/20 Last Taken Unknown] methocarbamol 500 mg tablet 500 mg PO BID PRN tab 05/30/20 [History Confirmed 06/03/20 Last Taken Unknown] metoprolol succinate 25 mg tablet,extended release 24 hr 25 mg PO QDAY 05/30/20 [History Confirmed 06/03/20 Last Taken Unknown] pen needle, diabetic 31 gauge x 3/16" #50 each 05/30/20 [Rx Confirmed 06/03/20 Last Taken Unknown] atorvastatin 10 mg tablet 10 mg PO QHS #90 tab 06/01/20 [Rx Confirmed 06/03/20 Last Taken Unknown] pramipexole 1 mg tablet 1 mg PO HS #90 tab 06/01/20 [Rx Confirmed 06/03/20 Last Taken Unknown] tamsulosin 0.4 mg capsule 0.4 mg PO HS #90 cap 06/01/20 [Rx Confirmed 06/03/20 Last Taken Unknown] pantoprazole [Protonix] 40 mg PO QAMAC #90 ea 06/12/20 [Rx Last Taken Unknown] sitagliptin [Januvia] 50 mg PO DAILY #30 tab 06/12/20 [Rx Last Taken Unknown] COURSE Hospital Course Hospital course: Septic shock: 2/2 PNA/RLE cellulitis/?Bacteremia -Resolved *GPC in one bottle of 06/03 blood cx, not Staph or Strep: likely contaminant: -echo no vegetations *Acute Hypoxic resp failure: 2/2 b/l PNA -Now on 1 L O2 from 6L initially *B/L PNA w/Aspiration: -RVP/COVID negative -completed abx *PUD/Eso stricture: EGD with eso stricture that was dilated (06/09) and large duodenal ulcer STOMACH, ANTRUM, BIOPSY: -- CHRONIC GASTRITIS, MILD, WITHOUT ACTIVITY. -- NO HELICOBACTER ORGANISMS IDENTIFIED ON ALCIAN YELLOW STAIN (ADEQUATE TECHNICAL CONTROL). -Dr. Trujillo recs PPI for several months then f/u with him for repeat EGD in 3-months *Oropharyngeal Dysphagia and Esophageal Dysphagia: continue dysphagia diet and f/u ST *Right LE cellulitis: clinically resolved *JORGE on CKD III: Creatinine trending donw to 1.2 today. avoid nephrotoxic meds. home meds lasix and losartan are now on hold. repeat renal function in 3 days. *DM type II: *HTN: *Chronic pain: Interval history: Ms. Hou is a 84 year old F resident of assisted living who presents to the ER with 2 days onset of worsening weakness, dizziness fever and shortness of breath. She was undergoing treatment on ciprofloxacin for UTI. However her symptoms have continued to progress. She also noticed right lower extremity redness and swelling following a spider bite 3 days ago which is now extremely tender to touch and while weightbearing. Initial work-up in the ER was consistent with severe sepsis with a white count of 17,000. She was in respiratory failure requiring 6 L oxygen/bilateral lower lobe pneumonia on CT and pyuria. Patient was promptly started on antibiotics after cultures were drawn. Hospitalist service was consulted. At the time of evaluation patient is alert and oriented. She was able to answer most questions. She is significantly short of breath requiring 6 L oxygen. She endorses to history as above. Denies chest pain, headache, photophobia 06/04-much improved dizziness and weakness however remains on 6 L oxygen. White count improving. Lower extremity redness and swelling much improved, more lucid alert. No overnight telemetry events. Cultures negative so far. 06/0560-[id number] bacteremia. Echocardiogram to rule out infective endocarditis. Source likely bilateral pneumonia. Hypotensive systolics in 70s today. Transfer to ICU start vasopressors. Critically ill. Young 2 score 14. On 6 L oxygen. Persistent hypoxia. Patient lethargic and lightheaded indicating endorgan dysfunction. 06/06 Feeling a little better today. Denies shortness of breath at rest. Occasional cough. Off vasopressors. Waiting blood culture results. Decreased oxygen need now on 2 L. Patient reports swallowing difficulties, will get speech therapy involved 06/07 COVID neg. occasional cough and mild dyspnea. Otherwise no complaints. Seen by speech and started on dysphagia diet. Oxygen requirement need fluctuates. 06/08 Patient doing well. Sitting up in chair. She can be on room air at times while sitting up in chair bed but sometimes especially when she is sleeping will require more oxygen. Have a history of esophageal stricture and speech therapy is concerned that maybe she is having some silent aspiration from that. 06/09 Patient states he feels little better. Denies cough or shortness of breath although is on oxygen mask. Scheduled to get EGD today. Still waiting for identities of the first blood culture that was positive 06/10 Patient has poor sleep last night because she has some anxiety and was worried about staff not being aware of her since she had moved out into the [place] and co uld not see then nurses like she had been able to in the unit. Otherwise no new complaints. She has occasional cough and denies shortness of breath at rest. 06/11 When I saw this patient in the court room this morning, she was sitting on a chair. She feels fine and does not have any new complaints Her creatinine was elevated yesterday to 1.4 06/12 Pt does not have any complaints and vital signs are stable and acceptable. She will be discharged to SNF today to follow with the PCP, Dr. Trujillo and . her creatinine 1.2 today. She needs to repeat renal function in 3 days and make sure creatinine comes back to normal. Call PCP or staff at custodial for medical issues. Discharge diagnosis: Acute Hypoxic resp failure and pneumonia Time Spent with Patient Time attestation: Total time spent providing and/or coordinating discharge services: EXAM Constitutional Vitals: Temp Pulse Resp BP Pulse Ox 97.9 F 71 16 103/56 91 06/12/20 12:00 06/12/20 12:00 06/12/20 12:00 06/12/20 12:00 06/12/20 12:00 Additional findings Additional findings: General: alert and awake, No acute Distress Eyes/N/T: EOMI, Head/Neck: neck supple, CV: RRR, No murmurs, Pulm: better aeration, no wheezing, Abd: soft, nontender, +BS x4 Ext: no clubbing/cyanosis, LE erythema improved, mild b/l LE edema (almost resolved) Neuro: Alert, no focal deficits, moves all extremities, Skin: warm/dry Discharge Data Data Completed and Pending Labs on day of discharge: Labs from last 24 hours 06/12/20 06/12/20 04:32 04:32 WBC 7.8 RBC 4.06 Hgb 12.2 Hct 38.9 MCV 95.8 MCH 30.0 MCHC 31.4 RDW 14.8 H Plt Count 227 MPV 10.3 Gran % 69.7 Lymph % (Auto) 20.2 [place] % (Auto) 6.6 Eos % (Auto) 3.1 Baso % (Auto) 0.4 Gran # 5.47 Lymph # (Auto) 1.58 [place] # (Auto) 0.52 Eos # (Auto) 0.24 Baso # (Auto) 0.03 Sodium 135 Potassium 4.3 Chloride 92 L Carbon Dioxide 32 H Anion Gap 11.0 BUN 33 H Creatinine 1.2 H GFR Calculation 41 Glucose 152 H Calcium 8.9 Total Bilirubin 0.6 AST 24 ALT 29 Alkaline Phosphatase 59 Total Protein 6.2 Albumin 3.1 L Globulin 3.1 Albumin/Globulin Ratio 1.0 Preliminary micro results at discharge 06/11/20 13:19 Sputum Culture - Preliminary Sputum - Expectorated 06/03/20 18:35 Blood Culture - Preliminary Blood Gram positive cocci Discharge Plan Patient/Caregiver Discharge Instructions Activity: increase activity as tolerated Diet: Dysphagia Level 6 Soft & Bite-Sized Foods and Dysphagia Level 5 Minced & Moist Foods Prescriptions: New Januvia 50 mg Tablet 50 mg PO DAILY Qty: 30 RF: 0 Protonix [address] For Susp In Packet 40 mg PO QAMAC Qty: 90 RF: 0 Continued insulin glargine 100 unit/mL solution 11 unit subcut QPM RF: 0 methocarbamol 500 mg tablet 500 mg PO BID PRN (Reason: muscle spasm) RF: 0 metoprolol succinate 25 mg tablet extended release 24 hr 25 mg PO QDAY RF: 0 atorvastatin 10 mg tablet 10 mg PO QHS Qty: 90 RF: 0 pramipexole 1 mg tablet 1 mg PO HS Qty: 90 RF: 0 tamsulosin 0.4 mg capsule 0.4 mg PO HS Qty: 90 RF: 0 hydrocodone-acetaminophen 5-325 mg tablet 1 tab PO Q4-6H PRN (Reason: Pain) RF: 0 fluticasone propionate [Flonase Allergy Relief] 50 mcg/actuation spray,suspension 2 spray INTRANASAL QDAY Qty: 16 RF: 3 Discontinued furosemide 40 mg tablet 40 mg PO QAM RF: 0 potassium chloride 10 mEq tablet extended release 10 meq PO BID RF: 0 losartan 25 mg tablet 25 mg PO QDAY Qty: 90 RF: 0 No Action (DME) pen needle, diabetic [BD Ultra-Fine Mini Pen Needle] 31 gauge x 3/16" needle See Rx Instructions .ROUTE .MEDSUPPLY Qty: 50 RF: 0 (DME) blood-glucose meter, drum-type Kit See Rx Instructions .ROUTE .MEDSUPPLY Qty: 1 RF: 0 (DME) blood sugar diagnostic, drum Strip See Rx Instructions .ROUTE .MEDSUPPLY Qty: 1 RF: 0 Other Ambulatory Orders: Complete Blood Count (Routine) Timeframe: 3 Days Facility: [facility] - Location: Laboratory Ordered By: Rubi Loja Comprehensive Metabolic Panel (Routine) Timeframe: 3 Days Facility: [facility] - Location: Laboratory Ordered By: Rubi Loja OT Discharge Order (Routine) Location: None Selected Ordered By: Rubi Loja Physical Therapy at Discharge - General (Routine) Location: None Selected Ordered By: Rubi Loja Follow Up Plan Follow up with: Unknown [Outside] (Speech pathologist in 3 days) Ale Long PA-C [Primary Care Provider] - Parvez Trujillo MD [Physician] - (in one week) Patient Disposition: Xfer SNF Prognosis: Serious Rehab Potential: Fair I certify that the patient requires SNF services: Yes Discharge Orders: Discharge Order (Routine); Ordered 06/12/20 Ordered By: Rubi MACIEL VTE Deep Vein Thrombosis/Pulmonary Embolism Present on Admission: No
== END 2020-06-12 16:01 | DRG 871 ==
LOC: ED 17:38 → ICU 21:41 → MEDSUR 06-08 15:39
PROVIDERS: ADMIT Internal Medicine; ATTEND Internal Medicine

== ENCOUNTER 2020-08-26 16:36 | Inpatient (IN) ==
[2020-08-26] MEDS ORDERED: IOPAMIDOL 100 ML BOTTLE IV ONE (16:37)
[2020-08-26] MEDS ORDERED: 0.9 % SODIUM CHLORIDE 1,000 ML IV ONE (17:22)
[2020-08-26] MEDS ORDERED: LORazepam 0.5 MG TABLET PO ONE (17:24)
--- NOTE | 2020-08-26 17:25 | Emergency Department Note ---
HPI General Chief complaint: Anxiety Stated complaint: anxiety Time Seen by Provider: 08/26/20 17:01 Source: patient Mode of arrival: ambulatory Limitations: no limitations History of Present Illness HPI Narrative: This is an 85-year-old female patient who was brought in from [facility] with complaints of increasing anxiety. Upon arrival EMS noted a temperature of 100.1 with tachycardia. When she arrived in the emergency department her heart rate is 104 with a temperature of 101.5 Fahre nheit. She has been complaining of fevers and chills, and generally not feeling well for about a week. She also notes some left knee pain that is been going on for about the same amount of time. She was admitted 06/03/2020 to 06/12/2020 to [facility] for sepsis. This was thought to be from a bilateral lower lobe pneumonia versus a right lower extremity cellulitis. She had gram-positive bacteremia at that time, but this was only in 1/2 blood cultures, so this was thought to be contaminant. She had an echocardiogram that was negative for endocarditis at that time. She was on broad-spectrum antibiotics with Zosyn and vancomycin, recovered and was discharged to home. She was admitted a second time from 08/05/20 to 08/08/20 at [facility] for a second round of sepsis, but this time related to urinary tract infection. She was initially treated with Zosyn and then transitioned to Rocephin with culture data showing E. coli sensitive to Rocephin. She was discharged to a SNF on Ceftin p.o. Patient currently denies dysuria, or urinary urgency or frequency. She denies chest pain, she does complain of some increasing chest congestion and cough. She has not been requiring oxygen at home. She was Covid negative earlier this month. Related Data Home Medications Medication Instructions Recorded Confirmed blood sugar diagnostic, drum #1 05/30/20 08/10/20 blood-glucose meter, drum-type #1 05/30/20 08/10/20 acetaminophen 325 mg tablet 650 mg PO Q6H PRN tab 07/10/20 08/10/20 Previous Rx's Medication Instructions Recorded pen needle, diabetic 31 gauge x #50 each 05/30/20 3/16" hydrocodone-acetaminophen [Murdock] 1 tab PO Q4-6HP PRN #12 tab 06/12/20 atorvastatin 10 mg tablet 10 mg PO QHS #90 tab 07/04/20 fluticasone propionate 50 2 spray INTRANASAL QDAY #16 g 07/04/20 mcg/actuation nasal spray,suspension insulin glargine 100 unit/mL 11 unit SUBCUT QPM #10 ml 07/04/20 subcutaneous solution methocarbamol 500 mg tablet 500 mg PO BID PRN #60 tab 07/04/20 metoprolol succinate 25 mg 25 mg PO QDAY #30 tab 07/04/20 tablet,extended release 24 hr pramipexole 1 mg tablet 1 mg PO HS #90 tab 07/04/20 tamsulosin 0.4 mg capsule 0.4 mg PO HS #90 cap 07/04/20 citalopram 10 mg tablet 10 mg PO QDAY #30 tab 07/10/20 insulin lispro 100 unit/mL See Rx Instructions SUBCUT .qac 07/18/20 subcutaneous solution #10 ml pantoprazole 40 mg granules 40 mg PO QAMAC #90 ea 08/18/20 delayed-release for susp in packet sitagliptin 50 mg tablet 50 mg PO DAILY #30 tab 08/18/20 Allergies Allergy/AdvReac Type Severity Reaction Status Date / Time gabapentin AdvReac Mild LEG Verified 08/10/20 14:02 SWELLING Review of Systems ROS ROS Narrative: Narrative: All systems ED: reviewed and negative except as stated. [facility] Narrative Patient History Narrative: Narrative: Medical/Surgical/Family History All Active Problems (Updated 08/26/20 @ 21:36 by Aga Sosa PA-C) Sepsis (Acute) Peninsula of foot (Acute) Anorexia (Acute) Chest congestion (Acute) Acute UTI (Acute) Fever (Acute) Anxiety (Acute) Pneumonia (Acute) Sepsis (Acute) Acute respiratory failure with hypoxia (Acute) Cellulitis of leg without foot, right (Acute) Disorder of kidney and ureter (Acute) Renal osteodystrophy (Acute) Vitamin D deficiency (Acute) Anemia of renal disease (Acute) Thoracic radiculitis (Acute) Vertigo (Acute) Acquired absence of other left toe(s) (Acute) Acquired absence of other right toe(s) (Acute) Other hammer toe(s) (acquired), left foot (Acute) Other hammer toe(s) (acquired), right foot (Acute) Hypercholesterolemia (Acute) Chronic kidney disease, stage 3 (moderate) (Acute) Intervertebral disc disorders with radiculopathy, thoracolumbar region (Acute) Menopausal and female climacteric states (Acute) Unspecified osteoarthritis, unspecified site (Acute) Gastro-esophageal reflux disease without esophagitis (Acute) Radiculopathy, lumbosacral region (Acute) Low back pain (Acute) Mixed hyperlipidemia (Acute) History of bunionectomy (Acute) History of total right knee replacement (Acute ~2014) History of total left knee replacement (Acute ~2007) History of surgical procedure (Acute ~2003) History of hysterectomy (Acute ~2003) Vitiligo (Acute) Restless leg (Acute) Proteinuria (Acute) Schatzki's ring (Acute) Osteoporosis (Acute) Depression (Acute) Lower abdominal pain, unspecified (Acute) Other visual disturbances (Acute) Cardiac arrhythmia, unspecified (Acute) Dorsopathy, unspecified (Acute) Dizziness and giddiness (Acute) 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) Other idiopathic scoliosis, site unspecified (Acute) Type 1 diabetes mellitus with hypoglycemia without coma, with long-term current use of insulin (Acute) Type 1 diabetes mellitus with hyperglycemia, without long-term current use of insulin (Acute) Pure hypercholesterolemia (Acute) 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 mellitus (Acute) Insomnia, unspecified (Acute) Edema, unspecified (Acute) Unspecified kidney failure (Acute) Type 1 diabetes mellitus without complications (Acute) Eustachian tube dysfunction (Acute) Poor balance (Acute) 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) History of surgery (Chronic) Radiculopathy, thoracic region (Chronic) Fall (Acute) History of CVA (cerebrovascular accident) (Chronic) History of nephrectomy, right (Chronic) Chronic abdominal pain (Chronic) Hypertension, essential (Chronic) Diabetes mellitus, type 2 (Chronic) Xerotic eczema (Acute) Abdominal pain (Acute) Hypoglycemia (Acute) UTI (urinary tract infection) (Acute) Medical History Acquired absence of other left toe(s) (Acute) Acquired absence of other right toe(s) (Acute) Anemia of renal disease (Acute) Cardiac arrhythmia, unspecified (Acute) Chronic abdominal pain (Chronic) Chronic kidney disease, stage 3 (moderate) (Acute) Depression (Acute) Diabetes mellitus, type 2 (Chronic) 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 mellitus (Acute) Disorder of kidney and ureter (Acute) Dizziness and giddiness (Acute) Dorsopathy, unspecified (Acute) Edema, unspecified (Acute) Gastro-esophageal reflux disease without esophagitis (Acute) History of CVA (cerebrovascular accident) (Chronic) Seen on MRI Hypercholesterolemia (Acute) Hypertension, essential (Chronic) Insomnia, unspecified (Acute) Intervertebral disc disorders with radiculopathy, thoracolumbar region (Acute) Low back pain (Acute) Lower abdominal pain, unspecified (Acute) Menopausal and female climacteric states (Acute) Mixed hyperlipidemia (Acute) Osteoporosis (Acute) Other hammer toe(s) (acquired), left foot (Acute) Other hammer toe(s) (acquired), right foot (Acute) Other idiopathic scoliosis, site unspecified (Acute) Other visual disturbances (Acute) Proteinuria (Acute) Pure hypercholesterolemia (Acute) Radiculopathy, lumbosacral region (Acute) Radiculopathy, thoracic region (Chronic) Renal cell cancer (Resolved) Right; status post nephrectomy Renal osteodystrophy (Acute) Restless leg (Acute) Schatzki's ring (Acute) Thoracic radiculitis (Acute) 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) Type 1 diabetes mellitus with hyperglycemia, without long-term current use of insulin (Acute) Type 1 diabetes mellitus with hypoglycemia without coma, with long-term current use of insulin (Acute) Type 1 diabetes mellitus without complications (Acute) Unspecified kidney failure (Acute) Unspecified osteoarthritis, unspecified site (Acute) Vertigo (Acute) Vitamin D deficiency (Acute) Vitiligo (Acute) Surgical History History of bunionectomy (Acute) Left foot, and right foot 2017 History of hysterectomy (Acute ~2003) poor outcome History of nephrectomy, right (Chronic) History of surgery (Chronic) TESI #1 T9-10 w/o sed 07/07/19 History of surgical procedure (Acute ~2003) urethra surgery-ureter reimplantation, damaged in hysterectomy History of total left knee replacement (Acute ~2007) History of total right knee replacement (Acute ~2014) Total knee replacement status (Acute) Family History Father , 81 yrs Emphysema, unspecified Stroke Brother Heart disease Type 1 diabetes Social History Smoking Status: Never smoker Alcohol Intake Frequency: a few times a month Substance Use: does not use Exam Narrative Narrative: Narrative: General Limitations: no limitations General appearance: Present alert, in no apparent distress and nontoxic Head Head: Present normocephalic and normal inspection Eye Eye: Present PERRL and EOMI Respiratory Respiratory: Present other (Rhonchi noted in the bilateral lower lung bases) Cardiovascular Cardiovascular: Present tachycardia and normal heart sounds Adbominal Abdominal: Present soft and normal bowel sounds; Absent tenderness, organomegaly, Wyatt's sign, tenderness at McBurney's Point and mass Extremities Extremities: Present full ROM, joint swelling (Left knee) and other (Left knee is warm to the touch. She has painful active range of motion.) Neurological Neurological: Present alert, oriented X3 and CN II-XII intact Skin Skin: Present warm (WNL), dry and erythema (Left knee joint) Course Course Course Narrative: 85-year-old female resents with sepsis. She is tachycardic and febrile and meets SIRS criteria. Reevaluation(s) Reevaluation #1: Sepsis work-up to include chest x-ray, CBC with manual differential, lactic acid, CRP, sed rate, procalcitonin, and blood cultures x2 Initial [id number] urine dipstick is negative for infection Rapid Covid screen is negative Reevaluation #2: Chest x-ray without infiltrates and unchanged from previous chest x-ray dated 08/04/2020 Urinalysis is negative for UTI Patient is now febrile to 102.3, she has been given [facility] Dr. Anguiano in to examine the patient and he does not feel that this is related to knee prosthetic infection at this time given no significant pain with range of motion or joint swelling or erythema. CRP, sed rate, procalcitonin are pending Reza CT scan with contrast to look for source Reevaluation #3: CT with contrast of the chest abdomen and pelvis reveals no etiology for source of infection. She does have bilateral inguinal lymphadenopathy. She also has left hydronephrosis but no obstructing stone. This is thought to be secondary to distended bladder. -Grajeda catheter has been placed and she has robust urine output -Rapid Covid screen is negative -CRP is within normal limits, procalcitonin is elevated at 0.37 Additional Reevaluation(s): EKG is obtained and shows normal sinus rhythm with intermittent SVT. This is changed from previous EKG in June where SVT is not present. There is no acute ST abnormalities. Vital Signs Vital signs: Vital Signs Temperature 101.5 F H 08/26/20 16:39 Pulse Rate 121 H 08/26/20 16:39 Respiratory Rate 24 H 08/26/20 16:39 Blood Pressure 171/91 08/26/20 16:39 Pulse Oximetry (%) 84 L 08/26/20 16:39 Temperature 99.1 F H 08/26/20 19:06 Pulse Rate 82 08/26/20 20:31 Respiratory Rate 22 08/26/20 20:31 Blood Pressure 132/79 08/26/20 20:46 Pulse Oximetry (%) 94 08/26/20 20:46 MDM MDM Narrative Medical decision making narrative: 1. Sepsis: Unclear source at this time. Patient has been treated in the most recent past with vancomycin, Zosyn, Rocephin, and Ceftin. She continues to be febrile and has significant leukocytosis with elevated procalcitonin on her lab work today. Urinalysis is unremarkable. Lactic acid within normal limits. -Patient meets criteria for admission. Hospitalist has been contacted, Dr. Strickland will be admitting. -Start broad-spectrum antibiotics, vancomycin/Zosyn -MRSA swab is pending -Covid NAAT screen pending 2. SVT: She is not symptomatic from this at this time. Patient states that she has history of arrhythmia. She is on metoprolol. 3. History of urinary retention on tamsulosin. CT scan shows significantly distended bladder. Grajeda catheter is been placed. 4. IDDM: Patient is on glargine and lispro. Blood sugars have been in the 150s during this evaluation. 5. Anxiety/depression: She has acute anxiety episode in the ED today. She was given 0.5 mg of IV Ativan and responded well. Lab Data Result diagrams: 08/26/20 17:48 08/26/20 17:48 Labs: Lab Results 08/26/20 08/26/20 08/26/20 Range/Units 17:48 17:48 17:48 WBC 15.0 H (4.5-11.0) K/mcL RBC 4.08 (4.00-5.20) M/mcL Hgb 12.2 (12.0-15.0) g/dL Hct 37.1 (36.0-48.0) % MCV 90.9 (80.0-100.0) fL MCH 29.9 (26.0-34.0) pg MCHC 32.9 (31.0-36.0) g/dL RDW 15.0 H (11.5-14.5) % Plt Count 169 (140-440) K/mcL MPV 10.1 (7.4-10.4) fL Neut % (Auto) 90.9 H (38.0-78.0) % Lymph % (Auto) 4.5 L (15.0-49.0) % Christian % (Auto) 4.4 (1.0-12.0) % Eos % (Auto) 0.1 (0.0-7.0) % Baso % (Auto) 0.1 (0.0-2.0) % Lymph # (Auto) 0.67 L (1.50-4.80) K/mcL Christian # (Auto) 0.66 (0.10-0.90) K/mcL Eos # (Auto) 0.02 (0.00-0.70) K/mcL Baso # (Auto) 0.02 (0.00-0.20) K/mcL Absolute Neutrophils 13.63 H (1.80-8.00) K/mcL ESR 15 (0-20) mm/hr VBG Lactic Acid 1.0 (0.5-2.0) mmol/L Sodium 132 L (133-145) mmol/L Potassium 3.7 (3.3-5.1) mmol/L Chloride 96 (96-108) mmol/L Carbon Dioxide 26 (22-30) mmol/L Anion Gap 10.0 (8.0-16.0) BUN 16 (8-23) mg/dL Creatinine 1.0 (0.6-1.1) mg/dL GFR Calculation 51 Glucose 153 H (70-105) mg/dL Calcium 9.2 (8.6-10.4) mg/dL Total Bilirubin 0.8 (0.1-1.0) mg/dL AST 23 (<32) U/L ALT 17 (<40) U/L Alkaline Phosphatase 81 (39-117) U/L C-Reactive Protein 0.30 (0.03-0.80) mg/dL Total Protein 6.8 (5.9-8.4) gm/dL Albumin 3.8 (3.2-5.2) gm/dL Globulin 3.0 (2.2-3.7) gm/dL Albumin/Globulin Ratio 1.3 (1.0-2.3) Procalcitonin (<0.10) ng/mL Urine Color Urine Appearance (Clear) Urine pH (5.0-9.0) Ur Specific Milton (1.000-1.035) Urine Protein (Negative) mg/dL Urine Glucose (UA) (Negative) mg/dL Urine Ketones (Negative) mg/dL Urine Occult Blood (Negative) mg/dL Urine Nitrate (Negative) Urine Bilirubin (Negative) mg/dL Urine Urobilinogen mg/dL Ur Leukocyte Esterase (Negative) /ug Urine RBC (0-1) /hpf Urine WBC (0-4) /hpf Ur Squamous Epith Cells (0-4) /hpf Urine Bacteria (0) /hpf Urine Mucus (None) /hpf Ur Culture Indicated? SARS-CoV-2 (PCR) (Negative) 08/26/20 08/26/20 08/26/20 Range/Units 17:48 18:01 18:05 WBC (4.5-11.0) K/mcL RBC (4.00-5.20) M/mcL Hgb (12.0-15.0) g/dL Hct (36.0-48.0) % MCV (80.0-100.0) fL MCH (26.0-34.0) pg MCHC (31.0-36.0) g/dL RDW (11.5-14.5) % Plt Count (140-440) K/mcL MPV (7.4-10.4) fL Neut % (Auto) (38.0-78.0) % Lymph % (Auto) (15.0-49.0) % Christian % (Auto) (1.0-12.0) % Eos % (Auto) (0.0-7.0) % Baso % (Auto) (0.0-2.0) % Lymph # (Auto) (1.50-4.80) K/mcL Christian # (Auto) (0.10-0.90) K/mcL Eos # (Auto) (0.00-0.70) K/mcL Baso # (Auto) (0.00-0.20) K/mcL Absolute Neutrophils (1.80-8.00) K/mcL ESR (0-20) mm/hr VBG Lactic Acid (0.5-2.0) mmol/L Sodium (133-145) mmol/L Potassium (3.3-5.1) mmol/L Chloride (96-108) mmol/L Carbon Dioxide (22-30) mmol/L Anion Gap (8.0-16.0) BUN (8-23) mg/dL Creatinine (0.6-1.1) mg/dL GFR Calculation Glucose (70-105) mg/dL Calcium (8.6-10.4) mg/dL Total Bilirubin (0.1-1.0) mg/dL AST (<32) U/L ALT (<40) U/L Alkaline Phosphatase (39-117) U/L C-Reactive Protein (0.03-0.80) mg/dL Total Protein (5.9-8.4) gm/dL Albumin (3.2-5.2) gm/dL Globulin (2.2-3.7) gm/dL Albumin/Globulin Ratio (1.0-2.3) Procalcitonin 0.37 H (<0.10) ng/mL Urine Color Straw Urine Appearance Clear (Clear) Urine pH 8.0 (5.0-9.0) Ur Specific Milton 1.008 (1.000-1.035) Urine Protein >=500 A (Negative) mg/dL Urine Glucose (UA) 50 A (Negative) mg/dL Urine Ketones Negative (Negative) mg/dL Urine Occult Blood Negative (Negative) mg/dL Urine Nitrate Negative (Negative) Urine Bilirubin Negative (Negative) mg/dL Urine Urobilinogen Negative mg/dL Ur Leukocyte Esterase Negative (Negative) /ug Urine RBC 1 (0-1) /hpf Urine WBC 7 H (0-4) /hpf Ur Squamous Epith Cells 0 (0-4) /hpf Urine Bacteria None (0) /hpf Urine Mucus Few A (None) /hpf Ur Culture Indicated? No SARS-CoV-2 (PCR) Negative (Negative) Discharge Plan Patient/Caregiver Discharge Instructions Pt seen by OPERATIONS VICE PRESIDENT/PA only: Yes Clinical Impression: Sepsis Patient Disposition: Xfer As Inpt ([facility]) Follow up with: Ale Long PA-C [Primary Care Provider] - Prescriptions: No Action (DME) pen needle, diabetic [BD Ultra-Fine Mini Pen Needle] 31 gauge x 3/16" needle See Rx Instructions .ROUTE .MEDSUPPLY Qty: 50 RF: 0 (DME) blood-glucose meter, drum-type Kit See Rx Instructions .ROUTE .MEDSUPPLY Qty: 1 RF: 0 (DME) blood sugar diagnostic, drum Strip See Rx Instructions .ROUTE .MEDSUPPLY Qty: 1 RF: 0 insulin glargine 100 unit/mL solution 11 unit subcut QPM Qty: 10 RF: 1 methocarbamol 500 mg tablet 500 mg PO BID PRN (Reason: muscle spasm) Qty: 60 RF: 0 metoprolol succinate 25 mg tablet extended release 24 hr 25 mg PO QDAY Qty: 30 RF: 0 atorvastatin 10 mg tablet 10 mg PO QHS Qty: 90 RF: 0 tamsulosin 0.4 mg capsule 0.4 mg PO HS Qty: 90 RF: 0 fluticasone propionate [Flonase Allergy Relief] 50 mcg/actuation spray,suspension 2 spray INTRANASAL QDAY Qty: 16 RF: 3 pramipexole 1 mg tablet 1 mg PO HS Qty: 90 RF: 0 Januvia 50 mg tablet 50 mg PO DAILY Qty: 30 RF: 0 Protonix [address] for susp in packet 40 mg PO QAMAC Qty: 90 RF: 0 acetaminophen [Tylenol] 325 mg tablet 650 mg PO Q6H PRN (Reason: Pain) RF: 0 citalopram 10 mg tablet 10 mg PO QDAY Qty: 30 RF: 3 insulin lispro 100 unit/mL solution See Rx Instructions subcut .qac Qty: 10 RF: 3 hydrocodone-acetaminophen [Murdock] 5-325 mg Tablet 1 tab PO Q4-6HP PRN (Reason: Pain) Qty: 12 RF: 0
[2020-08-26] MEDS ORDERED: LORazepam 2 MG/ML VIAL IV ONE (17:39)
[2020-08-26] MEDS ORDERED: ACETAMINOPHEN 1,000 MG/100 ML BOTTLE IV ONE (17:39)
--- NOTE | 2020-08-26 18:16 | XRay Report ---
INDICATION: sepsis TECHNIQUE: AP portable semiupright chest x-ray COMPARISON: None FINDINGS: Lungs:Lungs are negative. No focal pulmonary parenchymal infiltrate or mass Heart, vascular:No significant cardiomegaly. Pulmonary vascularity is normal. No pulmonary edema or pulmonary congestion Mediastinum, coral:No mediastinal widening. No hilar mass. Thoracic aorta appears ectatic and tortuous Pleura:No pleural fluid. No pleural-based mass or calcification Skeletal:Negative. IMPRESSION: 1. No acute or focal abnormality. 2. No interval change since 08/04/2020 Interpreted and Authenticated by: Dima Mcgarry 08/26/20
[2020-08-26 18:40] LABS: Appearance,Urine CLEAR (Clear); Bilirubin,Urine Negative (Negative); Color,Urine STRAW; Culture Indicated,Urine No; Glucose,Urine (UA) 50 mg/dL (Negative); Ketones,Urine Negative (Negative); Leukocyte Esterase,Urine Negative /ug (Negative); Mucus,Urine FEW /hpf; Nitrate,Urine Negative (Negative); Protein,Urine >=500 mg/dL (Negative); Specific Gravity,Urine 1.008 (1.000-1.035); Urine Blood Negative (Negative); Urine RBC 1 /hpf (0-1); Urine Squamous Epithelial Cell 0 /hpf (0-4); Urine WBC 7 /hpf (0-4); Urobilinogen,Urine Negative
[2020-08-26 18:40] LABS: Basophils # (Auto) 0.02 K/mcL (0.00-0.20); Basophils % (Auto) 0.1 % (0.0-2.0); Eosinophils # (Auto) 0.02 K/mcL (0.00-0.70); Eosinophils % (Auto) 0.1 % (0.0-7.0); Hematocrit 37.1 % (36.0-48.0); Hemoglobin 12.2 g/dL (12.0-15.0); Lymphocytes # (Auto) 0.67 K/mcL (1.50-4.80); Lymphocytes % (Auto) 4.5 % (15.0-49.0); Mean Cell Volume 90.9 fL (80.0-100.0); Mean Corpuscular HGB Conc 32.9 g/dL (31.0-36.0); Mean Platelet Volume 10.1 fL (7.4-10.4); Monocytes # (Auto) 0.66 K/mcL (0.10-0.90); Monocytes % (Auto) 4.4 % (1.0-12.0); Neutrophils % (Auto) 90.9 % (38.0-78.0); Platelet Count 169 K/mcL (140-440); RBC 4.08 M/mcL (4.00-5.20)
[2020-08-26] MEDS ORDERED: VANCOMYCIN PER PHARMACY IV ONE ×2 (18:43→20:00)
[2020-08-26 18:57] LABS: ALT/SGPT 17 U/L (<40); AST/SGOT 23 U/L (<32); Albumin 3.8 gm/dL (3.2-5.2); Albumin/Globulin Ratio 1.3 (1.0-2.3); Alkaline Phosphatase 81 U/L (39-117); Bilirubin,Total 0.8 mg/dL (0.1-1.0); Blood Urea Nitrogen 16 mg/dL (8-23); Calcium 9.2 mg/dL (8.6-10.4); Carbon Dioxide 26 mmol/L (22-30); Chloride 96 mmol/L (96-108); Glomerular Filtration Rate 51; Glucose 153 mg/dL (70-105)
--- NOTE | 2020-08-26 20:03 | Internal Med History&Physical ---
HPI History of Present Illness Patient information: Note initiated : 08/26/20 at 8:03 pm Service Date, if different from initiated Date: [] Patient: Shakira Hou a 85 y/o F admitted on for anxiety. Chief Complaint: Fever, weakness History of present illness: Ms. Hou is a 85 year old F presented today following recent multiple hospitalizations in the last few months with recurrent sepsis/complicated UTI at [facility]. Patient was discharged to [facility] around mid July following treatment for sepsis. She now presents with fever of 102.5 with chills, malaise, Weakness not feeling well over the last 48 hours. Initial work-up was consistent with severe sepsis with a fever 102.5/pyuria/endorgan dysfunction including SVT with rates in 150s. CT abdomen consistent with mild hydronephrosis/nephrolithiasis/bladder outlet obstruction. Patient was started on antibiotic coverage after cultures were drawn. Grajeda's catheter was placed. She tachycardic/SVT and was started on diltiazem drip. Covid test ordered. Hospital service was consulted for admission in light of above. At the time of evaluation patient is alert and oriented. She is very distressed with her recurrent symptoms and repeated hospitalizations failing to get better. She denies recent diarrhea, dysuria, abdominal pain, headache or photophobia endorses to weakness myalgia and fever along with chills. Review of systems 10 point review system was performed and is negative except for ones discussed above PFSH PFSH All Active Problems (Updated 08/26/20 @ 21:36 by Aga Sosa PA-C) Sepsis (Acute) [place] of foot (Acute) Anorexia (Acute) Chest congestion (Acute) Acute UTI (Acute) Fever (Acute) Anxiety (Acute) Pneumonia (Acute) Sepsis (Acute) Acute respiratory failure with hypoxia (Acute) Cellulitis of leg without foot, right (Acute) Disorder of kidney and ureter (Acute) Renal osteodystrophy (Acute) Vitamin D deficiency (Acute) Anemia of renal disease (Acute) Thoracic radiculitis (Acute) Vertigo (Acute) Acquired absence of other left toe(s) (Acute) Acquired absence of other right toe(s) (Acute) Other hammer toe(s) (acquired), left foot (Acute) Other hammer toe(s) (acquired), right foot (Acute) Hypercholesterolemia (Acute) Chronic kidney disease, stage 3 (moderate) (Acute) Intervertebral disc disorders with radiculopathy, thoracolumbar region (Acute) Menopausal and female climacteric states (Acute) Unspecified osteoarthritis, unspecified site (Acute) Gastro-esophageal reflux disease without esophagitis (Acute) Radiculopathy, lumbosacral region (Acute) Low back pain (Acute) Mixed hyperlipidemia (Acute) History of bunionectomy (Acute) History of total right knee replacement (Acute ~2014) History of total left knee replacement (Acute ~2007) History of surgical procedure (Acute ~2003) History of hysterectomy (Acute ~2003) Vitiligo (Acute) Restless leg (Acute) Proteinuria (Acute) Schatzki's ring (Acute) Osteoporosis (Acute) Depression (Acute) Lower abdominal pain, unspecified (Acute) Other visual disturbances (Acute) Cardiac arrhythmia, unspecified (Acute) Dorsopathy, unspecified (Acute) Dizziness and giddiness (Acute) 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) Other idiopathic scoliosis, site unspecified (Acute) Type 1 diabetes mellitus with hypoglycemia without coma, with long-term current use of insulin (Acute) Type 1 diabetes mellitus with hyperglycemia, without long-term current use of insulin (Acute) Pure hypercholesterolemia (Acute) 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 mellitus (Acute) Insomnia, unspecified (Acute) Edema, unspecified (Acute) Unspecified kidney failure (Acute) Type 1 diabetes mellitus without complications (Acute) Eustachian tube dysfunction (Acute) Poor balance (Acute) 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) History of surgery (Chronic) Radiculopathy, thoracic region (Chronic) Fall (Acute) History of CVA (cerebrovascular accident) (Chronic) History of nephrectomy, right (Chronic) Chronic abdominal pain (Chronic) Hypertension, essential (Chronic) Diabetes mellitus, type 2 (Chronic) Xerotic eczema (Acute) Abdominal pain (Acute) Hypoglycemia (Acute) UTI (urinary tract infection) (Acute) Medical History Acquired absence of other left toe(s) (Acute) Acquired absence of other right toe(s) (Acute) Anemia of renal disease (Acute) Cardiac arrhythmia, unspecified (Acute) Chronic abdominal pain (Chronic) Chronic kidney disease, stage 3 (moderate) (Acute) Depression (Acute) Diabetes mellitus, type 2 (Chronic) 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 mellitus (Acute) Disorder of kidney and ureter (Acute) Dizziness and giddiness (Acute) Dorsopathy, unspecified (Acute) Edema, unspecified (Acute) Gastro-esophageal reflux disease without esophagitis (Acute) History of CVA (cerebrovascular accident) (Chronic) Seen on MRI Hypercholesterolemia (Acute) Hypertension, essential (Chronic) Insomnia, unspecified (Acute) Intervertebral disc disorders with radiculopathy, thoracolumbar region (Acute) Low back pain (Acute) Lower abdominal pain, unspecified (Acute) Menopausal and female climacteric states (Acute) Mixed hyperlipidemia (Acute) Osteoporosis (Acute) Other hammer toe(s) (acquired), left foot (Acute) Other hammer toe(s) (acquired), right foot (Acute) Other idiopathic scoliosis, site unspecified (Acute) Other visual disturbances (Acute) Proteinuria (Acute) Pure hypercholesterolemia (Acute) Radiculopathy, lumbosacral region (Acute) Radiculopathy, thoracic region (Chronic) Renal cell cancer (Resolved) Right; status post nephrectomy Renal osteodystrophy (Acute) Restless leg (Acute) Schatzki's ring (Acute) Thoracic radiculitis (Acute) 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) Type 1 diabetes mellitus with hyperglycemia, without long-term current use of insulin (Acute) Type 1 diabetes mellitus with hypoglycemia without coma, with long-term current use of insulin (Acute) Type 1 diabetes mellitus without complications (Acute) Unspecified kidney failure (Acute) Unspecified osteoarthritis, unspecified site (Acute) Vertigo (Acute) Vitamin D deficiency (Acute) Vitiligo (Acute) Surgical History History of bunionectomy (Acute) Left foot, and right foot 2017 History of hysterectomy (Acute ~2003) poor outcome History of nephrectomy, right (Chronic) History of surgery (Chronic) TESI #1 T9-10 w/o sed 07/07/19 History of surgical procedure (Acute ~2003) urethra surgery-ureter reimplantation, damaged in hysterectomy History of total left knee replacement (Acute ~2007) History of total right knee replacement (Acute ~2014) Total knee replacement status (Acute) Family History Father , 81 yrs Emphysema, unspecified Stroke Brother Heart disease Type 1 diabetes Social History (Updated 05/18/20 @ 14:47 by Alycia Bowie) marital status: smoking status: Never smoker alcohol intake frequency: a few times a month substance use type: does not use MEDS/ALLERGIES Home Medications and Allergies Home Medications Medication Instructions Recorded Confirmed Type blood sugar diagnostic, drum #1 05/30/20 08/27/20 History blood-glucose meter, drum-type #1 05/30/20 08/27/20 History pen needle, diabetic 31 gauge x #50 each 05/30/20 08/27/20 Rx 3/16" atorvastatin 10 mg tablet 10 mg PO QHS #90 tab 07/04/20 08/26/20 Rx fluticasone propionate 50 2 spray INTRANASAL QDAY #16 g 07/04/20 08/27/20 Rx mcg/actuation nasal spray,suspension insulin glargine 100 unit/mL 11 unit SUBCUT QPM #10 ml 07/04/20 08/26/20 Rx subcutaneous solution methocarbamol 500 mg tablet 500 mg PO BID PRN #60 tab 07/04/20 08/27/20 Rx metoprolol succinate 25 mg 25 mg PO QDAY #30 tab 07/04/20 08/26/20 Rx tablet,extended release 24 hr acetaminophen 325 mg tablet 650 mg PO Q4H PRN tab 07/10/20 08/27/20 History citalopram 10 mg tablet 10 mg PO QDAY #30 tab 07/10/20 08/26/20 Rx insulin lispro 100 unit/mL See Rx Instructions SUBCUT .qac 07/18/20 08/26/20 Rx subcutaneous solution #10 ml pantoprazole 40 mg granules 40 mg PO QAMAC #90 ea 08/18/20 08/26/20 Rx delayed-release for susp in packet sitagliptin 50 mg tablet 50 mg PO DAILY #30 tab 08/18/20 08/26/20 Rx hydrocodone-acetaminophen [[place]] 1 tab PO Q4HP PRN 08/27/20 08/27/20 History pramipexole 1 mg PO QHS 08/27/20 08/27/20 History tamsulosin 0.4 mg PO QHS 08/27/20 08/26/20 History Allergies Allergy/AdvReac Type Severity Reaction Status Date / Time gabapentin AdvReac Mild LEG Verified 08/10/20 14:02 SWELLING EXAM Constitutional Vitals: Temp Pulse Resp BP Pulse Ox 99.1 F H 84 20 132/84 96 08/26/20 19:06 08/26/20 19:16 08/26/20 19:46 08/26/20 19:46 08/26/20 19:16 Anxious and distressed Head normocephalic Oral cavity moist No ear nose discharge Eye movement symmetrical Neck supple no lymphadenopathy S1-S2 tachycardia irregular SVT Nonlabored breathing Nondistended nontender abdomen Left knee minimal redness but no fluctuance or swelling. no cyanosis clubbing or joint swelling Skin no suspicious lesion Psych no hallucination delusion Neuro normal higher function DATA Data Completed and Pending Labs: Labs from last 24 hours 08/26/20 08/26/20 08/26/20 18:05 18:01 17:48 WBC RBC Hgb Hct MCV MCH MCHC RDW Plt Count MPV Neut % (Auto) Lymph % (Auto) [place] % (Auto) Eos % (Auto) Baso % (Auto) Lymph # (Auto) [place] # (Auto) Eos # (Auto) Baso # (Auto) Absolute Neutrophils ESR VBG Lactic Acid Sodium Potassium Chloride Carbon Dioxide Anion Gap BUN Creatinine GFR Calculation Glucose Calcium Total Bilirubin AST ALT Alkaline Phosphatase C-Reactive Protein Total Protein Albumin Globulin Albumin/Globulin Ratio Procalcitonin 0.37 H Urine Color Straw Urine Appearance Clear Urine pH 8.0 Ur Specific [place] 1.008 Urine Protein >=500 A Urine Glucose (UA) 50 A Urine Ketones Negative Urine Occult Blood Negative Urine Nitrate Negative Urine Bilirubin Negative Urine Urobilinogen Negative Ur Leukocyte Esterase Negative Urine RBC 1 Urine WBC 7 H Ur Squamous Epith Cells 0 Urine Bacteria None Urine Mucus Few A Ur Culture Indicated? No SARS-CoV-2 (PCR) Negative 08/26/20 08/26/20 08/26/20 17:48 17:48 17:48 WBC 15.0 H RBC 4.08 Hgb 12.2 Hct 37.1 MCV 90.9 MCH 29.9 MCHC 32.9 RDW 15.0 H Plt Count 169 MPV 10.1 Neut % (Auto) 90.9 H Lymph % (Auto) 4.5 L [place] % (Auto) 4.4 Eos % (Auto) 0.1 Baso % (Auto) 0.1 Lymph # (Auto) 0.67 L [place] # (Auto) 0.66 Eos # (Auto) 0.02 Baso # (Auto) 0.02 Absolute Neutrophils 13.63 H ESR Pending VBG Lactic Acid 1.0 Sodium 132 L Potassium 3.7 Chloride 96 Carbon Dioxide 26 Anion Gap 10.0 BUN 16 Creatinine 1.0 GFR Calculation 51 Glucose 153 H Calcium 9.2 Total Bilirubin 0.8 AST 23 ALT 17 Alkaline Phosphatase 81 C-Reactive Protein 0.30 Total Protein 6.8 Albumin 3.8 Globulin 3.0 Albumin/Globulin Ratio 1.3 Procalcitonin Urine Color Urine Appearance Urine pH Ur Specific [place] Urine Protein Urine Glucose (UA) Urine Ketones Urine Occult Blood Urine Nitrate Urine Bilirubin Urine Urobilinogen Ur Leukocyte Esterase Urine RBC Urine WBC Ur Squamous Epith Cells Urine Bacteria Urine Mucus Ur Culture Indicated? SARS-CoV-2 (PCR) A/P Narrative A/P Narrative: * Severe sepsis with endorgan dysfunction. Elevated white count over 15,000. Source possibly genitourinary in the setting of hydronephrosis/bladder outlet obstruction. Start broad antibiotic coverage/cultures/crystalloids/Grajeda's catheter * SVT continue rate control on diltiazem drip * Complicated UTI-on antibiotic coverage * History of DM type II continue basal prandial insulin * History of hypertension hold antihypertensives * Restless leg syndrome continue pramipexole * Hyperlipidemia on statin * Lymphedema start home dose diuretics * Chronic pain on hydrocodone * Full code * Prophylaxis Heparin PLAN * PCU admission * Sepsis management guidelines * Diltiazem drip for rate control * Broad antibiotic coverage * Pre-existing medical condition management home meds * Discharge planning per case management * PT OT nutrition support Critical time spent in excess of 35 minutes on management of SVT/severe sepsis/care coordination in addition to time spent on history and physical Time Spent With Patient Time: Total time spent is greater than 50% in coordination of care (as documented) at patient's floor/unit and/or counseling patient:
[2020-08-26 20:26] LABS: Erythrocyte Sedimentation Rate 15 mm/hr (0-20)
[2020-08-26] MEDS ORDERED: VANCOMYCIN 1,000 MG in 0.9 % SODIUM CHLORIDE 250 ML IV ONE (22:00)
[2020-08-26] MEDS ORDERED: POLYETHYLENE GLYCOL 3350 17 GM PACKET PO PRN (22:48)
[2020-08-26] MEDS ORDERED: POTASSIUM CHLORIDE 20 MEQ PACKET PO PRN (22:48)
[2020-08-26] MEDS ORDERED: BISACODYL 10 MG SUPP.RECT PR PRN (22:48)
[2020-08-26] MEDS ORDERED: ONDANSETRON 4 MG/2 ML VIAL IV PRN (22:48)
[2020-08-26] MEDS ORDERED: MELATONIN 3 MG TABLET PO PRN (22:48)
[2020-08-26] MEDS ORDERED: ONDANSETRON 4 MG ODT TABLET SL PRN (22:48)
[2020-08-26] MEDS ORDERED: MAGNESIUM SULFATE 2 GM/50 ML BAG IV PRN (22:48)
[2020-08-26] MEDS ORDERED: SENNOSIDES/DOCUSATE SODIUM 1 TAB TABLET PO SCH (22:48)
[2020-08-26] MEDS ORDERED: VANCOMYCIN PER PHARMACY IV SCH (22:48)
[2020-08-26] MEDS ORDERED: ACETAMINOPHEN 650 MG/65 ML BOTTLE IV PRN (22:48)
[2020-08-26] MEDS ORDERED: POTASSIUM CHLORIDE 40 MEQ in DEXTROSE 5% IN WATER 500 ML IV PRN (22:48)
[2020-08-26] MEDS ORDERED: 0.9 % SODIUM CHLORIDE 1,000 ML IV SCH (22:48)
[2020-08-26] MEDS ORDERED: ACETAMINOPHEN 325 MG TABLET PO PRN (22:48)
[2020-08-26] MEDS ORDERED: HEPARIN 5,000 UNIT/ML VIAL ONE (23:33)
[2020-08-27] MEDS: 0.9 % SODIUM CHLORIDE 10 ML SYRINGE IV SCH ×4 (00:06→20:23)
[2020-08-27] MEDS: PIPERACILLIN SODIUM/TAZOBACTAM 4.5 GM in DEXTROSE 5% IN WATER 50 ML IV SCH ×2 (00:08→05:26)
[2020-08-27] MEDS: DOCUSATE SODIUM 100 MG CAPSULE PO SCH ×3 (00:10→20:20)
[2020-08-27] MEDS: HEPARIN 5,000 UNIT/ML VIAL SQ SCH ×3 (00:11→20:21)
[2020-08-27] MEDS: PIPERACILLIN SODIUM/TAZOBACTAM 3.375 GM in DEXTROSE 5% IN WATER 50 ML IV SCH ×2 (00:16→05:25)
--- NOTE | 2020-08-27 06:03 | Cat Scan Report ---
INDICATION: sepsis COMPARISON: Previous chest x-rays dated 08/26/2020, 08/04/2020, 07/19/2020. Previous chest CT scan dated 06/03/2020. Previous abdominal and pelvic CT scan dated 09/26/2019 TECHNIQUE: Axial images were obtained through the chest,abdomen and pelvis. Sagittally and coronally reformatted images. 80 mLml Isovue 370 injected intravenously. Oral contrast material was not administered FINDINGS: The examination was initially interpreted by [facility] Chest CT: Lungs:Bilateral lower lobe atelectasis. There is mild bronchiectasis. No parenchymal consolidation. No evidence for pneumonia. No pulmonary parenchymal mass. Mediastinum:No pathologic mediastinal adenopathy. No hilar mass. Thoracic aorta is normal without aneurysmal dilatation. Main pulmonary artery measures 30 mm. This is at the upper limits of normal. Upper esophagus is gas-filled and slightly dilated. Definite esophageal mass is not identified. Heart:No significant cardiomegaly. No pericardial effusion. There is severe coronary artery calcification Pleura:No pleural fluid. No pleural-based mass. No pleural calcifications Axilla, supraclavicular regions, chest wall:No pathologic axillary or supraclavicular adenopathy Musculoskeletal:Negative thoracic spine. No compression fractures. No lytic lesions. No paraspinal mass Abdomen/Pelvis: Liver:Negative liver. No focal intrahepatic mass. Liver contour is smooth. There is no ascites Gallbladder, bilary:Gallbladder is prominent. No calcified gallstones. No pericholecystic fluid. No dilated bile ducts Spleen:No splenomegaly. No focal intrasplenic abnormality. Normal enhancement of splenic and portal veins. Pancreas:No pancreatic mass. No peripancreatic abnormality Adrenal glands:Adrenal glands are not well visualized. No adrenal mass Kidneys, ureters, bladder: Previous right nephrectomy. There is mild left hydronephrosis. No obstructing or nonobstructing calculi. No left renal mass There is left hydroureter. No ureteral stone. The urinary bladder is distended despite a Grajeda catheter within it. Bladder distention may cause hydronephrosis and hydroureter. There is a small amount of intravesical gas, presumably due to instrumentation. There is a single surgical clip adjacent to the urinary bladder on the left Gastrointestinal:No detectable colonic mass. There is no diverticulitis. Small bowel is negative. No mechanical small bowel obstruction. Stomach and duodenum are within normal limits Appendix: The appendix is negative Vascular:There is calcification of the abdominal aorta. No abdominal aortic aneurysm. No celiac or superior mesenteric artery stenosis Lymphatic:There are prominent inguinal lymph nodes. Largest lymph node is on the right and measures 2.2 cm. This does have a fatty hilum. No iliac chain or para-aortic adenopathy Mesentery, peritoneum:No free intraperitoneal fluid. No intra-abdominal abscess. No pneumoperitoneum Reproductive:Uterus is not identified. No adnexal masses Musculoskeletal:No compression fractures. No lytic lesions. Multilevel degenerative disc disease and degenerative facet arthropathy Sacrum, pelvis, hips are negative. No inguinal or abdominal wall hernia IMPRESSION: 1. Mild bilateral lateral lower lobe atelectasis and bronchiectasis. No focal parenchymal infiltrate or mass 2. Previous right nephrectomy 3. Distended urinary bladder despite Grajeda catheter in place. No detectable mass or stone. Mild intravesical gas is probably secondary to instrumentation 4. Mild left hydronephrosis and hydroureter 5. No intra-abdominal abscess The exam was performed using radiation dose optimization techniques including, but not limited to, automated exposure control, adjustment of the mA and/or kV according to patient size and use of iterative reconstruction technique. Interpreted and Authenticated by: Dima Mcgarry 08/27/20
[2020-08-27] MEDS ORDERED: MULTIVIT,THER IRON,CA,FA & MIN 1 TABLET PO SCH (09:00)
[2020-08-27] MEDS ORDERED: sitaGLIPtin 50 MG TABLET PO SCH (09:00)
[2020-08-27] MEDS ORDERED: METOPROLOL SUCCINATE 25 MG TAB.XL.24H PO SCH (09:00)
[2020-08-27] MEDS ORDERED: CITALOPRAM 20 MG TABLET PO SCH (09:00)
[2020-08-27 09:33] LABS: ALT/SGPT 13 U/L (<40); AST/SGOT 22 U/L (<32); Albumin 3.3 gm/dL (3.2-5.2); Albumin/Globulin Ratio 1.2 (1.0-2.3); Alkaline Phosphatase 70 U/L (39-117); Bilirubin,Direct 0.3 mg/dL (<0.3); Bilirubin,Total 1.2 mg/dL (0.1-1.0); Blood Urea Nitrogen 15 mg/dL (8-23); Calcium 8.7 mg/dL (8.6-10.4); Carbon Dioxide 25 mmol/L (22-30); Chloride 99 mmol/L (96-108); Globulin 2.7 gm/dL (2.2-3.7); Glomerular Filtration Rate 51; Glucose 94 mg/dL (70-105); Lactate Dehydrogenase 246 U/L (135-225); Phosphorous 3.7 mg/dL (2.5-4.5); Triglycerides 47 mg/dL (<150); Uric Acid 3.9 mg/dL (2.5-8.0)
[2020-08-27 09:50] LABS: Band Neutrophils % 4 % (0-10); Hematocrit 41.4 % (36.0-48.0); Hemoglobin 13.6 g/dL (12.0-15.0); Lymphocytes % 5 % (15-49); Mean Cell Volume 91.8 fL (80.0-100.0); Mean Corpuscular HGB Conc 32.9 g/dL (31.0-36.0); Mean Platelet Volume 10.7 fL (7.4-10.4); Monocytes % (Manual) 4 % (1-12); Platelet Count 141 K/mcL (140-440); Platelet Estimate NORMAL (Normal); RBC 4.51 M/mcL (4.00-5.20); RBC Morphology NORMAL (Normal); Reactive Lymphocytes 1 % (0-2); Red Cell Distribution Width 15.4 % (11.5-14.5); Segmented Neutrophils % 86 % (38-78); WBC 15.3 K/mcL (4.5-11.0)
[2020-08-27] MEDS ORDERED: HYDROcodone/APAP 5/325MG TABLET PO PRN ×2 (09:57→10:24)
[2020-08-27] MEDS ORDERED: ACETAMINOPHEN (PP) 325MG TABLET (#50) PO PRN (09:57)
[2020-08-27] MEDS ORDERED: METHOCARBAMOL 500 MG TABLET PO PRN ×2 (09:57→10:24)
[2020-08-27] MEDS ORDERED: INSULIN LISPRO 1 UNIT/0.01 ML UNIT SQ SCH (10:00)
[2020-08-27] MEDS ORDERED: [UNRECOGNIZED DRUG - OTHER] SCH (10:00)
[2020-08-27] MEDS ORDERED: [UNRECOGNIZED DRUG - OTHER] SCH (10:00)
[2020-08-27] MEDS ORDERED: DIABETIC SCH (10:00)
[2020-08-27] MEDS ORDERED: [UNRECOGNIZED DRUG - OTHER] SCH (10:00)
[2020-08-27] MEDS: INSULIN LISPRO 1 UNIT/0.01 ML UNIT SQ SCH ×3 (10:18→20:20)
[2020-08-27] MEDS ORDERED: MAGNESIUM SULFATE 2 GM/50 ML BAG IV PRN (10:24)
[2020-08-27] MEDS ORDERED: BISACODYL 10 MG SUPP.RECT PR PRN (10:24)
[2020-08-27] MEDS ORDERED: POLYETHYLENE GLYCOL 3350 17 GM PACKET PO PRN (10:24)
[2020-08-27] MEDS ORDERED: POTASSIUM CHLORIDE 20 MEQ PACKET PO PRN (10:24)
[2020-08-27] MEDS ORDERED: ACETAMINOPHEN 325 MG TABLET PO PRN (10:24)
[2020-08-27] MEDS ORDERED: VANCOMYCIN PER PHARMACY IV SCH (10:24)
[2020-08-27] MEDS ORDERED: POTASSIUM CHLORIDE 40 MEQ in DEXTROSE 5% IN WATER 500 ML IV PRN (10:24)
[2020-08-27] MEDS ORDERED: ONDANSETRON 4 MG/2 ML VIAL IV PRN (10:24)
[2020-08-27] MEDS ORDERED: ACETAMINOPHEN 650 MG/65 ML BOTTLE IV PRN (10:24)
[2020-08-27] MEDS: 0.9 % SODIUM CHLORIDE 1,000 ML IV SCH (10:37)
[2020-08-27] MEDS ORDERED: PANTOPRAZOLE 40 MG PACKET PO SCH (11:00)
[2020-08-27] MEDS: PIPERACILLIN SODIUM/TAZOBACTAM 2.25 GM in DEXTROSE 5% IN WATER 50 ML IV SCH ×3 (11:51→23:39)
[2020-08-27] MEDS ORDERED: PIPERACILLIN SODIUM/TAZOBACTAM 2.25 GM in DEXTROSE 5% IN WATER 50 ML IV SCH (12:00)
[2020-08-27] MEDS ORDERED: VANCOMYCIN 1,000 MG in 0.9 % SODIUM CHLORIDE 250 ML IV SCH (12:00)
--- NOTE | 2020-08-27 12:01 | Internal Med Progress Note ---
SUBJECTIVE Subjective Patient information: Note initiated : 08/27/20 at 11:55 am Service Date, if different from initiated Date: [] Patient: Shakira Hou 85 y/o F admitted on 08/26/20 for anxiety. Chief Complaint: History of present illness: Ms. Hou is a 85 year old F presented today fol lowing recent multiple hospitalizations in the last few months with recurrent sepsis/complicated UTI at [facility]. Patient was discharged to [facility] around mid July following treatment for sepsis. She now presents with fever of 102.5 with chills, malaise, Weakness not feeling well over the last 48 hours. Initial work-up was consistent with severe sepsis with a fever 102.5/pyuria/endorgan dysfunction including SVT with rates in 150s. CT abdomen consistent with mild hydronephrosis/nephrolithiasis/bladder outlet obstruction. Patient was started on antibiotic coverage after cultures were drawn. Grajeda's catheter was placed. She tachycardic/SVT and was started on diltiazem drip. Covid test ordered. Hospital service was consulted for admission in light of above. At the time of evaluation patient is alert and oriented. She is very distressed with her re current symptoms and repeated hospitalizations failing to get better. She denies recent diarrhea, dysuria, abdominal pain, headache or photophobia endorses to weakness myalgia and fever along with chills. 08/27-patient doing well. SVT resolved. Stable hemodynamics. No telemetry events. White count unchanged at 15.3. Improved labs. Sodium improved to 136, transfer to medical floor. Continue antibiotic coverage. Cultures negative so far. Constitutional Vitals: Vital Signs Temp Pulse Resp BP Pulse Ox 98.1 F 80 18 112/71 95 08/27/20 08:01 08/27/20 08:00 08/27/20 10:01 08/27/20 10:01 08/27/20 10:01 Period Temp Pulse Resp BP Sys/Glez Pulse Ox Last 24 Hr 97.2 F-102.3 F 60-121 14-34 101-179/62-105 84-100 Intake and Output 08/26/20 08/27/20 08/27/20 22:59 05:59 13:59 Intake Total 360 Output Total 1800 Balance -1440 Weight Alert oriented No anxiety Nonlabored breathing Nondistended abdomen Intake & Output: Intake & Output 08/26/20 08/27/20 08/27/20 22:59 05:59 13:59 Intake Total 360 Output Total 1800 Balance -1440 Weight Intake: IV Sodium Chloride 0.9% 1,000 ml @ Wide Open IV .Q0M ONE Rx#: [id number] Zosyn 3.375 gm In Dextrose 5% in Water 50 ml @ 100 mls/hr IV Q6H [facility] Rx#:[id number] Zosyn 4.5 gm In Dextrose 5% in Water 50 ml @ 100 mls/hr IV Q6H [facility] Rx#:[id number] Vancomycin 1,000 mg In Sodium Chloride 0.9% 250 ml @ 250 mls/ hr IV ONCE ONE Rx#:[id number] Oral 360 Output: Urine Catheter Amount 1800 # of times incontinent of urine Other: Meal Breakfast Percent of Meal Consumed 50% Feeding Ability Independent Urine Appearance Clear Uretheral (Grajeda) Clear Urine Color Bright Yellow Uretheral (Grajeda) Bright Yellow Urine Odor Normal OBJ DATA Labs CBC & Chem 7: 08/27/20 04:46 08/27/20 04:46 Labs: Abnormal Lab Results 08/27/20 08/27/20 08/26/20 04:46 04:46 18:05 WBC 15.3 H RDW 15.4 H MPV 10.7 H Neut % (Auto) Lymph % (Auto) Lymph # (Auto) Seg Neutrophils % 86 H Lymphocytes % 5 L Absolute Neutrophils Sodium Glucose Total Bilirubin 1.2 H Direct Bilirubin 0.3 H Lactate Dehydrogenase 246 H Procalcitonin Urine Protein >=500 A Urine Glucose (UA) 50 A Urine WBC 7 H Urine Mucus Few A 08/26/20 08/26/20 08/26/20 17:48 17:48 17:48 WBC 15.0 H RDW 15.0 H MPV Neut % (Auto) 90.9 H Lymph % (Auto) 4.5 L Lymph # (Auto) 0.67 L Seg Neutrophils % Lymphocytes % Absolute Neutrophils 13.63 H Sodium 132 L Glucose 153 H Total Bilirubin Direct Bilirubin Lactate Dehydrogenase Procalcitonin 0.37 H Urine Protein Urine Glucose (UA) Urine WBC Urine Mucus Meds: Medications Acetaminophen (Tylenol) 650 mg PO Q4-6HP PRN; Protocol PRN Reason: Per Pain Protocol/Fever > 101 Hydrocodone Bitart/Acetaminophen ([place] 5/325mg) 1 tab PO Q4HP PRN; Protocol PRN Reason: Pain Atorvastatin Calcium (Lipitor) 10 mg PO QHS [facility] Bisacodyl (Dulcolax) 10 mg AL Q2-3DAYS PRN PRN Reason: Constipation Citalopram Hydrobromide (Celexa) 10 mg PO DAILY [facility] Diagnostic Test (Pha) (Accu-Chek) 1 each FS ACHS [facility] Last Admin: 08/27/20 10:17 Dose: 1 each Documented by: Docusate Sodium (Colace) 100 mg PO BID [facility] Heparin Sodium (Porcine) (Heparin) 5,000 unit SQ Q12 [facility] Sodium Chloride (Sodium Chloride 0.9%) 1,000 mls @ 50 mls/hr IV .Q20H [facility] Stop: 08/29/20 10:47 Last Admin: 08/27/20 10:37 Dose: Not Given Documented by: Magnesium Sulfate (Magnesium Sulfate) 2 gm in 50 mls @ 50 mls/hr IV UD PRN PRN Reason: MG = or < 1.7 Potassium Chloride 40 meq/ (Dextrose) 520 mls @ 130 mls/hr IV UD PRN PRN Reason: K+ = or < 3.5 Acetaminophen (Ofirmev) 650 mg in 65 mls @ 130 mls/hr IV Q6HP PRN; Protocol PRN Reason: Per Pain Protocol/Fever > 101 Piperacillin Sod/Tazobactam (Sod 2.25 gm/ Dextrose) 50 mls @ 100 mls/hr IV Q6H [facility] Last Admin: 08/27/20 11:51 Dose: 100 mls/hr Documented by: Vancomycin HCl 1,000 mg/ (Sodium Chloride) 250 mls @ 250 mls/hr IV DAILY [facility] Insulin Glargine (Lantus) 11 unit SQ QPM [facility] Insulin Human Lispro (Humalog) 0 unit SQ ACHS [facility]; Protocol Last Admin: 08/27/20 10:18 Dose: 1 unit Documented by: Iron Carb/Multivit/[place]/Folic Acid (Multivitamin W/Minerals) 1 tab PO DAILY [facility] Melatonin (Melatonin 3mg Tablet) 3 mg PO HSP PRN PRN Reason: Insomnia Methocarbamol (Robaxin) 500 mg PO BIDP PRN PRN Reason: muscle spasm Metoprolol Succinate (Toprol Xl) 25 mg PO QDAY [facility] Ondansetron HCl (Zofran Odt) 4 mg SL Q4-6HP PRN; Protocol PRN Reason: Nausea And Vomiting Ondansetron HCl (Zofran) 4 mg IV Q4-6HP PRN; Protocol PRN Reason: Nausea And Vomiting Pantoprazole Sodium (Protonix) 40 mg PO QAMAC [facility] Polyethylene Glycol (Miralax) 17 gm PO DAILYP PRN PRN Reason: Constipation Potassium Chloride (Klor-Con) 40 meq PO DAILYP PRN PRN Reason: K+ < 3.5 Pramipexole Dihydrochloride (Mirapex) 1 mg PO QHS [facility] Senna/Docusate Sodium (Senna Plus Tablet) 1 tab PO HS [facility] Sitagliptin Phosphate (Januvia) 50 mg PO DAILY [facility] Sodium Chloride (Saline Flush) 10 ml IV Q8 [facility] Tamsulosin HCl (Flomax) 0.4 mg PO QHS [facility] Vancomycin HCl (Vancomycin Per Pharmacy) 1 order IV UD [facility]I; Protocol A/P Narrative A/P Narrative: * Severe sepsis with endorgan dysfunction. White count persistent elevation. source, in the setting of hydronephrosis/bladder outlet obstruction. Continue antibiotic coverage/cultures/crystalloids/Grajeda's catheter * SVT -resolved in sinus rhythm, continue beta-eric * Complicated UTI-continue antibiotic coverage * History of DM type II continue CC diet/basal prandial insulin/sitagliptin * History of hypertension restart metoprolol * Restless leg syndrome continue pramipexole * Hyperlipidemia on statin * Lymphedema start home dose diuretics * GERD continue PPI * Chronic pain on hydrocodone/methocarbamol * Full code * Prophylaxis Heparin PLAN * Broad antibiotic coverage and de-escalate based on cultures * Pre-existing medical condition management home meds * Discharge planning per case management * PT OT nutrition support Time Spent With Patient Time: Total time spent is greater than 50% in coordination of care (as documented) at patient's floor/unit and/or counseling patient: QUALITY Stroke Symptom Onset Unknown: No VTE Deep Vein Thrombosis/Pulmonary Embolism Present on Admission: No
[2020-08-27] MEDS: VANCOMYCIN 1,000 MG in 0.9 % SODIUM CHLORIDE 250 ML IV SCH (12:23)
[2020-08-27] MEDS: PRAMIPEXOLE 1 MG TABLET PO SCH (20:21)
[2020-08-27] MEDS: ATORVASTATIN 10 MG TABLET PO SCH (20:21)
[2020-08-27] MEDS: TAMSULOSIN 0.4 MG CAPSULE PO SCH (20:21)
[2020-08-27] MEDS: SENNOSIDES/DOCUSATE SODIUM 1 TAB TABLET PO SCH (20:22)
[2020-08-27] MEDS: INSULIN GLARGINE, HUMAN 1 UNIT/0.01 ML SQ SCH (20:22)
[2020-08-27] MEDS ORDERED: TAMSULOSIN 0.4 MG CAPSULE PO SCH (21:00)
[2020-08-27] MEDS ORDERED: PRAMIPEXOLE 1 MG TABLET PO SCH (21:00)
[2020-08-27] MEDS ORDERED: MELATONIN 3 MG TABLET PO PRN (21:00)
[2020-08-27] MEDS ORDERED: ATORVASTATIN 10 MG TABLET PO SCH (21:00)
[2020-08-27] MEDS ORDERED: INSULIN GLARGINE, HUMAN 1 UNIT/0.01 ML SQ SCH (21:00)
[2020-08-27] MEDS: ONDANSETRON 4 MG ODT TABLET SL PRN (23:38)
[2020-08-28] MEDS: 0.9 % SODIUM CHLORIDE 1,000 ML IV SCH ×2 (02:43→06:07)
[2020-08-28] MEDS: 0.9 % SODIUM CHLORIDE 10 ML SYRINGE IV SCH ×3 (05:12→21:24)
[2020-08-28] MEDS: PIPERACILLIN SODIUM/TAZOBACTAM 2.25 GM in DEXTROSE 5% IN WATER 50 ML IV SCH ×3 (05:12→18:03)
[2020-08-28] MEDS: PANTOPRAZOLE 40 MG PACKET PO SCH (07:37)
[2020-08-28] MEDS: INSULIN LISPRO 1 UNIT/0.01 ML UNIT SQ SCH ×4 (07:40→21:23)
[2020-08-28] MEDS: sitaGLIPtin 50 MG TABLET PO SCH (08:31)
[2020-08-28] MEDS: DOCUSATE SODIUM 100 MG CAPSULE PO SCH ×2 (08:32→21:23)
[2020-08-28 08:33] LABS: ALT/SGPT 10 U/L (<40); AST/SGOT 20 U/L (<32); Albumin 2.9 gm/dL (3.2-5.2); Alkaline Phosphatase 66 U/L (39-117); Bilirubin,Direct < 0.2 mg/dL (<0.3); Bilirubin,Total 0.6 mg/dL (0.1-1.0); Blood Urea Nitrogen 14 mg/dL (8-23); Calcium 8.7 mg/dL (8.6-10.4); Carbon Dioxide 26 mmol/L (22-30); Chloride 101 mmol/L (96-108); Globulin 2.9 gm/dL (2.2-3.7); Glomerular Filtration Rate 57; Glucose 118 mg/dL (70-105); Lactate Dehydrogenase 241 U/L (135-225); Phosphorous 4.4 mg/dL (2.5-4.5); Triglycerides 88 mg/dL (<150); Uric Acid 2.6 mg/dL (2.5-8.0)
[2020-08-28] MEDS: HEPARIN 5,000 UNIT/ML VIAL SQ SCH (08:33)
[2020-08-28] MEDS: MULTIVIT,THER IRON,CA,FA & MIN 1 TABLET PO SCH (08:33)
--- NOTE | 2020-08-28 08:34 | XRay Report ---
HISTORY: Anxiety, interval change FINDINGS: The heart appears moderately enlarged but is magnified by portable technique. The heart has slightly increased in size since the chest x-ray done on 08/26/20. There may be a small pericardial effusion. There is a generalized haziness in the lung parenchyma bilaterally, most apparent centrally in the right mid thorax. Pulmonary vessels are mildly engorged. The pulmonary vascular congestion and vague alveolar opacity located centrally in the right lung have developed since 08/26/20. In addition there is a zone of consolidated lung parenchyma posteriorly and medially in the left lower thorax, which has developed since 08/26/20 and may be atelectasis or pneumonia. IMPRESSION: Cardiomegaly with pulmonary vascular congestion. Mild consolidation posteriorly and medially in the left lower lobe Interpreted and Authenticated by: José Miguel Jama 08/28/20
[2020-08-28] MEDS ORDERED: METOPROLOL SUCCINATE 25 MG TAB.XL.24H PO SCH (09:00)
[2020-08-28] MEDS ORDERED: CITALOPRAM 20 MG TABLET PO SCH (09:00)
[2020-08-28 09:15] LABS: Anisocytosis 1+ (None Seen); Band Neutrophils % 1 % (0-10); Hematocrit 37.3 % (36.0-48.0); Hemoglobin 11.5 g/dL (12.0-15.0); Lymphocytes % 18 % (15-49); Mean Cell Volume 96.6 fL (80.0-100.0); Mean Corpuscular HGB Conc 30.8 g/dL (31.0-36.0); Mean Platelet Volume 10.3 fL (7.4-10.4); Monocytes % (Manual) 6 % (1-12); Platelet Count 116 K/mcL (140-440); Platelet Estimate DECREASED (Normal); RBC 3.86 M/mcL (4.00-5.20); RBC Morphology ABNORMAL (Normal); Reactive Lymphocytes 1 % (0-2); Red Cell Distribution Width 15.5 % (11.5-14.5); Segmented Neutrophils % 74 % (38-78); WBC 8.2 K/mcL (4.5-11.0)
--- NOTE | 2020-08-28 09:27 | Internal Med Progress Note ---
SUBJECTIVE Subjective Patient information: Note initiated : 08/28/20 at 9:25 am Service Date, if different from initiated Date: [] Patient: Shakira Hou a 85 y/o F admitted on 08/26/20 for anxiety. Chief Complaint: History of present illness: Ms. Hou is a 85 year old F presented today foll owing recent multiple hospitalizations in the last few months with recurrent sepsis/complicated UTI at [facility]. Patient was discharged to [facility] around mid July following treatment for sepsis. She now presents with fever of 102.5 with chills, malaise, Weakness not feeling well over the last 48 hours. Initial work-up was consistent with severe sepsis with a fever 102.5/pyuria/endorgan dysfunction including SVT with rates in 150s. CT abdomen consistent with mild hydronephrosis/nephrolithiasis/bladder outlet obstruction. Patient was started on antibiotic coverage after cultures were drawn. Grajeda's catheter was placed. She tachycardic/SVT and was started on diltiazem drip. Covid test ordered. Hospital service was consulted for admission in light of above. At the time of evaluation patient is alert and oriented. She is very distressed with her recu rrent symptoms and repeated hospitalizations failing to get better. She denies recent diarrhea, dysuria, abdominal pain, headache or photophobia endorses to weakness myalgia and fever along with chills. 08/27-patient doing well. SVT resolved. Stable hemodynamics. No telemetry events. White count unchanged at 15.3. Improved labs. Sodium improved to 136, transfer to medical floor. Continue antibiotic coverage. Cultures negative so far. 07/28-chest imaging consistent with new onset of left lower lobe pneumonia. White count down to 8000. Responding well to antibiotic coverage. Cultures negative so far. Stable hemodynamics. Constitutional Vitals: Vital Signs Temp Pulse Resp BP Pulse Ox 98.4 F 83 16 119/65 93 08/28/20 08:39 08/28/20 04:00 08/28/20 08:39 08/28/20 08:39 08/28/20 08:39 Period Temp Pulse Resp BP Sys/Glez Pulse Ox Last 24 Hr 98.4 F-98.9 F 72-83 14-20 112-142/65-79 90-95 Intake and Output 08/27/20 08/28/20 08/28/20 21:59 05:59 13:59 Intake Total 287 530 Output Total 675 420 Balance -388 110 Weight 67.268 kg Alert oriented Nonlabored breathing No anxiety Nondistended abdomen Intake & Output: Intake & Output 08/27/20 08/28/20 08/28/20 21:59 05:59 13:59 Intake Total 287 530 Output Total 675 420 Balance -388 110 Weight 67.268 kg Intake: IV 50 50 Zosyn 2.25 gm In Dextrose 5% in 50 50 Water 50 ml @ 100 mls/hr IV Q6H [facility] Rx#:[id number] Oral 237 480 Output: Urine Catheter Amount 675 420 Other: Meal Dinner Percent of Meal Consumed 50% Feeding Ability Independent Urine Appearance Cloudy Urine Color Straw Dark Yellow Urine Odor Normal OBJ DATA Labs CBC & Chem 7: 08/28/20 06:07 08/28/20 06:07 Labs: Abnormal Lab Results 08/28/20 08/28/20 08/27/20 06:07 06:07 04:46 WBC RBC 3.86 L Hgb 11.5 L MCHC 30.8 L RDW 15.5 H Plt Count 116 L MPV Neut % (Auto) Lymph % (Auto) Lymph # (Auto) Seg Neutrophils % Lymphocytes % Absolute Neutrophils Platelet Estimate Decreased A RBC Morphology Abnormal A Anisocytosis 1+ A Sodium Glucose 118 H Total Bilirubin 1.2 H Direct Bilirubin 0.3 H Lactate Dehydrogenase 241 H 246 H Total Protein 5.8 L Albumin 2.9 L Procalcitonin Urine Protein Urine Glucose (UA) Urine WBC Urine Mucus 08/27/20 08/26/20 08/26/20 04:46 18:05 17:48 WBC 15.3 H RBC Hgb MCHC RDW 15.4 H Plt Count MPV 10.7 H Neut % (Auto) Lymph % (Auto) Lymph # (Auto) Seg Neutrophils % 86 H Lymphocytes % 5 L Absolute Neutrophils Platelet Estimate RBC Morphology Anisocytosis Sodium Glucose Total Bilirubin Direct Bilirubin Lactate Dehydrogenase Total Protein Albumin Procalcitonin 0.37 H Urine Protein >=500 A Urine Glucose (UA) 50 A Urine WBC 7 H Urine Mucus Few A 08/26/20 08/26/20 17:48 17:48 WBC 15.0 H RBC Hgb MCHC RDW 15.0 H Plt Count MPV Neut % (Auto) 90.9 H Lymph % (Auto) 4.5 L Lymph # (Auto) 0.67 L Seg Neutrophils % Lymphocytes % Absolute Neutrophils 13.63 H Platelet Estimate RBC Morphology Anisocytosis Sodium 132 L Glucose 153 H Total Bilirubin Direct Bilirubin Lactate Dehydrogenase Total Protein Albumin Procalcitonin Urine Protein Urine Glucose (UA) Urine WBC Urine Mucus Meds: Medications Acetaminophen (Tylenol) 650 mg PO Q4-6HP PRN; Protocol PRN Reason: Per Pain Protocol/Fever > 101 Hydrocodone Bitart/Acetaminophen ([place] 5/325mg) 1 tab PO Q4HP PRN; Protocol PRN Reason: Pain Atorvastatin Calcium (Lipitor) 10 mg PO QHS [facility] Last Admin: 08/27/20 20:21 Dose: 10 mg Documented by: Bisacodyl (Dulcolax) 10 mg [place] Q2-3DAYS PRN PRN Reason: Constipation Citalopram Hydrobromide (Celexa) 10 mg PO DAILY [facility] Last Admin: 08/28/20 08:32 Dose: 10 mg Documented by: Diagnostic Test (Pha) (Accu-Chek) 1 each FS ACHS [facility] Last Admin: 08/28/20 07:37 Dose: 1 each Documented by: Docusate Sodium (Colace) 100 mg PO BID [facility] Last Admin: 08/28/20 08:32 Dose: 100 mg Documented by: Heparin Sodium (Porcine) (Heparin) 5,000 unit SQ Q12 [facility] Last Admin: 08/28/20 08:33 Dose: 5,000 unit Documented by: Sodium Chloride (Sodium Chloride 0.9%) 1,000 mls @ 50 mls/hr IV .Q20H [facility] Stop: 08/29/20 10:47 Last Admin: 08/28/20 06:07 Dose: Not Given Documented by: Magnesium Sulfate (Magnesium Sulfate) 2 gm in 50 mls @ 50 mls/hr IV UD PRN PRN Reason: MG = or < 1.7 Potassium Chloride 40 meq/ (Dextrose) 520 mls @ 130 mls/hr IV UD PRN PRN Reason: K+ = or < 3.5 Acetaminophen (Ofirmev) 650 mg in 65 mls @ 130 mls/hr IV Q6HP PRN; Protocol PRN Reason: Per Pain Protocol/Fever > 101 Piperacillin Sod/Tazobactam (Sod 2.25 gm/ Dextrose) 50 mls @ 100 mls/hr IV Q6H [facility] Last Admin: 08/28/20 05:12 Dose: 100 mls/hr Documented by: Vancomycin HCl 1,000 mg/ (Sodium Chloride) 250 mls @ 250 mls/hr IV DAILY [facility] Last Admin: 08/27/20 12:23 Dose: 250 mls/hr Documented by: Insulin Glargine (Lantus) 11 unit SQ QPM [facility] Last Admin: 08/27/20 20:22 Dose: 11 units Documented by: Insulin Human Lispro (Humalog) 0 unit SQ ACHS [facility]; Protocol Last Admin: 08/28/20 07:40 Dose: Not Given Documented by: Iron Carb/Multivit/[place]/Folic Acid (Multivitamin W/Minerals) 1 tab PO DAILY [facility] Last Admin: 08/28/20 08:33 Dose: 1 tab Documented by: Melatonin (Melatonin 3mg Tablet) 3 mg PO HSP PRN PRN Reason: Insomnia Last Admin: 08/27/20 23:39 Dose: 3 mg Documented by: Methocarbamol (Robaxin) 500 mg PO BIDP PRN PRN Reason: muscle spasm Metoprolol Succinate (Toprol Xl) 25 mg PO QDAY [facility] Last Admin: 08/28/20 08:32 Dose: 25 mg Documented by: Ondansetron HCl (Zofran Odt) 4 mg SL Q4-6HP PRN; Protocol PRN Reason: Nausea And Vomiting Last Admin: 08/27/20 23:38 Dose: 4 mg Documented by: Ondansetron HCl (Zofran) 4 mg IV Q4-6HP PRN; Protocol PRN Reason: Nausea And Vomiting Pantoprazole Sodium (Protonix) 40 mg PO QAMAC [facility] Last Admin: 08/28/20 07:37 Dose: 40 mg Documented by: Polyethylene Glycol (Miralax) 17 gm PO DAILYP PRN PRN Reason: Constipation Potassium Chloride (Klor-Con) 40 meq PO DAILYP PRN PRN Reason: K+ < 3.5 Pramipexole Dihydrochloride (Mirapex) 1 mg PO QHS [facility] Last Admin: 08/27/20 20:21 Dose: 1 mg Documented by: Senna/Docusate Sodium (Senna Plus Tablet) 1 tab PO HS [facility] Last Admin: 08/27/20 20:22 Dose: Not Given Documented by: Sitagliptin Phosphate (Januvia) 50 mg PO DAILY [facility] Last Admin: 08/28/20 08:31 Dose: 50 mg Documented by: Sodium Chloride (Saline Flush) 10 ml IV Q8 [facility] Last Admin: 08/28/20 05:12 Dose: 10 ml Documented by: Tamsulosin HCl (Flomax) 0.4 mg PO QHS [facility] Last Admin: 08/27/20 20:21 Dose: 0.4 mg Documented by: Vancomycin HCl (Vancomycin Per Pharmacy) 1 order IV UD [facility]; Protocol A/P Narrative A/P Narrative: * Severe sepsis with endorgan dysfunction. Clinical improvement noted with downtrending white count 8K. Source /left lower lobe pneumonia. Continue antibiotic coverage/cultures/crystalloids/Grajeda's catheter * Left lower lobe pneumonia on imaging. Continue antibiotic coverage. * Acute hypoxic respiratory failure on 3 L oxygen. Secondary to pneumonia. * Complicated UTI secondary to bladder outlet obstruction. Clinically improving on antibiotics. * SVT secondary to soegii-jrhmhkbu-vw sinus rhythm. Continue beta-eric. * Bladder outlet obstruction continue Grajeda's catheter/outpatient urology follow-up * History of DM type II continue CC diet/basal prandial insulin/sitagliptin * History of hypertension restart metoprolol * Restless leg syndrome continue pramipexole * Hyperlipidemia on statin * Lymphedema continue home dose diuretics * GERD continue PPI * Chronic pain on hydrocodone/methocarbamol * Full code * Prophylaxis Heparin PLAN * Levaquin for community-acquired pneumonia coverage * Pre-existing medical condition management home meds * Continue Grajeda's catheter until outpatient urology/urogynecology follow-up * Discharge planning per case management * PT OT nutrition support Time Spent With Patient Time: Total time spent is greater than 50% in coordination of care (as documented) at patient's floor/unit and/or counseling patient: QUALITY Stroke Symptom Onset Unknown: No VTE Deep Vein Thrombosis/Pulmonary Embolism Present on Admission: No
[2020-08-28] MEDS ORDERED: LEVOFLOXACIN 500 MG TABLET PO ONE (09:30)
[2020-08-28] MEDS: VANCOMYCIN 1,000 MG in 0.9 % SODIUM CHLORIDE 250 ML IV SCH ×3 (10:28→21:42)
--- NOTE | 2020-08-28 14:22 | Internal Med Progress Note ---
SUBJECTIVE Subjective Patient information: Note initiated : 08/28/20 at 2:15 pm Service Date, if different from initiated Date: [] Patient: Shakira Hou a 85 y/o F admitted on 08/26/20 for anxiety. Chief Complaint: [] Interval history: History of present illness: Ms. Hou is a 85 year old F presented today following recent multiple hospitalizations in the last few months with recurrent sepsis/complicated UTI at [facility]. Patient was discharged to [facility] around mid July following treatment for sepsis. She now presents with fever of 102.5 with chills, malaise, Weakness not feeling well over the last 48 hours. Initial work-up was consistent with severe sepsis with a fever 102.5/pyuria/endorgan dysfunction including SVT with rates in 150s. CT abdomen consistent with mild hydronephrosis/nephrolithiasis/bladder outlet obstruction. Patient was started on antibiotic coverage after cultures were drawn. Grajeda's catheter was placed. She tachycardic/SVT and was started on diltiazem drip. Covid test ordered. Hospital service was consulted for admission in light of above. At the time of evaluation patient is alert and oriented. She is very distressed with her recurrent symptoms and repeated hospitalizations failing to get better. She denies recent diarrhea, dysuria, abdominal pain, headache or photophobia endorses to weakness myalgia and fever along with chills. 08/27-patient doing well. SVT resolved. Stable hemodynamics. No telemetry events. White count unchanged at 15.3. Improved labs. Sodium improved to 136, transfer to medical floor. Continue antibiotic coverage. Cultures negative so far. 08/28-chest imaging consistent with new onset of left lower lobe pneumonia. White count down to 8000. Responding well to antibiotic coverage. Cultures negative so far. Stable hemodynamics. 08/29 Constitutional Vitals: Vital Signs Temp Pulse Resp BP Pulse Ox 97.9 F 83 20 98/57 91 08/28/20 12:00 08/28/20 04:00 08/28/20 12:00 08/28/20 12:00 08/28/20 12:00 Period Temp Pulse Resp BP Sys/Glez Pulse Ox Last 24 Hr 97.9 F-98.9 F 72-83 14-20 98-142/57-79 90-96 Intake and Output 08/28/20 08/28/20 08/28/20 05:59 13:59 21:59 Intake Total 530 530 Output Total 420 Balance 110 530 Weight 67.268 kg Patient Weight 08/29/20 05:59 Weight 67.268 kg Intake & Output: Intake & Output 08/28/20 08/28/20 08/28/20 05:59 13:59 21:59 Intake Total 530 530 Output Total 420 Balance 110 530 Weight 67.268 kg Intake: IV 50 50 Zosyn 2.25 gm In Dextrose 5% in 50 50 Water 50 ml @ 100 mls/hr IV Q6H [facility] Rx#:[id number] Oral 480 480 Output: Urine Catheter Amount 420 Other: Meal Lunch Percent of Meal Consumed 75% Feeding Ability Independent Urine Appearance Cloudy Cloudy Urine Color Dark Yellow Dark Yellow Urine Odor Normal Exam: General: Alert, Awake, No acute Distress Eyes/N/T: EOMI, Head/Neck: neck supple, CV: RRR, No murmurs, Pulm: Clear b/l, no wheezing/rhonchi/rales Abd: soft, nontender, +BS x4 Ext: no clubbing/cyanosis/edema Neuro: Alert, no focal deficits, moves all extremities, Skin: warm/dry OBJ DATA Labs CBC & Chem 7: 08/28/20 06:07 08/28/20 06:07 Labs: Abnormal Lab Results 08/28/20 08/28/20 08/27/20 06:07 06:07 04:46 WBC RBC 3.86 L Hgb 11.5 L MCHC 30.8 L RDW 15.5 H Plt Count 116 L MPV Neut % (Auto) Lymph % (Auto) Lymph # (Auto) Seg Neutrophils % Lymphocytes % Absolute Neutrophils Platelet Estimate Decreased A RBC Morphology Abnormal A Anisocytosis 1+ A Sodium Glucose 118 H Total Bilirubin 1.2 H Direct Bilirubin 0.3 H Lactate Dehydrogenase 241 H 246 H Total Protein 5.8 L Albumin 2.9 L Procalcitonin Urine Protein Urine Glucose (UA) Urine WBC Urine Mucus 08/27/20 08/26/20 08/26/20 04:46 18:05 17:48 WBC 15.3 H RBC Hgb MCHC RDW 15.4 H Plt Count MPV 10.7 H Neut % (Auto) Lymph % (Auto) Lymph # (Auto) Seg Neutrophils % 86 H Lymphocytes % 5 L Absolute Neutrophils Platelet Estimate RBC Morphology Anisocytosis Sodium Glucose Total Bilirubin Direct Bilirubin Lactate Dehydrogenase Total Protein Albumin Procalcitonin 0.37 H Urine Protein >=500 A Urine Glucose (UA) 50 A Urine WBC 7 H Urine Mucus Few A 08/26/20 08/26/20 17:48 17:48 WBC 15.0 H RBC Hgb MCHC RDW 15.0 H Plt Count MPV Neut % (Auto) 90.9 H Lymph % (Auto) 4.5 L Lymph # (Auto) 0.67 L Seg Neutrophils % Lymphocytes % Absolute Neutrophils 13.63 H Platelet Estimate RBC Morphology Anisocytosis Sodium 132 L Glucose 153 H Total Bilirubin Direct Bilirubin Lactate Dehydrogenase Total Protein Albumin Procalcitonin Urine Protein Urine Glucose (UA) Urine WBC Urine Mucus Meds: Medications Acetaminophen (Tylenol) 650 mg PO Q4-6HP PRN; Protocol PRN Reason: Per Pain Protocol/Fever > 101 Hydrocodone Bitart/Acetaminophen ([place] 5/325mg) 1 tab PO Q4HP PRN; Protocol PRN Reason: Pain Atorvastatin Calcium (Lipitor) 10 mg PO QHS [facility] Last Admin: 08/27/20 20:21 Dose: 10 mg Documented by: Bisacodyl (Dulcolax) 10 mg [place] Q2-3DAYS PRN PRN Reason: Constipation Diagnostic Test (Pha) (Accu-Chek) 1 each FS ACHS [facility] Last Admin: 08/28/20 11:39 Dose: 1 each Documented by: Docusate Sodium (Colace) 100 mg PO BID [facility] Last Admin: 08/28/20 08:32 Dose: 100 mg Documented by: Heparin Sodium (Porcine) (Heparin) 5,000 unit SQ Q12 [facility] Last Admin: 08/28/20 08:33 Dose: 5,000 unit Documented by: Sodium Chloride (Sodium Chloride 0.9%) 1,000 mls @ 50 mls/hr IV .Q20H [facility] Stop: 08/29/20 02:23 Last Admin: 08/28/20 06:07 Dose: Not Given Documented by: Magnesium Sulfate (Magnesium Sulfate) 2 gm in 50 mls @ 50 mls/hr IV UD PRN PRN Reason: MG = or < 1.7 Potassium Chloride 40 meq/ (Dextrose) 520 mls @ 130 mls/hr IV UD PRN PRN Reason: K+ = or < 3.5 Acetaminophen (Ofirmev) 650 mg in 65 mls @ 130 mls/hr IV Q6HP PRN; Protocol PRN Reason: Per Pain Protocol/Fever > 101 Piperacillin Sod/Tazobactam (Sod 2.25 gm/ Dextrose) 50 mls @ 100 mls/hr IV Q6H [facility] Last Admin: 08/28/20 11:57 Dose: 100 mls/hr Documented by: Vancomycin HCl 1,000 mg/ (Sodium Chloride) 250 mls @ 250 mls/hr IV Q12H [facility] Last Admin: 08/28/20 10:28 Dose: 250 mls/hr Documented by: Insulin Glargine (Lantus) 11 unit SQ QPM [facility] Last Admin: 08/27/20 20:22 Dose: 11 units Documented by: Insulin Human Lispro (Humalog) 0 unit SQ ACHS [facility]; Protocol Last Admin: 08/28/20 11:57 Dose: 3 unit Documented by: Iron Carb/Multivit/Chess Instructor/Folic Acid (Multivitamin W/Minerals) 1 tab PO DAILY [facility] Last Admin: 08/28/20 08:33 Dose: 1 tab Documented by: Levofloxacin (Levaquin) 250 mg PO DAILY [facility] Melatonin (Melatonin 3mg Tablet) 3 mg PO HSP PRN PRN Reason: Insomnia Last Admin: 08/27/20 23:39 Dose: 3 mg Documented by: Methocarbamol (Robaxin) 500 mg PO BIDP PRN PRN Reason: muscle spasm Metoprolol Succinate (Toprol Xl) 25 mg PO QDAY [facility] Last Admin: 08/28/20 08:32 Dose: 25 mg Documented by: Ondansetron HCl (Zofran Odt) 4 mg SL Q4-6HP PRN; Protocol PRN Reason: Nausea And Vomiting Last Admin: 08/27/20 23:38 Dose: 4 mg Documented by: Ondansetron HCl (Zofran) 4 mg IV Q4-6HP PRN; Protocol PRN Reason: Nausea And Vomiting Pantoprazole Sodium (Protonix) 40 mg PO QAMAC [facility] Last Admin: 08/28/20 07:37 Dose: 40 mg Documented by: Polyethylene Glycol (Miralax) 17 gm PO DAILYP PRN PRN Reason: Constipation Potassium Chloride (Klor-Con) 40 meq PO DAILYP PRN PRN Reason: K+ < 3.5 Pramipexole Dihydrochloride (Mirapex) 1 mg PO QHS [facility] Last Admin: 08/27/20 20:21 Dose: 1 mg Documented by: Senna/Docusate Sodium (Senna Plus Tablet) 1 tab PO HS [facility] Last Admin: 08/27/20 20:22 Dose: Not Given Documented by: Sitagliptin Phosphate (Januvia) 50 mg PO DAILY [facility] Last Admin: 08/28/20 08:31 Dose: 50 mg Documented by: Sodium Chloride (Saline Flush) 10 ml IV Q8 [facility] Last Admin: 08/28/20 05:12 Dose: 10 ml Documented by: Tamsulosin HCl (Flomax) 0.4 mg PO QHS [facility] Last Admin: 08/27/20 20:21 Dose: 0.4 mg Documented by: Vancomycin HCl (Vancomycin Per Pharmacy) 1 order IV UD [facility]; Protocol A/P Narrative A/P Narrative: A: *Severe sepsis: Source /LLL PNA -Clinical improvement noted with downtrending white count 8K. *LLL PNA: -myco/strep/COVID neg *Acute hypoxic respiratory failure: -on 3 L oxygen *Complicated UTI: 2/2 bladder outlet obstruction *SVT: 2/2 sepsis, resolved. Continue home beta-eric *Bladder outlet obstruction: continue Grajeda's catheter/outpatient urology follow-up *CKD III: *DM type II: *HTN: on toprol *Depression: on SSRI *Lymphedema: *GERD/PUD: continue PPI *h/o Oropharyngeal & Esophageal dysphagia: *Chronic pain: on hydrocodone/methocarbamol PLAN: -Levaquin for community-acquired pneumonia coverage -wean O2, IS/Acapella -continue CC diet/basal prandial insulin/sitagliptin -home BB -Continue Grajeda's catheter until outpatient urology/urogynecology follow-up -PT OT nutrition support -ppx: lovenox/home ppi clarify code status, last admit was ok with cpr, but no intubation Time Spent With Patient Time: Total time spent is greater than 50% in coordination of care (as documented) at patient's floor/unit and/or counseling patient: QUALITY Stroke Symptom Onset Unknown: No VTE Deep Vein Thrombosis/Pulmonary Embolism Present on Admission: No
[2020-08-28] MEDS ORDERED: METOPROLOL TARTRATE 5 MG/5 ML VIAL IV PRN (14:23)
[2020-08-28] MEDS ORDERED: MELATONIN 3 MG TABLET PO SCH (21:00)
[2020-08-28] MEDS: TAMSULOSIN 0.4 MG CAPSULE PO SCH (21:23)
[2020-08-28] MEDS: SENNOSIDES/DOCUSATE SODIUM 1 TAB TABLET PO SCH (21:23)
[2020-08-28] MEDS: ATORVASTATIN 10 MG TABLET PO SCH (21:23)
[2020-08-28] MEDS: PRAMIPEXOLE 1 MG TABLET PO SCH (21:23)
[2020-08-28] MEDS: INSULIN GLARGINE, HUMAN 1 UNIT/0.01 ML SQ SCH (21:24)
[2020-08-29] MEDS: PIPERACILLIN SODIUM/TAZOBACTAM 2.25 GM in DEXTROSE 5% IN WATER 50 ML IV SCH ×4 (00:17→17:49)
[2020-08-29] MEDS: ONDANSETRON 4 MG ODT TABLET SL PRN (00:23)
[2020-08-29] MEDS: INSULIN LISPRO 1 UNIT/0.01 ML UNIT SQ SCH ×4 (06:40→20:15)
[2020-08-29] MEDS: PANTOPRAZOLE 40 MG PACKET PO SCH (07:10)
[2020-08-29] MEDS: 0.9 % SODIUM CHLORIDE 10 ML SYRINGE IV SCH ×3 (07:10→20:23)
[2020-08-29] MEDS ORDERED: ALBUMIN HUMAN 12.5 GM/50 ML BAG IV ONE (07:48)
[2020-08-29] MEDS ORDERED: FUROSEMIDE 40 MG/4 ML VIAL IV ONE (07:48)
--- NOTE | 2020-08-29 07:48 | Internal Med Progress Note ---
SUBJECTIVE Subjective Patient information: Note initiated : 08/29/20 at 7:46 am Service Date, if different from initiated Date: [] Patient: Shakira Hou a 85 y/o F admitted on 08/26/20 for anxiety. Chief Complaint: [] Interval history: History of present illness: Ms. Hou is a 85 year old F presented today following recent multiple hospitalizations in the last few months with recurrent sepsis/complicated UTI at [facility]. Patient was discharged to [facility] around mid July following treatment for sepsis. She now presents with fever of 102.5 with chills, malaise, Weakness not feeling well over the last 48 hours. Initial work-up was consistent with severe sepsis with a fever 102.5/pyuria/endorgan dysfunction including SVT with rates in 150s. CT abdomen consistent with mild hydronephrosis/nephrolithiasis/bladder outlet obstruction. Patient was started on antibiotic coverage after cultures were drawn. Grajeda's catheter was placed. She tachycardic/SVT and was started on diltiazem drip. Covid test ordered. Hospital service was consulted for admission in light of above. At the time of evaluation patient is alert and oriented. She is very distressed with her recurrent symptoms and repeated hospitalizations failing to get better. She denies recent diarrhea, dysuria, abdominal pain, headache or photophobia endorses to weakness myalgia and fever along with chills. 08/27-patient doing well. SVT resolved. Stable hemodynamics. No telemetry events. White count unchanged at 15.3. Improved labs. Sodium improved to 136, transfer to medical floor. Continue antibiotic coverage. Cultures negative so far. 08/28-chest imaging consistent with new onset of left lower lobe pneumonia. White count down to 8000. Responding well to antibiotic coverage. Cultures negative so far. Stable hemodynamics. 08/29 No overnight event or new complaints. Reviewed CODE STATUS with her given that the current CODE STATUS is different than the previous admission CODE STATUS. After reviewing with her she is a DO NOT RESUSCITATE. Have occasional cough but and some shortness of breath. Does feel at times that ED drinking fluid food sometimes goes down the wrong pipe. Will obtain speech therapy evaluation. Review of Systems: denies headache/fever/chills/nausea/vomiting/chest or abdominal pain/diarrhea. Otherwise see above. Constitutional Vitals: Vital Signs Temp Pulse Resp BP Pulse Ox 98.4 F 72 18 122/68 92 08/29/20 07:30 08/29/20 07:30 08/29/20 07:30 08/29/20 07:30 08/29/20 07:30 Period Temp Pulse Resp BP Sys/Glez Pulse Ox Last 24 Hr 97.9 F-98.4 F 72-81 16-24 98-149/57-80 90-96 Intake and Output 08/28/20 08/29/20 08/29/20 21:59 05:59 13:59 Intake Total 750 1390 Output Total 400 500 Balance 350 890 Weight 70.307 kg Intake & Output: Intake & Output 08/28/20 08/29/20 08/29/20 21:59 05:59 13:59 Intake Total 750 1390 Output Total 400 500 Balance 350 890 Weight 70.307 kg Intake: IV 350 1050 Sodium Chloride 0.9% 1,000 ml @ 1000 50 mls/hr IV .Q20H [facility] Rx#: [id number] Zosyn 2.25 gm In Dextrose 5% in 100 50 Water 50 ml @ 100 mls/hr IV Q6H [facility] Rx#:[id number] Vancomycin 1,000 mg In Sodium 250 Chloride 0.9% 250 ml @ 250 mls/ hr IV Q12H [facility] Rx#:[id number] Oral 400 340 Output: Urine Catheter Amount 400 500 Other: Urine Appearance Clear Clear Urine Color Bright Yellow Dark Yellow Light Kenyatta Exam: General: Alert, Awake, No acute Distress Eyes/N/T: EOMI, Head/Neck: neck supple, CV: RRR, No murmurs, Pulm: mild rhonchi/wheeze b/l Abd: soft, nontender, +BS x4 Ext: no clubbing/cyanosis/edema Neuro: Alert, no focal deficits, moves all extremities, Skin: warm/dry OBJ DATA Labs CBC & Chem 7: 08/28/20 06:07 08/28/20 06:07 Labs: Abnormal Lab Results 08/28/20 08/28/20 08/27/20 06:07 06:07 04:46 WBC RBC 3.86 L Hgb 11.5 L MCHC 30.8 L RDW 15.5 H Plt Count 116 L MPV Neut % (Auto) Lymph % (Auto) Lymph # (Auto) Seg Neutrophils % Lymphocytes % Absolute Neutrophils Platelet Estimate Decreased A RBC Morphology Abnormal A Anisocytosis 1+ A Sodium Glucose 118 H Total Bilirubin 1.2 H Direct Bilirubin 0.3 H Lactate Dehydrogenase 241 H 246 H Total Protein 5.8 L Albumin 2.9 L Procalcitonin Urine Protein Urine Glucose (UA) Urine WBC Urine Mucus 08/27/20 08/26/20 08/26/20 04:46 18:05 17:48 WBC 15.3 H RBC Hgb MCHC RDW 15.4 H Plt Count MPV 10.7 H Neut % (Auto) Lymph % (Auto) Lymph # (Auto) Seg Neutrophils % 86 H Lymphocytes % 5 L Absolute Neutrophils Platelet Estimate RBC Morphology Anisocytosis Sodium Glucose Total Bilirubin Direct Bilirubin Lactate Dehydrogenase Total Protein Albumin Procalcitonin 0.37 H Urine Protein >=500 A Urine Glucose (UA) 50 A Urine WBC 7 H Urine Mucus Few A 08/26/20 08/26/20 17:48 17:48 WBC 15.0 H RBC Hgb MCHC RDW 15.0 H Plt Count MPV Neut % (Auto) 90.9 H Lymph % (Auto) 4.5 L Lymph # (Auto) 0.67 L Seg Neutrophils % Lymphocytes % Absolute Neutrophils 13.63 H Platelet Estimate RBC Morphology Anisocytosis Sodium 132 L Glucose 153 H Total Bilirubin Direct Bilirubin Lactate Dehydrogenase Total Protein Albumin Procalcitonin Urine Protein Urine Glucose (UA) Urine WBC Urine Mucus Meds: Medications Acetaminophen (Tylenol) 650 mg PO Q4-6HP PRN; Protocol PRN Reason: Per Pain Protocol/Fever > 101 Hydrocodone Bitart/Acetaminophen ([place] 5/325mg) 1 tab PO Q4HP PRN; Protocol PRN Reason: Pain Atorvastatin Calcium (Lipitor) 10 mg PO QHS [facility] Last Admin: 08/28/20 21:23 Dose: 10 mg Documented by: Bisacodyl (Dulcolax) 10 mg [place] Q2-3DAYS PRN PRN Reason: Constipation Diagnostic Test (Pha) (Accu-Chek) 1 each FS ACHS [facility] Last Admin: 08/29/20 06:39 Dose: 1 each Documented by: Docusate Sodium (Colace) 100 mg PO BID [facility] Last Admin: 08/28/20 21:23 Dose: 100 mg Documented by: Enoxaparin Sodium (Lovenox) 40 mg SQ DAILY [facility] Magnesium Sulfate (Magnesium Sulfate) 2 gm in 50 mls @ 50 mls/hr IV UD PRN PRN Reason: MG = or < 1.7 Potassium Chloride 40 meq/ (Dextrose) 520 mls @ 130 mls/hr IV UD PRN PRN Reason: K+ = or < 3.5 Acetaminophen (Ofirmev) 650 mg in 65 mls @ 130 mls/hr IV Q6HP PRN; Protocol PRN Reason: Per Pain Protocol/Fever > 101 Piperacillin Sod/Tazobactam (Sod 2.25 gm/ Dextrose) 50 mls @ 100 mls/hr IV Q6H [facility] Last Admin: 08/29/20 05:32 Dose: 100 mls/hr Documented by: Vancomycin HCl 1,000 mg/ (Sodium Chloride) 250 mls @ 250 mls/hr IV Q12H [facility] Last Admin: 08/28/20 21:42 Dose: 250 mls/hr Documented by: Insulin Glargine (Lantus) 11 unit SQ QPM [facility] Last Admin: 08/28/20 21:24 Dose: 11 units Documented by: Insulin Human Lispro (Humalog) 0 unit SQ ACHS [facility]; Protocol Last Admin: 08/29/20 06:40 Dose: Not Given Documented by: Iron Carb/Multivit/Recruitment Coordinator/Folic Acid (Multivitamin W/Minerals) 1 tab PO DAILY [facility] Last Admin: 08/28/20 08:33 Dose: 1 tab Documented by: Levofloxacin (Levaquin) 250 mg PO DAILY [facility] Melatonin (Melatonin 3mg Tablet) 3 mg PO HSP [facility] Methocarbamol (Robaxin) 500 mg PO BIDP PRN PRN Reason: muscle spasm Metoprolol Succinate (Toprol Xl) 12.5 mg PO QDAY [facility] Metoprolol Tartrate (Lopressor) 5 mg IV Q2HP PRN PRN Reason: Tachyarrhythmias HR>110 Ondansetron HCl (Zofran Odt) 4 mg SL Q4-6HP PRN; Protocol PRN Reason: Nausea And Vomiting Last Admin: 08/29/20 00:23 Dose: 4 mg Documented by: Ondansetron HCl (Zofran) 4 mg IV Q4-6HP PRN; Protocol PRN Reason: Nausea And Vomiting Pantoprazole Sodium (Protonix) 40 mg PO QAMAC [facility] Last Admin: 08/29/20 07:10 Dose: 40 mg Documented by: Polyethylene Glycol (Miralax) 17 gm PO DAILYP PRN PRN Reason: Constipation Potassium Chloride (Klor-Con) 40 meq PO DAILYP PRN PRN Reason: K+ < 3.5 Pramipexole Dihydrochloride (Mirapex) 1 mg PO QHS [facility] Last Admin: 08/28/20 21:23 Dose: 1 mg Documented by: Senna/Docusate Sodium (Senna Plus Tablet) 1 tab PO HS [facility] Last Admin: 08/28/20 21:23 Dose: 1 tab Documented by: Sitagliptin Phosphate (Januvia) 50 mg PO DAILY [facility] Last Admin: 08/28/20 08:31 Dose: 50 mg Documented by: Sodium Chloride (Saline Flush) 10 ml IV Q8 [facility] Last Admin: 08/29/20 07:10 Dose: 10 ml Documented by: Tamsulosin HCl (Flomax) 0.4 mg PO QHS [facility] Last Admin: 08/28/20 21:23 Dose: 0.4 mg Documented by: Vancomycin HCl (Vancomycin Per Pharmacy) 1 order IV UD [facility]; Protocol A/P Narrative A/P Narrative: A: *Severe sepsis: Source /PNA -Clinical improvement *PNA: -myco/strep/COVID neg *Acute hypoxic respiratory failure: -on 2-3 L oxygen *Complicated UTI: 2/2 bladder outlet obstruction *SVT: 2/2 sepsis, resolved. Continue home beta-eric *Bladder outlet obstruction: continue Grajeda's catheter/outpatient urology follow-up *CKD III: *DM type II: *HTN: on toprol *Depression: on SSRI *Lymphedema: *GERD/PUD: continue PPI *h/o Oropharyngeal & Esophageal dysphagia: *Chronic pain: on hydrocodone/methocarbamol PLAN: -cont zosyn pending BC/UC -wean O2, IS/Acapella -continue CC diet/basal prandial insulin/sitagliptin -home BB -Continue Grajeda's catheter until outpatient urology/urogynecology follow-up -ST burdick -PT OT nutrition support -ppx: lovenox/home ppi DNR Time Spent With Patient Time: Total time spent is greater than 50% in coordination of care (as documented) at patient's floor/unit and/or counseling patient: QUALITY Stroke Symptom Onset Unknown: No VTE Deep Vein Thrombosis/Pulmonary Embolism Present on Admission: No
[2020-08-29] MEDS: sitaGLIPtin 50 MG TABLET PO SCH (08:44)
[2020-08-29] MEDS: DOCUSATE SODIUM 100 MG CAPSULE PO SCH ×2 (08:44→20:12)
[2020-08-29] MEDS: MULTIVIT,THER IRON,CA,FA & MIN 1 TABLET PO SCH (08:44)
[2020-08-29] MEDS: ENOXAPARIN 40 MG/0.4 ML SYRINGE SQ SCH (08:45)
[2020-08-29] MEDS ORDERED: LEVOFLOXACIN 250 MG TABLET PO SCH (09:00)
[2020-08-29] MEDS ORDERED: METOPROLOL SUCCINATE 25 MG TAB.XL.24H PO SCH (09:00)
[2020-08-29 10:40] LABS: ALT/SGPT 19 U/L (<40); AST/SGOT 28 U/L (<32); Albumin 3.1 gm/dL (3.2-5.2); Albumin/Globulin Ratio 1.1 (1.0-2.3); Alkaline Phosphatase 76 U/L (39-117); Bilirubin,Direct < 0.2 mg/dL (<0.3); Bilirubin,Total 0.5 mg/dL (0.1-1.0); Blood Urea Nitrogen 15 mg/dL (8-23); Calcium 8.7 mg/dL (8.6-10.4); Carbon Dioxide 24 mmol/L (22-30); Chloride 97 mmol/L (96-108); Globulin 2.8 gm/dL (2.2-3.7); Glomerular Filtration Rate 45; Glucose 137 mg/dL (70-105); Lactate Dehydrogenase 247 U/L (135-225); Triglycerides 98 mg/dL (<150); Uric Acid 2.6 mg/dL (2.5-8.0)
[2020-08-29 10:43] LABS: Eosinophils % (Manual) 2 % (0-7); Hematocrit 36.7 % (36.0-48.0); Hypochromasia FEW (None Seen); Lymphocytes % 20 % (15-49); Mean Cell Volume 100.5 fL (80.0-100.0); Mean Platelet Volume 10.4 fL (7.4-10.4); Monocytes % (Manual) 8 % (1-12); Platelet Count 117 K/mcL (140-440); Platelet Estimate DECREASED (Normal); RBC 3.65 M/mcL (4.00-5.20); RBC Morphology ABNORMAL (Normal); Red Cell Distribution Width 15.2 % (11.5-14.5); Segmented Neutrophils % 70 % (38-78); WBC 6.8 K/mcL (4.5-11.0)
[2020-08-29] MEDS: CITALOPRAM 20 MG TABLET PO SCH (11:03)
[2020-08-29] MEDS: SODIUM CHLORIDE 1 GM TABLET PO SCH ×2 (11:23→20:13)
[2020-08-29] MEDS: PRAMIPEXOLE 1 MG TABLET PO SCH (20:12)
[2020-08-29] MEDS: SENNOSIDES/DOCUSATE SODIUM 1 TAB TABLET PO SCH (20:12)
[2020-08-29] MEDS: ATORVASTATIN 10 MG TABLET PO SCH (20:13)
[2020-08-29] MEDS: TAMSULOSIN 0.4 MG CAPSULE PO SCH (20:13)
[2020-08-29] MEDS: INSULIN GLARGINE, HUMAN 1 UNIT/0.01 ML SQ SCH (20:22)
[2020-08-30] MEDS: ONDANSETRON 4 MG ODT TABLET SL PRN ×3 (01:28→21:52)
[2020-08-30] MEDS: PIPERACILLIN SODIUM/TAZOBACTAM 2.25 GM in DEXTROSE 5% IN WATER 50 ML IV SCH ×2 (01:28→05:54)
[2020-08-30] MEDS: 0.9 % SODIUM CHLORIDE 10 ML SYRINGE IV SCH ×3 (05:54→20:19)
[2020-08-30] MEDS: INSULIN LISPRO 1 UNIT/0.01 ML UNIT SQ SCH ×4 (06:53→20:16)
--- NOTE | 2020-08-30 07:49 | Internal Med Progress Note ---
SUBJECTIVE Subjective Patient information: Note initiated : 08/30/20 at 7:45 am Service Date, if different from initiated Date: [] Patient: Shakira Hou a 85 y/o F admitted on 08/26/20 for anxiety. Chief Complaint: [] Interval history: History of present illness: Ms. Hou is a 85 year old F presented today following recent multiple hospitalizations in the last few months with recurrent sepsis/complicated UTI at [facility]. Patient was discharged to [facility] around mid July following treatment for sepsis. She now presents with fever of 102.5 with chills, malaise, Weakness not feeling well over the last 48 hours. Initial work-up was consistent with severe sepsis with a fever 102.5/pyuria/endorgan dysfunction including SVT with rates in 150s. CT abdomen consistent with mild hydronephrosis/nephrolithiasis/bladder outlet obstruction. Patient was started on antibiotic coverage after cultures were drawn. Grajeda's catheter was placed. She tachycardic/SVT and was started on diltiazem drip. Covid test ordered. Hospital service was consulted for admission in light of above. At the time of evaluation patient is alert and oriented. She is very distressed with her recurrent symptoms and repeated hospitalizations failing to get better. She denies recent diarrhea, dysuria, abdominal pain, headache or photophobia endorses to weakness myalgia and fever along with chills. 08/27-patient doing well. SVT resolved. Stable hemodynamics. No telemetry events. White count unchanged at 15.3. Improved labs. Sodium improved to 136, transfer to medical floor. Continue antibiotic coverage. Cultures negative so far. 08/28-chest imaging consistent with new onset of left lower lobe pneumonia. White count down to 8000. Responding well to antibiotic coverage. Cultures negative so far. Stable hemodynamics. 08/29 No overnight event or new complaints. Reviewed CODE STATUS with her given that the current CODE STATUS is different than the previous admission CODE STATUS. After reviewing with her she is a DO NOT RESUSCITATE. Have occasional cough but and some shortness of breath. Does feel at times that ED drinking fluid food sometimes goes down the wrong pipe. Will obtain speech therapy evaluation. 08/30 No overnight events. Patient says she had a restless sleep but otherwise feels okay and gradually improving. Awaiting speech therapy evaluation. Has occasional cough but denies shortness of breath. Review of Systems: denies headache/fever/chills/nausea/vomiting/chest or abdominal pain/diarrhea. Otherwise see above. Constitutional Vitals: Vital Signs Temp Pulse Resp BP Pulse Ox 98.0 F 108 H 20 102/67 94 08/30/20 03:03 08/30/20 03:03 08/30/20 03:03 08/30/20 03:03 08/30/20 06:53 Period Temp Pulse Resp BP Sys/Glez Pulse Ox Last 24 Hr 97.4 F-98.7 F 69-112 18-22 83-133/44-68 90-94 Intake and Output 08/29/20 08/30/20 08/30/20 21:59 05:59 13:59 Intake Total 850 350 Output Total 725 1225 Balance 125 -875 Weight 70.216 kg Intake & Output: Intake & Output 08/29/20 08/30/20 08/30/20 21:59 05:59 13:59 Intake Total 850 350 Output Total 725 1225 Balance 125 -875 Weight 70.216 kg Intake: IV 50 50 Zosyn 2.25 gm In Dextrose 5% in 50 50 Water 50 ml @ 100 mls/hr IV Q6H [facility] Rx#:[id number] Oral 800 300 Output: Urine Catheter Amount 725 1225 Other: Meal Dinner yogurt Percent of Meal Consumed 50% 100% Feeding Ability Independent Independent Urine Appearance Clear Clear Uretheral (Grajeda) Clear Urine Color Pale Pale Uretheral (Grajeda) Pale Bright Yellow Urine Odor Normal Exam: General: Alert, Awake, No acute Distress Eyes/N/T: EOMI, Head/Neck: neck supple, CV: RRR, No murmurs, Pulm: mild rhonchi b/l, no wheezing today Abd: soft, nontender, +BS x4 Ext: no clubbing/cyanosis/edema Neuro: Alert, no focal deficits, moves all extremities, Skin: warm/dry OBJ DATA Labs CBC & Chem 7: 08/29/20 06:14 08/30/20 05:41 Labs: Abnormal Lab Results 08/29/20 08/29/20 08/28/20 06:14 06:14 06:07 WBC RBC 3.65 L Hgb 11.0 L MCV 100.5 H MCHC 30.0 L RDW 15.2 H Plt Count 117 L MPV Seg Neutrophils % Lymphocytes % Platelet Estimate Decreased A RBC Morphology Abnormal A Hypochromasia Few A Anisocytosis Sodium 130 L Glucose 137 H 118 H Total Bilirubin Direct Bilirubin Lactate Dehydrogenase 247 H 241 H Total Protein 5.8 L Albumin 3.1 L 2.9 L 08/28/20 08/27/20 08/27/20 06:07 04:46 04:46 WBC 15.3 H RBC 3.86 L Hgb 11.5 L MCV MCHC 30.8 L RDW 15.5 H 15.4 H Plt Count 116 L MPV 10.7 H Seg Neutrophils % 86 H Lymphocytes % 5 L Platelet Estimate Decreased A RBC Morphology Abnormal A Hypochromasia Anisocytosis 1+ A Sodium Glucose Total Bilirubin 1.2 H Direct Bilirubin 0.3 H Lactate Dehydrogenase 246 H Total Protein Albumin Meds: Medications Acetaminophen (Tylenol) 650 mg PO Q4-6HP PRN; Protocol PRN Reason: Per Pain Protocol/Fever > 101 Last Admin: 08/30/20 01:28 Dose: 650 mg Documented by: Hydrocodone Bitart/Acetaminophen ([place] 5/325mg) 1 tab PO Q4HP PRN; Protocol PRN Reason: Pain Atorvastatin Calcium (Lipitor) 10 mg PO QHS [facility] Last Admin: 08/29/20 20:13 Dose: 10 mg Documented by: Bisacodyl (Dulcolax) 10 mg [place] Q2-3DAYS PRN PRN Reason: Constipation Citalopram Hydrobromide (Celexa) 10 mg PO DAILY [facility] Last Admin: 08/29/20 11:03 Dose: 10 mg Documented by: Diagnostic Test (Pha) (Accu-Chek) 1 each FS ACHS [facility] Last Admin: 08/30/20 06:52 Dose: 1 each Documented by: Docusate Sodium (Colace) 100 mg PO BID [facility] Last Admin: 08/29/20 20:12 Dose: 100 mg Documented by: Enoxaparin Sodium (Lovenox) 40 mg SQ DAILY [facility] Last Admin: 08/29/20 08:45 Dose: 40 mg Documented by: Magnesium Sulfate (Magnesium Sulfate) 2 gm in 50 mls @ 50 mls/hr IV UD PRN PRN Reason: MG = or < 1.7 Potassium Chloride 40 meq/ (Dextrose) 520 mls @ 130 mls/hr IV UD PRN PRN Reason: K+ = or < 3.5 Acetaminophen (Ofirmev) 650 mg in 65 mls @ 130 mls/hr IV Q6HP PRN; Protocol PRN Reason: Per Pain Protocol/Fever > 101 Piperacillin Sod/Tazobactam (Sod 2.25 gm/ Dextrose) 50 mls @ 100 mls/hr IV Q6H [facility] Last Admin: 08/30/20 05:54 Dose: 100 mls/hr Documented by: Insulin Glargine (Lantus) 11 unit SQ QPM [facility] Last Admin: 08/29/20 20:22 Dose: 11 units Documented by: Insulin Human Lispro (Humalog) 0 unit SQ ACHS [facility]; Protocol Last Admin: 08/30/20 06:53 Dose: Not Given Documented by: Iron Carb/Multivit/Teletype Adjuster/Folic Acid (Multivitamin W/Minerals) 1 tab PO DAILY [facility] Last Admin: 08/29/20 08:44 Dose: 1 tab Documented by: Melatonin (Melatonin 3mg Tablet) 3 mg PO [facility] Methocarbamol (Robaxin) 500 mg PO BIDP PRN PRN Reason: muscle spasm Metoprolol Tartrate (Lopressor) 5 mg IV Q2HP PRN PRN Reason: Tachyarrhythmias HR>110 Ondansetron HCl (Zofran Odt) 4 mg SL Q4-6HP PRN; Protocol PRN Reason: Nausea And Vomiting Last Admin: 08/30/20 01:28 Dose: 4 mg Documented by: Ondansetron HCl (Zofran) 4 mg IV Q4-6HP PRN; Protocol PRN Reason: Nausea And Vomiting Pantoprazole Sodium (Protonix) 40 mg PO QAMAC [facility] Last Admin: 08/29/20 07:10 Dose: 40 mg Documented by: Polyethylene Glycol (Miralax) 17 gm PO DAILYP PRN PRN Reason: Constipation Potassium Chloride (Klor-Con) 40 meq PO DAILYP PRN PRN Reason: K+ < 3.5 Pramipexole Dihydrochloride (Mirapex) 1 mg PO QHS [facility] Last Admin: 08/29/20 20:12 Dose: 1 mg Documented by: Senna/Docusate Sodium (Senna Plus Tablet) 1 tab PO HS [facility] Last Admin: 08/29/20 20:12 Dose: 1 tab Documented by: Sitagliptin Phosphate (Januvia) 50 mg PO DAILY [facility] Last Admin: 08/29/20 08:44 Dose: 50 mg Documented by: Sodium Chloride (Saline Flush) 10 ml IV Q8 [facility] Last Admin: 08/30/20 05:54 Dose: 10 ml Documented by: Tamsulosin HCl (Flomax) 0.4 mg PO QHS [facility] Last Admin: 08/29/20 20:13 Dose: 0.4 mg Documented by: A/P Narrative A/P Narrative: A: *Severe sepsis: Source /PNA -Clinical improvement *PNA: -myco/strep/COVID neg *Acute hypoxic respiratory failure: -on 1L oxygen *Complicated UTI: 2/2 bladder outlet obstruction *SVT: 2/2 sepsis, resolved. Continue home beta-eric *Bladder outlet obstruction: continue Grajeda's catheter/outpatient urology follow-up *CKD III: *DM type II: *HTN: on toprol *Depression: on SSRI *Lymphedema: *GERD/PUD: continue PPI *h/o Oropharyngeal & Esophageal dysphagia: *Chronic pain: on hydrocodone/methocarbamol PLAN: -zosyn to rocephin, pending BC/UC -wean O2, IS/Acapella -continue CC diet/basal prandial insulin/sitagliptin -home BB -Continue Grajeda's catheter until outpatient urology/urogynecology follow-up -ST burdick -PT OT nutrition support -CM for placement needs -ppx: lovenox/home ppi DNR Time Spent With Patient Time: Total time spent is greater than 50% in coordination of care (as documented) at patient's floor/unit and/or counseling patient: QUALITY Stroke Symptom Onset Unknown: No VTE Deep Vein Thrombosis/Pulmonary Embolism Present on Admission: No
[2020-08-30 08:06] LABS: ALT/SGPT 13 U/L (<40); AST/SGOT 16 U/L (<32); Albumin 2.9 gm/dL (3.2-5.2); Albumin/Globulin Ratio 1.1 (1.0-2.3); Alkaline Phosphatase 65 U/L (39-117); Bilirubin,Direct < 0.2 mg/dL (<0.3); Bilirubin,Total 0.5 mg/dL (0.1-1.0); Blood Urea Nitrogen 14 mg/dL (8-23); Calcium 8.7 mg/dL (8.6-10.4); Carbon Dioxide 32 mmol/L (22-30); Chloride 95 mmol/L (96-108); Globulin 2.7 gm/dL (2.2-3.7); Glomerular Filtration Rate 51; Glucose 147 mg/dL (70-105); Lactate Dehydrogenase 169 U/L (135-225); Phosphorous 3.7 mg/dL (2.5-4.5); Triglycerides 61 mg/dL (<150); Uric Acid 2.6 mg/dL (2.5-8.0)
[2020-08-30] MEDS: CITALOPRAM 20 MG TABLET PO SCH (08:33)
[2020-08-30] MEDS: ENOXAPARIN 40 MG/0.4 ML SYRINGE SQ SCH (08:34)
[2020-08-30] MEDS: DOCUSATE SODIUM 100 MG CAPSULE PO SCH ×2 (08:34→20:16)
[2020-08-30] MEDS: PANTOPRAZOLE 40 MG PACKET PO SCH (08:34)
[2020-08-30] MEDS: MULTIVIT,THER IRON,CA,FA & MIN 1 TABLET PO SCH (08:34)
[2020-08-30] MEDS: sitaGLIPtin 50 MG TABLET PO SCH (08:34)
[2020-08-30] MEDS: cefTRIAXone 2 GM in DEXTROSE 5% IN WATER 50 ML IV SCH (09:02)
[2020-08-30 09:06] LABS: Band Neutrophils % 1 % (0-10); Eosinophils % (Manual) 2 % (0-7); Hematocrit 34.3 % (36.0-48.0); Hemoglobin 10.7 g/dL (12.0-15.0); Lymphocytes % 9 % (15-49); Mean Corpuscular HGB Conc 31.2 g/dL (31.0-36.0); Mean Platelet Volume 10.5 fL (7.4-10.4); Monocytes % (Manual) 10 % (1-12); Platelet Count 121 K/mcL (140-440); Platelet Estimate DECREASED (Normal); RBC 3.61 M/mcL (4.00-5.20); RBC Morphology NORMAL (Normal); Reactive Lymphocytes 7 % (0-2); Red Cell Distribution Width 14.6 % (11.5-14.5); Segmented Neutrophils % 71 % (38-78); WBC 5.2 K/mcL (4.5-11.0)
[2020-08-30] MEDS: LACTOBACILLUS 1 CAPSULE PO SCH ×2 (10:34→20:16)
--- NOTE | 2020-08-30 10:58 | Discharge Summary ---
Discharge Provider Provider Patient information: Note initiated : 08/30/20 at 10:56 am Service Date, if different from initiated Date: [] Patient: Shakira Hou 85 y/o F admitted on 08/26/20 for anxiety. Chief Complaint: [] Date of admission: 08/26/20 22:42 Discharge date: 08/31/20 Primary care physician: Ale Long PA-C Consults: 08/27/20 09:15 Consult to Physician [CONS] Routine Comment: Consulting Provider: Jose Vicente Reason For Exam: Physician to Consult Discharge Meds Discharge Medications Home Medications blood sugar diagnostic, drum #1 05/30/20 [History Confirmed 08/27/20 Last Taken Unknown] blood-glucose meter, drum-type #1 05/30/20 [History Confirmed 08/27/20 Last Taken Unknown] pen needle, diabetic 31 gauge x 3/16" #50 each 05/30/20 [Rx Confirmed 08/27/20 Last Taken Unknown] atorvastatin 10 mg tablet 10 mg PO QHS #90 tab 07/04/20 [Rx Confirmed 08/26/20 Last Taken 08/26/20 22:00] fluticasone propionate 50 mcg/actuation nasal spray,suspension 2 spray INTRANASAL QDAY #16 g 07/04/20 [Rx Confirmed 08/27/20 Last Taken 08/26/20 08:00] insulin glargine 100 unit/mL subcutaneous solution 11 unit SUBCUT QPM #10 ml 07/04/20 [Rx Confirmed 08/26/20 Last Taken 08/26/20 16:00] methocarbamol 500 mg tablet 500 mg PO BID PRN #60 tab 07/04/20 [Rx Confirmed 08/27/20 Last Taken Unknown] metoprolol succinate 25 mg tablet,extended release 24 hr 25 mg PO QDAY #30 tab 07/04/20 [Rx Confirmed 08/26/20 Last Taken 08/26/20 08:00] acetaminophen 325 mg tablet 650 mg PO Q4H PRN tab 07/10/20 [History Confirmed 08/27/20 Last Taken Unknown] citalopram 10 mg tablet 10 mg PO QDAY #30 tab 07/10/20 [Rx Confirmed 08/26/20 Last Taken 08/26/20 08:00] insulin lispro 100 unit/mL subcutaneous solution See Rx Instructions SUBCUT .qac #10 ml 07/18/20 [Rx Confirmed 08/26/20 Last Taken 08/26/20 16:30] pantoprazole 40 mg granules delayed-release for susp in packet 40 mg PO QAMAC #90 ea 08/18/20 [Rx Confirmed 08/26/20 Last Taken 08/26/20 08:00] sitagliptin 50 mg tablet 50 mg PO DAILY #30 tab 08/18/20 [Rx Confirmed 08/26/20 Last Taken 08/26/20 08:00] hydrocodone-acetaminophen [[place]] 1 tab PO Q4HP PRN 08/27/20 [History Confirmed 08/27/20 Last Taken Unknown] pramipexole 1 mg PO QHS 08/27/20 [History Confirmed 08/27/20 Last Taken 08/26/20 18:00] tamsulosin 0.4 mg PO QHS 08/27/20 [History Confirmed 08/26/20 Last Taken 08/26/20 22:00] levofloxacin 750 mg PO Q48H #1 tab 08/30/20 [Rx Last Taken Unknown] COURSE Hospital Course Hospital course: History of present illness: Ms. Hou is a 85 year old F presented today following recent multiple hospitalizations in the last few months with recurrent sepsis/complicated UTI at [facility]. Patient was discharged to [facility] around mid July following treatment for sepsis. She now presents with fever of 102.5 with chills, malaise, Weakness not feeling well over the last 48 hours. Initial work-up was consistent with severe sepsis with a fever 102.5/pyuria/endorgan dysfunction including SVT with rates in 150s. CT abdomen consistent with mild hydronephrosis/nephrolithiasis/bladder outlet obstruction. Patient was started on antibiotic coverage after cultures were drawn. Grajeda's catheter was placed. She tachycardic/SVT and was started on diltiazem drip. Covid test ordered. Hospital service was consulted for admission in light of above. At the time of evaluation patient is alert and oriented. She is very distressed with her recurrent symptoms and repeated hospitalizations failing to get better. She denies recent diarrhea, dysuria, abdominal pain, headache or photophobia endorses to weakness myalgia and fever along with chills. 08/27-patient doing well. SVT resolved. Stable hemodynamics. No telemetry events. White count unchanged at 15.3. Improved labs. Sodium improved to 136, transfer to medical floor. Continue antibiotic coverage. Cultures negative so far. 08/28-chest imaging consistent with new onset of left lower lobe pneumonia. White count down to 8000. Responding well to antibiotic coverage. Cultures negative so far. Stable hemodynamics. 08/29 No overnight event or new complaints. Reviewed CODE STATUS with her given that the current CODE STATUS is different than the previous admission CODE STATUS. After reviewing with her she is a DO NOT RESUSCITATE. Have occasional cough but and some shortness of breath. Does feel at times that ED drinking fluid food sometimes goes down the wrong pipe. Will obtain speech therapy evaluation. 08/30 No overnight events. Patient says she had a restless sleep but otherwise feels okay and gradually improving. Awaiting speech therapy evaluation. Has occasional cough but denies shortness of breath. 08/31 No overnight event or new complaints. Seen by speech placed on dysphagia diet. Stable for discharge. A: *Sepsis: Source /PNA -Clinical improvement *PNA: -myco/strep/COVID neg *Acute hypoxic respiratory failure: -on 1L oxygen *Complicated UTI: 2/2 bladder outlet obstruction *SVT: 2/2 sepsis, resolved. Continue home beta-eric *Bladder outlet obstruction: continue Grajeda's catheter/outpatient urology follow-up *CKD III: *DM type II: *HTN: on toprol *Depression: on SSRI *Lymphedema: *GERD/PUD: continue PPI *h/o Oropharyngeal & Esophageal dysphagia: diet per ST, level 6 with thin liquids. *Chronic pain: on hydrocodone/methocarbamol Discharge diagnosis: Pneumonia urinary tract infection acute hypoxic respite failure Secondary discharge diagnosis: Diabetes hypertension depression GERD dysphagia phonic pain Time Spent with Patient Time attestation: Total time spent providing and/or coordinating discharge services: Time spent: Greater than 30 minutes EXAM Constitutional Vitals: Temp Pulse Resp BP Pulse Ox 97.9 F 71 20 137/76 93 08/30/20 08:00 08/30/20 08:00 08/30/20 08:00 08/30/20 08:00 08/30/20 08:00 Discharge Data Data Completed and Pending Labs on day of discharge: Labs from last 24 hours 08/30/20 08/30/20 05:41 05:41 WBC 5.2 RBC 3.61 L Hgb 10.7 L Hct 34.3 L MCV 95.0 MCH 29.6 MCHC 31.2 RDW 14.6 H Plt Count 121 L MPV 10.5 H Seg Neutrophils % 71 Band Neutrophils % 1 Lymphocytes % 9 L Monocytes % (Manual) 10 Eosinophils % (Manual) 2 Reactive Lymphocytes 7 H Platelet Estimate Decreased A RBC Morphology Normal Sodium 131 L Potassium 4.5 Chloride 95 L Carbon Dioxide 32 H Anion Gap 4.0 L BUN 14 Creatinine 1.0 GFR Calculation 51 Glucose 147 H Uric Acid 2.6 Calcium 8.7 Phosphorus 3.7 Magnesium 1.8 Total Bilirubin 0.5 Direct Bilirubin < 0.2 GGT 27 AST 16 ALT 13 Alkaline Phosphatase 65 Lactate Dehydrogenase 169 Total Protein 5.6 L Albumin 2.9 L Globulin 2.7 Albumin/Globulin Ratio 1.1 Triglycerides 61 Preliminary micro results at discharge 08/26/20 17:53 Blood Culture - Preliminary Blood 08/26/20 17:48 Blood Culture - Preliminary Blood Discharge Plan Patient/Caregiver Discharge Instructions Activity: increase activity as tolerated Diet: Consistent Carbohydrate Activity Restrictions/Additional Instructions: Follow-up with urologist/working manager as scheduled Prescriptions: New levofloxacin 750 mg tablet 750 mg PO Q48H Qty: 1 RF: 0 No Action (DME) pen needle, diabetic [BD Ultra-Fine Mini Pen Needle] 31 gauge x 3/16" needle See Rx Instructions .ROUTE .MEDSUPPLY Qty: 50 RF: 0 (DME) blood-glucose meter, drum-type Kit See Rx Instructions .ROUTE .MEDSUPPLY Qty: 1 RF: 0 (DME) blood sugar diagnostic, drum Strip See Rx Instructions .ROUTE .MEDSUPPLY Qty: 1 RF: 0 insulin glargine 100 unit/mL solution 11 unit subcut QPM Qty: 10 RF: 1 methocarbamol 500 mg tablet 500 mg PO BID PRN (Reason: muscle spasm) Qty: 60 RF: 0 metoprolol succinate 25 mg tablet extended release 24 hr 25 mg PO QDAY Qty: 30 RF: 0 atorvastatin 10 mg tablet 10 mg PO QHS Qty: 90 RF: 0 fluticasone propionate [Flonase Allergy Relief] 50 mcg/actuation spray,suspension 2 spray INTRANASAL QDAY Qty: 16 RF: 3 Januvia 50 mg tablet 50 mg PO DAILY Qty: 30 RF: 0 Protonix [address] for susp in packet 40 mg PO QAMAC Qty: 90 RF: 0 acetaminophen [Tylenol] 325 mg tablet 650 mg PO Q4H PRN (Reason: Pain) RF: 0 citalopram 10 mg tablet 10 mg PO QDAY Qty: 30 RF: 3 insulin lispro 100 unit/mL solution See Rx Instructions subcut .qac Qty: 10 RF: 3 pramipexole 1 mg tablet 1 mg PO QHS RF: 0 hydrocodone-acetaminophen [[place]] 5-325 mg tablet 1 tab PO Q4HP PRN (Reason: Pain) RF: 0 tamsulosin 0.4 mg capsule 0.4 mg PO QHS RF: 0 Follow Up Plan Follow up with: Ale Long PA-C [Primary Care Provider] - Patient Disposition: Xfer SNF Prognosis: Fair Rehab Potential: Fair I certify that the patient requires SNF services: Yes Overall status at discharge: patient is progressing back to baseline Discharge Orders: Discharge Order (Routine); Ordered 08/31/20 Ordered By: Gerry Barajas [facility] VTE Deep Vein Thrombosis/Pulmonary Embolism Present on Admission: No
[2020-08-30] MEDS: INSULIN GLARGINE, HUMAN 1 UNIT/0.01 ML SQ SCH (20:15)
[2020-08-30] MEDS: TAMSULOSIN 0.4 MG CAPSULE PO SCH (20:16)
[2020-08-30] MEDS: SENNOSIDES/DOCUSATE SODIUM 1 TAB TABLET PO SCH (20:16)
[2020-08-30] MEDS: ATORVASTATIN 10 MG TABLET PO SCH (20:17)
[2020-08-30] MEDS: PRAMIPEXOLE 1 MG TABLET PO SCH (20:17)
[2020-08-31] MEDS: 0.9 % SODIUM CHLORIDE 10 ML SYRINGE IV SCH ×3 (06:11→21:03)
[2020-08-31] MEDS: INSULIN LISPRO 1 UNIT/0.01 ML UNIT SQ SCH ×4 (07:35→20:48)
[2020-08-31] MEDS: DOCUSATE SODIUM 100 MG CAPSULE PO SCH ×2 (07:42→20:48)
[2020-08-31] MEDS: MULTIVIT,THER IRON,CA,FA & MIN 1 TABLET PO SCH (07:42)
[2020-08-31] MEDS: CITALOPRAM 20 MG TABLET PO SCH (07:42)
[2020-08-31] MEDS: LACTOBACILLUS 1 CAPSULE PO SCH ×2 (07:43→20:48)
[2020-08-31] MEDS: sitaGLIPtin 50 MG TABLET PO SCH (07:43)
[2020-08-31] MEDS: PANTOPRAZOLE 40 MG PACKET PO SCH (07:43)
[2020-08-31] MEDS: ENOXAPARIN 40 MG/0.4 ML SYRINGE SQ SCH (07:45)
[2020-08-31] MEDS: cefTRIAXone 2 GM in DEXTROSE 5% IN WATER 50 ML IV SCH (07:45)
[2020-08-31 08:25] LABS: ALT/SGPT 12 U/L (<40); AST/SGOT 21 U/L (<32); Albumin 3.1 gm/dL (3.2-5.2); Alkaline Phosphatase 73 U/L (39-117); Bilirubin,Direct < 0.2 mg/dL (<0.3); Bilirubin,Total 0.5 mg/dL (0.1-1.0); Blood Urea Nitrogen 9 mg/dL (8-23); Calcium 9.1 mg/dL (8.6-10.4); Carbon Dioxide 33 mmol/L (22-30); Chloride 91 mmol/L (96-108); Globulin 3.2 gm/dL (2.2-3.7); Glomerular Filtration Rate 78; Glucose 80 mg/dL (70-105); Lactate Dehydrogenase 266 U/L (135-225); Phosphorous 2.7 mg/dL (2.5-4.5); Triglycerides 62 mg/dL (<150); Uric Acid 2.5 mg/dL (2.5-8.0)
[2020-08-31 08:55] LABS: Anisocytosis 1+ (None Seen); Band Neutrophils % 3 % (0-10); Hematocrit 37.7 % (36.0-48.0); Hemoglobin 11.7 g/dL (12.0-15.0); Lymphocytes % 20 % (15-49); Mean Cell Volume 95.2 fL (80.0-100.0); Mean Platelet Volume 10.3 fL (7.4-10.4); Monocytes % (Manual) 7 % (1-12); Platelet Count 138 K/mcL (140-440); Platelet Estimate DECREASED (Normal); RBC 3.96 M/mcL (4.00-5.20); RBC Morphology ABNORMAL (Normal); Red Cell Distribution Width 14.5 % (11.5-14.5); Segmented Neutrophils % 70 % (38-78)
[2020-08-31] MEDS ORDERED: LABETALOL 5 MG/ML ML IV PRN (09:48)
[2020-08-31] MEDS: METOPROLOL SUCCINATE 25 MG TAB.XL.24H PO SCH (10:05)
[2020-08-31] MEDS: INSULIN GLARGINE, HUMAN 1 UNIT/0.01 ML SQ SCH (20:47)
[2020-08-31] MEDS: ATORVASTATIN 10 MG TABLET PO SCH (20:48)
[2020-08-31] MEDS: SENNOSIDES/DOCUSATE SODIUM 1 TAB TABLET PO SCH (20:48)
[2020-08-31] MEDS: TAMSULOSIN 0.4 MG CAPSULE PO SCH (20:48)
[2020-08-31] MEDS: PRAMIPEXOLE 1 MG TABLET PO SCH (20:49)
[2020-09-01] MEDS: 0.9 % SODIUM CHLORIDE 10 ML SYRINGE IV SCH ×2 (06:33→13:18)
[2020-09-01] MEDS: INSULIN LISPRO 1 UNIT/0.01 ML UNIT SQ SCH ×2 (07:36→11:42)
[2020-09-01] MEDS: CITALOPRAM 20 MG TABLET PO SCH (08:23)
[2020-09-01] MEDS: DOCUSATE SODIUM 100 MG CAPSULE PO SCH (08:24)
[2020-09-01] MEDS: MULTIVIT,THER IRON,CA,FA & MIN 1 TABLET PO SCH (08:24)
[2020-09-01] MEDS: METOPROLOL SUCCINATE 25 MG TAB.XL.24H PO SCH (08:24)
[2020-09-01] MEDS: sitaGLIPtin 50 MG TABLET PO SCH (08:25)
[2020-09-01] MEDS: PANTOPRAZOLE 40 MG PACKET PO SCH (08:25)
[2020-09-01] MEDS: ENOXAPARIN 40 MG/0.4 ML SYRINGE SQ SCH (08:27)
[2020-09-01] MEDS: cefTRIAXone 2 GM in DEXTROSE 5% IN WATER 50 ML IV SCH (08:27)
[2020-09-01] MEDS: LACTOBACILLUS 1 CAPSULE PO SCH (08:28)
== END 2020-09-01 13:25 | DRG 871 ==
LOC: ED 16:36 → ICU 22:42 → MEDSUR 08-27 10:50
PROVIDERS: ADMIT Internal Medicine; ATTEND Internal Medicine